=== PATIENT | female | born 1970 | race Caucasian/White ===

== ENCOUNTER → 2017-03-02 | Outpatient (CLI) | payer BC ==
[2017-03-02 18:10] LABS: Follicle Stimulating Hormone 3.8 mIU/mL; Prolactin 22.4 ng/mL (3.0-18.6)
== END ==
LOC: LABWHC1 16:57
PROVIDERS: ATTEND Family Medicine
DX: N64.3 Galactorrhea not associated with childbirth (principal)
CPT/HCPCS: 36415; 82533; 82670; 83001; 83002; 84146; 84439; 84443; 84481

== ENCOUNTER → 2017-03-11 | Outpatient (CLI) | payer BC ==
--- NOTE | 2017-03-23 11:43 | MM ---
Reason for exam: screening (asymptomatic). Last mammogram was performed 7 years and 1 month ago. History: Patient had first child at age 35. Family history of breast cancer in mother at age 68. Took hormonal contraceptives for 12 years beginning at age 16. Physical Findings: A clinical breast exam by your physician is recommended on an annual basis and results should be correlated with mammographic findings. MG 3D Screening Mammo W/Cad Bilateral CC and MLO view(s) were taken. Prior study comparison: January 18, 2014, mammogram, performed at [facility]. The breast tissue is heterogeneously dense. This may lower the sensitivity of mammography. There is no discrete abnormality. ASSESSMENT: Negative, BI-RAD 1 RECOMMENDATION: Routine screening mammogram of both breasts in 1 year. Manage patient on a clinical basis. Nipple discharge.
== END | disposition home or self-care (01) ==
LOC: RADMAMWWP 07:47
PROVIDERS: ATTEND Family Medicine
DX: Z12.31 Encounter for screening mammogram for malignant neoplasm of breast (principal); Z80.3 Family history of malignant neoplasm of breast
CPT/HCPCS: 77063; G0202

== ENCOUNTER → 2017-03-19 | Outpatient (CLI) | payer BC ==
[2017-03-19 12:04] LABS: Prolactin 24.5 ng/mL (3.0-18.6)
[2017-03-19 16:45] LABS: ACTH 10.9 pg/mL (0.00-45.99)
== END | disposition home or self-care (01) ==
LOC: LABWHC1 07:35
PROVIDERS: ATTEND Internal Medicine Endocrinology, Diabetes & Metabolism
DX: E22.1 Hyperprolactinemia (principal); E27.40 Unspecified adrenocortical insufficiency; R53.83 Other fatigue
CPT/HCPCS: 36415; 82024; 82533; 82607; 84146; 84439; 84443; 84480

== ENCOUNTER → 2017-04-04 | Outpatient (CLI) | payer BC ==
--- NOTE | 2017-04-04 11:10 | MR ---
Pituitary MRI HISTORY: Hyperprolactinemia Multiplanar multisequence and postcontrast images obtained through the sella turcica following 20 cc MultiHance IV Correlation to prior brain MRI 21 January 2014 The pituitary shows a stable appearance. No area of focal decreased enhancement to suggest pituitary adenoma, the pituitary shows stable size. Pituitary stalk is midline. Suprasellar cistern is unremark able. Optic chiasm is within normal limits. Cavernous sinuses show symmetric. Incidental note made of probable mucus retention cyst to the right of midline in the maxillary sinus. Corpus callosum is unremarkable. There are normal vascular flow voids. IMPRESSION: Pituitary adenoma is not evident.
== END | disposition home or self-care (01) ==
LOC: RADMRIMAIN 09:36
PROVIDERS: ATTEND Internal Medicine Endocrinology, Diabetes & Metabolism
DX: E22.1 Hyperprolactinemia (principal)
CPT/HCPCS: 70553; A9577

== ENCOUNTER → 2018-01-14 | Outpatient (CLI) | payer BC ==
[2018-01-14 08:09] LABS: Basophils % (A) 1 %; Eosinophils # (A) 0.2 k/uL (0-0.7); Eosinophils % (A) 3 %; HCT 41.9 % (34.0-46.0); Lymphocytes # (A) 1.7 k/uL (1.0-4.8); Lymphocytes % (A) 28 %; MCH 30.6 pg (25.0-35.0); MCHC 33.4 g/dL (31.0-37.0); MCV 91.5 fL (80.0-100.0); Mean Platelet Volume 7.2; Monocytes # (A) 0.3 k/uL (0-1.0); Monocytes % (A) 5 %; Neutrophils # (A) 3.9 k/uL (1.3-7.7); Neutrophils % (A) 62 %; Platelet Count 308 k/uL (150-450); RBC 4.58 m/uL (3.80-5.40); RDW 12.6 % (11.5-15.5); WBC 6.2 k/uL (3.8-10.6)
== END | disposition home or self-care (01) ==
LOC: LABPAT 07:40
PROVIDERS: ATTEND Obstetrics & Gynecology Obstetrics
DX: Z01.812 Encounter for preprocedural laboratory examination (principal); N92.1 Excessive and frequent menstruation with irregular cycle
CPT/HCPCS: 36415; 85025

== ENCOUNTER 2018-02-02 06:15 | Day surgery (SDC) | payer BC ==
[2018-01-29 12:06] VITALS: BMI 34.0
[~2018-02-02 06:15] MED LIST: DEXAMETHASONE SOD PHOSPHATE 10 MG/ML 1 ML VIAL IV ONE; LACTATED RINGERS 1,000 ML IV SCH; LIDOCAINE 1% 20 ML VIAL (10MG/ML) FOR IV START INTRADERMA PRN; MIDAZOLAM 2 MG/2 ML VIAL IV PRN; MORPHINE SULFATE 4 MG/ML SYRINGE IV PRN; ONDANSETRON 4 MG/2 ML VIAL IVP ONE; Pre Op ABX Message 1 EACH MISC MISCELLANE ONE; SCOPOLAMINE 1.5MG/72HR PATCH TRANSDERM ONE
[2018-02-02] MEDS ORDERED: LACTATED RINGERS 1,000 ML IV ONE ×3 (06:41→08:52)
[2018-02-02] MEDS ORDERED: fentaNYL (PF) 50 MCG/ML 2 ML AMP ONE (07:37)
[2018-02-02] MEDS ORDERED: PROPOFOL 10 MG/ML 20 ML VIAL IV ONE (07:37)
[2018-02-02] MEDS ORDERED: MIDAZOLAM 2 MG/2 ML VIAL ONE (07:37)
[2018-02-02] MEDS ORDERED: LIDOCAINE 1% INJ 10MG/ML (20 ML MDV) ONE (07:37)
[2018-02-02] MEDS ORDERED: KETOROLAC 30 MG/ML 1 ML VIAL ONE (07:37)
--- NOTE | 2018-02-02 08:10 | P.OP ---
Date of Procedure: 02/02/18 Preoperative Diagnosis: Menorrhagia Postoperative Diagnosis: Same Procedure(s) Performed: Hysteroscopy, dilation and curettage, endometrial ablation with NovaSure Anesthesia: MAC Surgeon: Lotus Vasques Estimated Blood Loss (ml): 5 IV fluids (ml): 500 Urine output (ml): 100 Pathology: other (Endometrial curettings) Condition: stable Disposition: PACU Indications for Procedure: Menorrhagia Operative Findings: Normal endometrial cavity with proliferative endometrium Description of Procedure: Patient was seen in the preoperative area and informed consent was obtained. Patient denied questions and was taken back to the operating room once in the operating suite and general anesthesia was obtained by the anesthesia Department without difficulty. She was then prepped and draped in the normal sterile fashion in the dorsal lithotomy position. Lateral catheter was then used to drain the bladder of clear yellow urine. A weighted speculum was placed in the posterior vaginal vault the anterior lip of the cervix was visualized and grasped with a single-tooth tenaculum the endocervical canal was then dilated to 18-[place]. Hysteroscope was placed through the cervix and toward endometrial cavity the above-noted findings were visualized. At this point a sharp curettage was then performed until a gritty texture was noted in all 4 quadrants of the uterine cavity. At this time the NovaSure device was opened and set to the uterine measurements a length of 4 with of 3.9, power 86 for a total cycle time of 79. Of note it did pass the cavity assessment prior to enabling the device. After the cycle was complete the NovaSure was removed without difficulty. The single-tooth tenaculum was taken off of the anterior lip of the cervix hemostasis was appreciated. Correct 2 patient tolerated procedure well and was taken to the recovery room awake and in stable condition
[2018-02-02 08:24] VITALS: RESP 16; TEMP 97.8
[2018-02-02 09:46] VITALS: BP 106/59; PULSE 65
== END 2018-02-02 09:55 | disposition home or self-care (01) ==
LOC: OR 06:15
PROVIDERS: ATTEND Obstetrics & Gynecology Obstetrics
DX: N92.0 Excessive and frequent menstruation with regular cycle (principal); J45.909 Unspecified asthma, uncomplicated; E07.9 Disorder of thyroid, unspecified; F39 Unspecified mood [affective] disorder; Z79.899 Other long term (current) drug therapy
CPT/HCPCS: 81025; 88305; 58563; J2250; J1100; J2405; J2001; J3010; J1885; J2704

== ENCOUNTER → 2018-06-18 | Outpatient (CLI) | payer BC ==
--- NOTE | 2018-06-22 14:11 | MM ---
Reason for exam: screening (asymptomatic). Last mammogram was performed 1 year and 3 months ago. History: Patient had first child at age 35. Family history of breast cancer in paternal aunt and breast cancer in mother at age 68. Took hormonal contraceptives for 12 years beginning at age 16. MG 3D Screening Mammo W/Cad Bilateral CC and MLO view(s) were taken. XCCL view(s) were taken of the right breast. Prior study comparison: March 11, 2017, bilateral MG 3d screening mammo w/cad. January 18, 2014, mammogram, performed at [facility]. The breast tissue is heterogeneously dense. This may lower the sensitivity of mammography. No suspicious left breast abnormality. New focal asymmetry in the right lower inner quadrant at anterior-middle depth. ASSESSMENT: Incomplete: need additional imaging evaluation, BI-RAD 0 RECOMMENDATION: Special view mammogram of the right breast.
== END | disposition home or self-care (01) ==
LOC: RADMAMWWP 07:44
PROVIDERS: ATTEND Family Medicine
DX: Z12.31 Encounter for screening mammogram for malignant neoplasm of breast (principal)
CPT/HCPCS: 77063; 77067

== ENCOUNTER → 2018-06-23 | Outpatient (CLI) | payer BC ==
--- NOTE | 2018-06-24 10:03 | MM ---
Reason for exam: additional evaluation requested from abnormal screening. Last mammogram was performed less than 1 month ago. History: Patient is postmenopausal and had first child at age 35. Family history of breast cancer in paternal aunt and breast cancer in mother at age 68. Took hormonal contraceptives for 12 years beginning at age 16. Physical Findings: Nurse did not find any significant physical abnormalities on exam. MG 3D Work Up W/Cad RT CC and MLO view(s) were taken of the right breast. Prior study comparison: June 18, 2018, bilateral MG 3d screening mammo w/cad. March 11, 2017, bilateral MG 3d screening mammo w/cad. January 18, 2014, mammogram, performed at [facility]. No distinct lesion persists on additional views. These results were verbally communicated with the patient and result sheet given to the patient on 06/23/18. ASSESSMENT: Negative, BI-RAD 1 RECOMMENDATION: Return to routine screening mammogram schedule for both breasts.
== END ==
LOC: RADMAMWWP 07:35
PROVIDERS: ATTEND Family Medicine
DX: R92.8 Other abnormal and inconclusive findings on diagnostic imaging of breast (principal)
CPT/HCPCS: 77061; 77065

== ENCOUNTER → 2019-07-21 | Outpatient (CLI) | payer BC ==
[2019-07-21 09:16] LABS: HCT 43.7 % (34.0-46.0); HGB 14.9 gm/dL (11.4-16.0); MCH 31.8 pg (25.0-35.0); MCV 93.5 fL (80.0-100.0); Platelet Count 257 k/uL (150-450); RBC 4.67 m/uL (3.80-5.40); RDW 12.6 % (11.5-15.5); WBC 5.6 k/uL (3.8-10.6)
[2019-07-21 09:18] LABS: Appearance,Urine Clear (Clear); Bilirubin,Urine Negative (Negative); Blood,Urine Negative (Negative); Color,Urine Yellow; Glucose,Urine (UA) Negative (Negative); Ketones,Urine Negative (Negative); Leukocyte Esterase,Urine Negative (Negative); Nitrite,Urine Negative (Negative); PH, Urine 5.5 (5.0-8.0); Protein,Urine Negative (Negative); Specific Gravity,Urine 1.023 (1.001-1.035); Urobilinogen,Urine <2.0 mg/dL (<2.0)
[2019-07-21 16:40] LABS: African American GFR (CKD) 102.5 (60.0-200.0); Albumin 4.6 g/dL (3.80-4.90); Albumin/Globulin Ratio 2.42 (1.60-3.17); Anion Gap 7.8 mmol/L (4.00-12.00); BUN/Creat Ratio 27.5 Ratio (12.00-20.00); Calcium 9.6 mg/dL (8.7-10.3); Carbon Dioxide 27.2 mmol/L (21.6-31.8); Chol/HDL Ratio 2.86; Globulin 1.9 g/dL (1.6-3.3); LDL Cholesterol,Calculated 132.8 mg/dL (0.0-131.0); Potassium 4.6 mmol/L (3.5-5.5); Total Bilirubin 0.2 mg/dL (0.2-1.2); Total Protein 6.5 g/dL (6.2-8.2); VLDL Calculation 12.2 mg/dL (5.00-40.00)
== END | disposition home or self-care (01) ==
LOC: LABWHC1 08:28
PROVIDERS: ATTEND Family Medicine
DX: Z00.00 Encounter for general adult medical examination without abnormal findings (principal)
CPT/HCPCS: 36415; 80053; 80061; 81003; 85027

== ENCOUNTER 2019-12-05 16:52 | Emergency (ER) | payer BC ==
[2019-12-05 17:17] VITALS: PULSE 88; RESP 16; TEMP 98.3
[2019-12-05] MEDS ORDERED: DICYCLOMINE 10 MG/ML 2 ML AMP IM STA (17:48)
[2019-12-05] MEDS ORDERED: ONDANSETRON 4 MG/2 ML VIAL IVP STA (17:48)
[2019-12-05] MEDS ORDERED: PANTOPRAZOLE 40 MG/10 ML VIAL IVP STA (17:48)
[2019-12-05] MEDS ORDERED: KETOROLAC 30 MG/ML 1 ML VIAL IVP STA (17:48)
[2019-12-05] MEDS ORDERED: SODIUM CHLORIDE 0.9% 1,000 ML IV STA (17:48)
--- NOTE | 2019-12-05 17:54 | ED ---
Abdominal Pain HPI - General Source: patient Mode of arrival: ambulatory Limitations: no limitations <Salvador Vazquez - Last Filed: 12/05/19 20:37> <Delia Farah - Last Filed: 12/09/19 14:58> - General Chief Complaint: Abdominal Pain Stated Complaint: rt sided abd pain Time Seen by Provider: 12/05/19 17:33 - History of Present Illness Initial Comments: Patient is a 49-year-old female presents emergency Department with a chief complaint of abdominal pain. Patient states she has developed right lower quadrant abdominal pain over the last 3 weeks that has been gradually increasing severity. The pain is radiating to her right groin region and proximal anterior aspect of the right upper thigh. Patient reports taking ibuprofen that has been the only alleviating factor. Patient reports the pain is sharp and constant in nature. Patient reports the pain is not related to by mouth intake. Patient states over the last few days she is also developed nausea but no vomiting or diarrhea. Patient also reports decreased appetite. She does night sweats over the last few days but denies any fevers or chills. She denies increased urgency or frequency or dysuria. Patient denies any obstructive urinary symptoms. Denies hematuria, hematochezia or melena. Denies history of kidney stones. Denies any back pain chest pain or shortness of breath. Patient denies any extraneous physical activity prior to or since the symptoms began. (Salvador Vazquez) - Related Data Home Medications Medication Instructions Recorded Confirmed Citalopram Hydrobromide [CeleXA] 40 mg PO HS 01/29/18 02/02/18 Testosterone & Estrogen 1 dose SQ DIRECTED PRN 01/29/18 02/02/18 Thyroid,Pork [Honing Machine Operator Tool Thyroid 120] 30 mg PO DAILY 01/29/18 01/29/18 Vitamin A/D/K 1 dose PO DAILY 01/29/18 02/02/18 Allergies Allergy/AdvReac Type Severity Reaction Status Date / Time No Known Allergies Allergy Verified 01/29/18 11:50 Review of Systems ROS Other: All systems not noted in ROS Statement are negative. <Salvador Vazquez - Last Filed: 12/05/19 20:37> ROS Other: All systems not noted in ROS Statement are negative. <Delia Farah - Last Filed: 12/09/19 14:58> ROS Statement: Those systems with pertinent positive or pertinent negative responses have been documented in the HPI. Past Medical History Past Medical History: No Reported History History of Any Multi-Drug Resistant Organisms: None Reported Additional Past Surgical History / Comment(s): lap surgery. Past Psychological History: No Psychological Hx Reported Smoking Status: Current every day smoker Past Alcohol Use History: None Reported Past Drug Use History: None Reported <Salvador Vazquez - Last Filed: 12/05/19 20:37> General Exam Limitations: no limitations General appearance: alert, in no apparent distress Head exam: Present: atraumatic, normocephalic, normal inspection Eye exam: Present: normal appearance, PERRL, EOMI Pupils: Present: normal accommodation ENT exam: Present: normal exam, normal oropharynx, mucous membranes moist Neck exam: Present: normal inspection, full ROM Respiratory exam: Present: normal lung sounds bilaterally. Absent: wheezes Cardiovascular Exam: Present: regular rate, normal rhythm, normal heart sounds GI/Abdominal exam: Present: soft, tenderness (Right lower quadrant abdominal pain. McBurney point tenderness. Negative Rovsing, obturator or Psoas sign.). Absent: distended, guarding, rebound, rigid, mass, hernia Extremities exam: Present: normal inspection, full ROM, normal capillary refill, other (+2 ulnar radial pulses bilaterally.). Absent: calf tenderness (Negative Homans bilaterally.) Back exam: Present: normal inspection, full ROM. Absent: CVA tenderness (R), CVA tenderness (L) Neurological exam: Present: alert, oriented X3 Psychiatric exam: Present: normal affect, normal mood Skin exam: Present: warm, dry, intact, normal color <Salvador Vazquez - Last Filed: 12/05/19 20:37> Course Vital Signs 12/05/19 17:13 Temperature 98.3 F Pulse Rate 88 Respiratory 16 Rate Medical Decision Making - Lab Data Result diagrams: 12/05/19 18:10 12/05/19 18:10 <Salvador Vazquez - Last Filed: 12/05/19 20:37> - Lab Data Result diagrams: 12/05/19 18:10 12/05/19 18:10 <Delia Farah - Last Filed: 12/09/19 14:58> - Medical Decision Making Patient is a 49-year-old female presenting to the emergency department with a chief complaint of abdominal pain. On exam patient does have right lower quadrant abdominal pain with positive McBurney point tenderness but no other signs. No lymph nodes, inguinal or hernia were appreciated. Patient does have decreased appetite and nausea over the last few days along with increase of pain severity. Patient was also complaining of exacerbation of the pain as they were driving to the ED while she was going over bumps in the car. CBC and CMP are unremarkable. UA did show trace amount of ketones but otherwise unremarkable. CT abdomen and pelvis shows no acute underlying pathologies. The suspect the patient has muscular strain of the abdominal muscles and groin as well. Patient was given IV fluids, Zofran and Toradol. Reevaluation patient reports her sy mptoms have completely resolved. Patient advised to alternate between Tylenol and Motrin for pain control. She was advised to perform exercises to stretch her core abdominal muscles. She was advised to follow-up with primary care. She was also given Zofran in case of nausea. Strict return parameters were thoroughly discussed. Patient was understanding and agreeable. Case discussed with physician. (Salvador Vazquez) I was available for consultation in the emergency department. The history and physical exam were done by the midlevel provider. I was consulted for this patients care. I reviewed the case with the midlevel provider and based on their presentation of the patient, I agree with the assessment, medical decision making and plan of care as documented. Chart was dictated using [employer] dictation software. Attempts were made to correct any dictation errors however some typographical errors may persist. (Delia Farah) - Lab Data Lab Results 12/05/19 12/05/19 12/05/19 Range/Units 18:10 18:10 18:10 WBC 9.3 (3.8-10.6) k/uL RBC 4.74 (3.80-5.40) m/uL Hgb 14.3 (11.4-16.0) gm/dL Hct 44.1 (34.0-46.0) % MCV 93.1 (80.0-100.0) fL MCH 30.2 (25.0-35.0) pg MCHC 32.4 (31.0-37.0) g/dL RDW 12.3 (11.5-15.5) % Plt Count 308 (150-450) k/uL Neutrophils % 73 % Lymphocytes % 19 % Monocytes % 4 % Eosinophils % 2 % Basophils % 1 % Neutrophils # 6.8 (1.3-7.7) k/uL Lymphocytes # 1.8 (1.0-4.8) k/uL Monocytes # 0.3 (0-1.0) k/uL Eosinophils # 0.2 (0-0.7) k/uL Basophils # 0.1 (0-0.2) k/uL Sodium 138 (137-145) mmol/L Potassium 4.4 (3.5-5.1) mmol/L Chloride 106 (98-107) mmol/L Carbon Dioxide 25 (22-30) mmol/L Anion Gap 7 mmol/L BUN 11 (7-17) mg/dL Creatinine 0.60 (0.52-1.04) mg/dL Est GFR (CKD-EPI)AfAm >90 (>60 ml/min/1.73 sqM) Est GFR (CKD-EPI)NonAf >90 (>60 ml/min/1.73 sqM) Glucose 86 (74-99) mg/dL Calcium 9.2 (8.4-10.2) mg/dL Total Bilirubin 0.5 (0.2-1.3) mg/dL AST 32 (14-36) U/L ALT 28 (4-34) U/L Alkaline Phosphatase 88 (38-126) U/L Total Protein 7.6 (6.3-8.2) g/dL Albumin 4.5 (3.5-5.0) g/dL Amylase 57 (30-110) U/L Lipase 102 (23-300) U/L Urine Color Yellow Urine Appearance Cloudy H (Clear) Urine pH 5.5 (5.0-8.0) Ur Specific [place] 1.015 (1.001-1.035) Urine Protein Negative (Negative) Urine Glucose (UA) Negative (Negative) Urine Ketones Trace H (Negative) Urine Blood Negative (Negative) Urine Nitrite Negative (Negative) Urine Bilirubin Negative (Negative) Urine Urobilinogen <2.0 (<2.0) mg/dL Ur Leukocyte Esterase Trace H (Negative) Urine RBC 1 (0-5) /hpf Urine WBC 3 (0-5) /hpf Ur Squamous Epith Cells 5 H (0-4) /hpf Disposition Is patient prescribed a controlled substance at d/c from ED?: No Time of Disposition: 20:01 <Salvador Vazquez - Last Filed: 12/05/19 20:37> <Delia Farah - Last Filed: 12/09/19 14:58> Clinical Impression: Strain of abdominal muscle, Strain of right inguinal muscle Disposition: HOME SELF-CARE Condition: Stable Instructions (If sedation given, give patient instructions): Core Strengthening Exercises (ED) Additional Instructions: Please follow up with primary care. Alternate between Tylenol and Motrin for pain control. Return to emergency department if symptoms worsen. Referrals: Khadar Cantu MD [Primary Care Provider] - 1-2 days
[2019-12-05 18:33] LABS: Basophils # (A) 0.1 k/uL (0-0.2); Basophils % (A) 1 %; Eosinophils # (A) 0.2 k/uL (0-0.7); Eosinophils % (A) 2 %; HCT 44.1 % (34.0-46.0); HGB 14.3 gm/dL (11.4-16.0); Lymphocytes # (A) 1.8 k/uL (1.0-4.8); Lymphocytes % (A) 19 %; MCH 30.2 pg (25.0-35.0); MCHC 32.4 g/dL (31.0-37.0); MCV 93.1 fL (80.0-100.0); Monocytes # (A) 0.3 k/uL (0-1.0); Monocytes % (A) 4 %; Neutrophils # (A) 6.8 k/uL (1.3-7.7); Neutrophils % (A) 73 %; Platelet Count 308 k/uL (150-450); RBC 4.74 m/uL (3.80-5.40); RDW 12.3 % (11.5-15.5); WBC 9.3 k/uL (3.8-10.6)
[2019-12-05 18:40] LABS: Appearance,Urine Cloudy (Clear); Bilirubin,Urine Negative (Negative); Blood,Urine Negative (Negative); Color,Urine Yellow; Glucose,Urine (UA) Negative (Negative); Ketones,Urine Trace (Negative); Leukocyte Esterase,Urine Trace (Negative); Nitrite,Urine Negative (Negative); PH, Urine 5.5 (5.0-8.0); Protein,Urine Negative (Negative); RBC,Urine 1 /hpf (0-5); Specific Gravity,Urine 1.015 (1.001-1.035); Squamous Epithelial Cell,Urine 5 /hpf (0-4); Urobilinogen,Urine <2.0 mg/dL (<2.0); WBC,Urine 3 /hpf (0-5)
[2019-12-05 18:46] LABS: ALT 28 U/L (4-34); AST 32 U/L (14-36); African American GFR (CKD) >90 (>60 ml/min/1.73 sqM); Albumin 4.5 g/dL (3.5-5.0); Alkaline Phosphatase 88 U/L (38-126); Amylase 57 U/L (30-110); Anion Gap 7 mmol/L; Blood Urea Nitrogen 11 mg/dL (7-17); Calcium 9.2 mg/dL (8.4-10.2); Carbon Dioxide 25 mmol/L (22-30); Chloride 106 mmol/L (98-107); Glucose 86 mg/dL (74-99); Non-African American GFR(CKD) >90 (>60 ml/min/1.73 sqM); Potassium 4.4 mmol/L (3.5-5.1); Sodium 138 mmol/L (137-145); Total Bilirubin 0.5 mg/dL (0.2-1.3); Total Protein 7.6 g/dL (6.3-8.2)
--- NOTE | 2019-12-05 19:32 | CT ---
EXAMINATION TYPE: CT abdomen pelvis w con DATE OF EXAM: 12/05/2019 COMPARISON: None HISTORY: RLQ pain x2 weeks CT DLP: 1376.4 mGycm Automated exposure control for dose reduction was used. TECHNIQUE: Helical acquisition of images from the lung bases through the pelvis have been completed. CONTRAST: Performed without Oral Contrast and with IV Contrast, patient injected with 100 mL of Isovue 370. FINDINGS: LUNG BASES: No significant abnormality is appreciated. AORTA: No significant abnormality is appreciated. LIVER/GB: Liver is slightly heterogenous, low in density consistent with hepatic steatosis, some foca l sparing present along the dome. Gallbladder is unremarkable.. PANCREAS: No significant abnormality is seen. SPLEEN: No significant abnormality is seen. ADRENALS: No significant abnormality is seen. KIDNEYS: No significant abnormality is seen. REPRODUCTIVE ORGANS: 5 coronary uterus is suspected, there are fallopian tubal obstructive devices palomo spected bilaterally. BOWEL: No significant abnormality is seen. No evident appendicitis. FREE AIR: No Free Air visible. ASCITES: None visible. PELVIC ADENOPATHY: None visualized. RETROPERITONEAL ADENOPATHY: No Retroperitoneal Adenopathy visible. URINARY BLADDER: No significant abnormality is seen. OSSEOUS STRUCTURES: No significant abnormality is seen. IMPRESSION: NO ABNORMALITY EVIDENT TO ACCOUNT FOR PATIENT'S SYMPTOMS
== END 2019-12-05 21:00 | disposition home or self-care (01) ==
LOC: EC 16:52
DX: S39.011A Strain of muscle, fascia and tendon of abdomen, initial encounter (principal); R11.0 Nausea; R61 Generalized hyperhidrosis; F17.200 Nicotine dependence, unspecified, uncomplicated; Z98.890 Other specified postprocedural states; X50.9XXA Other and unspecified overexertion or strenuous movements or postures, initial encounter
CPT/HCPCS: 36415; 80053; 82150; 83690; 85025; 81001; 74177; 99284; 96372; 96374; 96375 ×2; 96361; J0500; J2405; J1885; C9113; Q9967

== ENCOUNTER → 2019-12-21 | Outpatient (CLI) | payer BC ==
[2019-12-21 15:31] VITALS: BP 121/83; PULSE 90; TEMP 98.5; BMI 36.6
--- NOTE | 2019-12-21 16:15 | P.HPBAR ---
Bariatric H&P - History & Physicial H&P Date: 12/21/19 History & Physicial: Visit/CC: bariatric consultation Patient initial contact: Initial weight: 93.213 kg Initial weight in pounds: 205.50 Height: 5 ft 2.75 in Initial BMI: 36.6 Last weight: Current weight: 93.213 kg Current weight in pounds: 205.50 Current BMI: 36.6 [place] body weight (based on NIH guidelines): 51.596 kg Excess body weight loss: 0.0% The patient is a 49 year-old F who presents for Bariatric Assessment. HPI: She has gained weight in the last 3 years. She has tried Weight watchers and medications. Her motherside of her family has severe obesity. She has family history of breast cancer. She reports generalized fatigue. She is looking into the gastrectomy. She was placed on thyroid medications. She reports left knee arthritis and ACL repair. 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 She has severe limitation from her knee. She has a Master's degree. She is looking into the sleeve gastrectomy procedures. She has severe reflux disease. No reports of easy bruising. No DVTs in herself. Her mother had DVT. She has chronic diarrhea. No Crohn's or ulcerative colitis in the family. No stomach or esophageal cancer in the family. No lupus or MS in the family. She has occassional food get stuck in the throat. 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 She has bilateral arthritis of the hips right greater left. Left knee arthritis present. She has ankle arthritis. She has been started on Venlafaxine for 3 months. She has been on anti-depressants for at least [address] SCAN: Reveiwed for right lower quadrant pain PLAN: 1. MBSC 2. Sleep apnea Past Medical History Past Medical History: No Reported History, GERD/Reflux Additional Past Medical History / Comment(s): pt to undergo sleep consultation for suspected sleep apnea History of Any Multi-Drug Resistant Organisms: None Reported Past Surgical History: Uterine Ablation Additional Past Surgical History / Comment(s): leap surgery, uterine ablation Past Anesthesia/Blood Transfusion Reactions: No Reported Reaction Additional Past Anesthesia/Blood Transfusion Reaction / Comm: No blood transfusion to date Past Psychological History: Anxiety, Depression Additional Psychological History / Comment(s): Takes Effexor 150mg daily Smoking Status: Current every day smoker Past Alcohol Use History: None Reported Past Drug Use History: None Reported Surgical - Exam Vital Signs Temp Pulse BP 98.5 F 90 121/83 12/21/19 15:22 12/21/19 15:22 12/21/19 15:22 Bariatric Checklist Checklist: Plan: Checklist: EGD: 1. Hiatal hernia: 2. H. Pylori: HgbA1c: Vitamin D: Smoking: Current every day smoker Primary care physician referral: alo martin Psychiatry clearance: Cardiology clearance: Sleep study: Diet journal: VTE risk score: VTE risk level: Rehab needs at discharge:
== END | disposition home or self-care (01) ==
LOC: BARWHC3 14:48
PROVIDERS: ATTEND Surgery Plastic and Reconstructive Surgery
DX: R63.5 Abnormal weight gain (principal); R53.83 Other fatigue; Z98.890 Other specified postprocedural states; G47.33 Obstructive sleep apnea (adult) (pediatric); K52.9 Noninfective gastroenteritis and colitis, unspecified; M19.079 Primary osteoarthritis, unspecified ankle and foot; M16.0 Bilateral primary osteoarthritis of hip; K21.9 Gastro-esophageal reflux disease without esophagitis; F17.200 Nicotine dependence, unspecified, uncomplicated; Z83.2 Family history of diseases of the blood and blood-forming organs and certain disorders involving the immune mechanism; Z80.3 Family history of malignant neoplasm of breast; Z83.49 Family history of other endocrine, nutritional and metabolic diseases; Z79.899 Other long term (current) drug therapy
CPT/HCPCS: 99211

== ENCOUNTER → 2019-12-26 | Outpatient (CLI) | payer BC ==
[2019-12-26 08:16] LABS: HCT 41.9 % (34.0-46.0); HGB 13.7 gm/dL (11.4-16.0); MCH 30.3 pg (25.0-35.0); MCHC 32.7 g/dL (31.0-37.0); MCV 92.6 fL (80.0-100.0); Mean Platelet Volume 7.1; Platelet Count 305 k/uL (150-450); RBC 4.53 m/uL (3.80-5.40); RDW 12.3 % (11.5-15.5); WBC 6.6 k/uL (3.8-10.6)
[2019-12-26 08:18] LABS: INR 0.9 (<1.2); Partial Thromboplastin Time 23.3 sec (22.0-30.0); Prothrombin Time 9.6 sec (9.0-12.0)
[2019-12-26 11:50] LABS: % Iron Saturation 34.38 (12.00-45.00); African American GFR (CKD) 119.6 (60.0-200.0); Albumin 4.2 g/dL (3.80-4.90); Albumin/Globulin Ratio 2.21 (1.60-3.17); Anion Gap 2.7 mmol/L (4.00-12.00); BUN/Creat Ratio 22.86 Ratio (12.00-20.00); Calcium 8.8 mg/dL (8.7-10.3); Carbon Dioxide 28.3 mmol/L (21.6-31.8); Chol/HDL Ratio 3.75; Globulin 1.9 g/dL (1.6-3.3); LDL Cholesterol,Calculated 143.4 mg/dL (0.0-131.0); Magnesium 1.9 mg/dL (1.5-2.4); Non-African American GFR(CKD) 103.2 (60.0-200.0); Phosphorus 3.5 mg/dL (2.4-5.1); Potassium 4.6 mmol/L (3.5-5.5); Total Bilirubin 0.2 mg/dL (0.3-1.2); Total Protein 6.1 g/dL (6.2-8.2); VLDL Calculation 24.6 mg/dL (5.00-40.00)
[2019-12-26 12:00] LABS: Ferritin 35.7 ng/mL (10.0-291.0)
[2019-12-26 12:04] LABS: Folate, Serum 10.2 ng/mL
[2019-12-26 12:25] LABS: Hemoglobin A1C 6.2 % (4.0-6.0)
[2019-12-27 12:44] LABS: Zinc, Serum 78 ug/dL (60-130)
[2019-12-29 08:19] LABS: Vit B1(Thiamine) 56 ug/L (38-122)
== END | disposition home or self-care (01) ==
LOC: LABWHC1 07:37
PROVIDERS: ATTEND Surgery Plastic and Reconstructive Surgery
DX: E21.1 Secondary hyperparathyroidism, not elsewhere classified (principal); D50.9 Iron deficiency anemia, unspecified; K90.9 Intestinal malabsorption, unspecified; E55.9 Vitamin D deficiency, unspecified; K74.1 Hepatic sclerosis; N19 Unspecified kidney failure; K50.90 Crohn's disease, unspecified, without complications
CPT/HCPCS: 36415; 80053; 80061; 82306; 82525; 82607; 82728; 82746; 83036; 83540; 83550; 83735; 83970; 84100; 84134; 84255; 84425; 84443; 84590; 84630; 85027; 85610; 85730

== ENCOUNTER 2020-01-23 11:36 | Day surgery (SDC) | payer BC ==
[2020-01-18 13:20] VITALS: BMI 38.7
[~2020-01-23 11:36] MED LIST changes: -DEXAMETHASONE SOD PHOSPHATE 10 MG/ML 1 ML VIAL IV ONE; +LIDOCAINE 1% (10MG/ML) FOR IV START INTRADERMA PRN; -LIDOCAINE 1% 20 ML VIAL (10MG/ML) FOR IV START INTRADERMA PRN; -MIDAZOLAM 2 MG/2 ML VIAL IV PRN; -MORPHINE SULFATE 4 MG/ML SYRINGE IV PRN; -ONDANSETRON 4 MG/2 ML VIAL IVP ONE; -Pre Op ABX Message 1 EACH MISC MISCELLANE ONE; -SCOPOLAMINE 1.5MG/72HR PATCH TRANSDERM ONE
[2020-01-23 12:14] VITALS: RESP 16; TEMP 97.9
[2020-01-23] MEDS ORDERED: LIDOCAINE 1% INJ 10MG/ML (20 ML MDV) ONE (14:05)
[2020-01-23] MEDS ORDERED: PROPOFOL 10 MG/ML 20 ML VIAL IV ONE (14:05)
--- NOTE | 2020-01-23 14:26 | P.GSHP ---
History of Present Illness H&P Date: 01/23/20 CHIEF COMPLAINT: GERD HISTORY OF PRESENT ILLNESS: The patient is a 49-year-old female who presents reports gastroesophageal reflux disease. Upper endoscopy was offered for further evaluation and management. PAST MEDICAL HISTORY: Please see list. PAST SURGICAL HISTORY: Please see list. MEDICATIONS: Please see list. ALLERGIES: Please see list. SOCIAL HISTORY: No illicit drug use FAMILY HISTORY: No reports of Crohn disease or ulcerative colitis. REVIEW OF ORGAN SYSTEMS: CONSTITUTIONAL: No reports of fevers or chills. GI: Denies any blood in stools or constipation. PHYSICAL EXAM: VITAL SIGNS: Stable GENERAL: Well-developed and pleasant in no acute distress. HEENT: No scleral icterus. Extraocular movements grossly intact. Moist buccal mucosa. NECK: Supple without lymphadenopathy. CHEST: Unlabored respirations. Equal bilateral excursions. CARDIOVASCULAR: Regular rate and rhythm. Distal 2+ pulses. ABDOMEN: Soft, nondistended. MUSCULOSKELETAL: No clubbing, cyanosis, or edema. ASSESSMENT: 1. Gastroesophageal reflux disease PLAN: 1. Recommend proceeding with an upper endoscopy Past Medical History Past Medical History: GERD/Reflux, Osteoarthritis (OA) Additional Past Medical History / Comment(s): ESSURE BIRTHCONTROL, ARTHRITIS SPINE, HX OF SVT & IRREGULAR HEART BEAT IN THE PAST., CONSTIPATION/DIARRHEA. , TESTING PLANNED FOR SLEEP APNEA. History of Any Multi-Drug Resistant Organisms: None Reported Past Surgical History: Orthopedic Surgery, Uterine Ablation Additional Past Surgical History / Comment(s): leep surgery, uterine ablation (2018). , left ACL surgery Past Anesthesia/Blood Transfusion Reactions: No Reported Reaction, Family History of Problems w/ Anesthesia Additional Past Anesthesia/Blood Transfusion Reaction / Comment(s): patient mother has difficulty waking up, small airway. Past Psychological History: Anxiety, Depression Additional Psychological History / Comment(s): . Smoking Status: Current every day smoker Past Alcohol Use History: Occasional Additional Past Alcohol Use History / Comment(s): TRYING TO QUIT, SMOKES 1/2 PPD (DOWN FROM 1 1/2 PPD). HAS BEEN SMOKING ON AND OFF FOR 12 YEARS. Past Drug Use History: None Reported - Past Family History Mother Family Medical History: Cancer Additional Family Medical History / Comment(s): BREAST CANCER Medications and Allergies Home Medications Medication Instructions Recorded Confirmed Type Venlafaxine HCl [Effexor XR] 150 mg PO HS 12/21/19 01/18/20 History Cholecalciferol [Vitamin D3 (25 10,000 units PO DAILY 01/02/20 01/18/20 History Mcg = 1000 Iu)] Acetaminophen/Diphenhydramine 0.5 tab PO HS PRN 01/18/20 01/18/20 History [Tylenol PM 500-25mg] Calcium Citrate 1,200 mg PO DAILY 01/18/20 01/18/20 History Allergies Allergy/AdvReac Type Severity Reaction Status Date / Time No Known Allergies Allergy Verified 01/23/20 12:00
--- NOTE | 2020-01-23 14:29 | P.PCN ---
Date of Procedure: 01/23/20 Description of Procedure: PREOPERATIVE DIAGNOSIS: Gastroesophageal reflux disease. Morbid obesity. POSTOPERATIVE DIAGNOSIS: Morbid obesity. Gastritis. Gastroesophageal reflux disease. OPERATION: Esophagogastroduodenoscopy with biopsies along antrum. SURGEON: Flora Ardon MD ANESTHESIA: MAC. INDICATIONS: The patient is a 49-year-old female who presents with a history of reflux disease. Benefits and risks of the procedure were described. Informed consent was obtained. DESCRIPTION: The patient was brought into the endoscopy suite and laid in the left lateral decubitus position. An Olympus gastroscope was passed along the posterior oropharynx down to the distal esophagus where the squamocolumnar junction was encountered at 37 cm from the incisors. The stomach was entered and no bile reflux was found. Additional findings are listed below. Biopsies with cold forceps were obtained of the antrum. The first through third portion of the duodenum was examined and unremarkable. Retroflexion of the scope confirmed Hill grade 2 lower esophageal valve. The squamocolumnar junction demonstrated minimal LA grade A erosive esophagitis. The stomach was desufflated. The patient tolerated the procedure well. FINDINGS: Squamocolumnar junction 37 cm from the incisors. Diaphragmatic hiatus at 37 cm. Hill grade 2 lower esophageal valve. LA grade A erosive esophagitis. No active duodenitis. Chronic gastritis RECOMMENDATIONS: Upper endoscopy as needed. Plan - Discharge Summary New Discharge Prescriptions: Continue Venlafaxine HCl [Effexor XR] 150 mg PO HS Cholecalciferol [Vitamin D3 (25 Mcg = 1000 Iu)] 10,000 units PO DAILY Calcium Citrate 1,200 mg PO DAILY Acetaminophen/Diphenhydramine [Tylenol PM 500-25mg] 0.5 tab PO HS PRN PRN Reason: Pain Discharge Medication List Venlafaxine HCl [Effexor XR] 150 mg PO HS 12/21/19 [History] Cholecalciferol [Vitamin D3 (25 Mcg = 1000 Iu)] 10,000 units PO DAILY 01/02/20 [History] Acetaminophen/Diphenhydramine [Tylenol PM 500-25mg] 0.5 tab PO HS PRN 01/18/20 [History] Calcium Citrate 1,200 mg PO DAILY 01/18/20 [History] Follow up Appointment(s)/Referral(s): Flora Ardon MD [STAFF PHYSICIAN] - 02/15/20 Patient Instructions/Handouts: Gastroesophageal Reflux Disease (DC) Discharge Disposition: HOME SELF-CARE
[2020-01-23 14:53] VITALS: BP 125/82; PULSE 75
== END 2020-01-23 15:25 | disposition home or self-care (01) ==
LOC: ORWHC2ENDO 11:36
PROVIDERS: ATTEND Surgery Plastic and Reconstructive Surgery
DX: K21.0 Gastro-esophageal reflux disease with esophagitis (principal); K29.50 Unspecified chronic gastritis without bleeding; M19.90 Unspecified osteoarthritis, unspecified site; Z98.890 Other specified postprocedural states; F41.9 Anxiety disorder, unspecified; F32.9 Major depressive disorder, single episode, unspecified; F17.210 Nicotine dependence, cigarettes, uncomplicated; Z80.3 Family history of malignant neoplasm of breast; E66.01 Morbid (severe) obesity due to excess calories; Z68.38 Body mass index [BMI] 38.0-38.9, adult; Z79.3 Long term (current) use of hormonal contraceptives; Z79.899 Other long term (current) drug therapy
CPT/HCPCS: 81025; 88305; 43239; J2001; J2704

== ENCOUNTER → 2020-02-15 | Outpatient (CLI) | payer BC ==
[2020-02-15 13:25] VITALS: BP 121/84; PULSE 107; RESP 16; TEMP 98.2; BMI 38.5
--- NOTE | 2020-02-15 14:14 | P.PN ---
Subjective Progress Note Date: 02/15/20 DATE OF SERVICE: 02/15/2020 CHIEF COMPLAINT: Morbid obesity HISTORY OF PRESENT ILLNESS: Emi Freitas is a 49-year-old female who comes in with lifelong morbid obesity. She reports reflux disease including osteoarthritis of the hips, knees, and lower back. She is currently pending sleep study, but on hold due to COVID-19 pandemic. She is looking into the gastric bypass. She has completed an upper endoscopy and is pending evaluation by her receiving operator for history of supraventricular tachycardia. At height of 5 feet 2.75 inches, her ideal body weight is 135 pounds. She comes in 216 pounds from 205 pounds, 2 months ago. She has gained 10 pounds in 2 months. Her body mass index is 36.7 up to 38.6. She is 81 pounds overweight. PAST MEDICAL HISTORY: 1. Morbid obesity due to excess calories 2. Body mass index of 36.7, initial 3. Depressive disorder 4. Gastroesophageal reflux disease 5. Osteoarthritis of the hips. 6. Osteoarthritis of the knees. 7. Osteoarthritis of the lower back. PAST SURGICAL HISTORY: 1. Diagnostic laparoscopy 2. Upper endoscopy HOME MEDICATIONS: Home Medications Medication Instructions Recorded Confirmed Venlafaxine HCl [Effexor XR] 150 mg PO HS 12/21/19 01/18/20 Cholecalciferol [Vitamin D3 (25 10,000 units PO DAILY 01/02/20 01/18/20 Mcg = 1000 Iu)] Acetaminophen/Diphenhydramine 0.5 tab PO HS PRN 01/18/20 01/18/20 [Tylenol PM 500-25mg] Calcium Citrate 1,200 mg PO DAILY 01/18/20 01/18/20 ALLERGIES: Allergies Allergy/AdvReac Type Severity Reaction Status Date / Time No Known Allergies Allergy Verified 01/23/20 12:00 SOCIAL HISTORY: Past tobacco use. She has a Master's degree. FAMILY HISTORY: No family history of ulcerative colitis disease or Crohn's disease. Family history of morbid obesity. No lupus in the family. No reports of stomach or esophageal cancer. She has family history of breast cancer. Her mother had DVT. No lupus or multiple sclerosis in the family. REVIEW OF ORGAN SYSTEMS: CONSTITUTIONAL: At height of 5 feet 2.75 inches, her ideal body weight is 135 pounds. She comes in 205 pounds. Her body mass index is 36.7. She is 70 pounds overweight. HEENT: Denies any active troubles with vision or hearing. She has occasional food getting stuck in the throat. ENDOCRINE: No diabetes. No hypothyroidism. CARDIOVASCULAR: Past reports of palpitations or heart attacks or chest pain. RESPIRATORY: Has daytime somnolence. Has asthma. GASTROINTESTINAL: Denies any bright red blood per rectum. She has chronic diarrhea. No constipation. MUSCULOSKELETAL: She has lower back pain with arthritis with DJD. She has bilateral arthritis of the hips right greater left. Left knee arthritis is present. She has ankle arthritis. NEURO: No headaches. No seizure disorders. PSYCH: Has depression. No suicidal ideation. RHEUMATOLOGIC: No lupus. No rheumatoid arthritis. HEMATOLOGIC: No personal history of DVTs. She has reports of easy bruising. SKIN: No rash. No skin cancer. PHYSICAL EXAM: VITAL SIGNS: Height 5 foot 2.75 inches, weight 216 pounds. BMI 38.6 Vital Signs Temp 98.2 F 02/15/20 13:22 Pulse 107 H 02/15/20 13:22 Resp 16 02/15/20 13:22 BP 121/84 02/15/20 13:22 Pulse Ox Intake & Output 02/15/20 02/15/20 02/16/20 06:59 18:59 06:59 Weight 97.976 kg GENERAL: Well-developed in no acute distress. HEENT: No scleral icterus. Extraocular movements grossly intact. Hears conversational speech. No nasal drainage. NECK: Supple without lymphadenopathy. CHEST: Nonlabored respirations with equal bilateral excursions. CARDIOVASCULAR: Distal 2+ pulses. Tachycardic ABDOMEN: Obese, soft, nontender, nondistended. MUSCULOSKELETAL: No clubbing, cyanosis. NEURO: No focal or lateralizing signs. Cranial nerves 2 through 12 grossly within normal limits. PSYCH: Appropriate affect. Alert and oriented to person, place and time. SKIN: Good skin turgor. Well perfused. EGD REPORTS: FINDINGS: Squamocolumnar junction 37 cm from the incisors. Diaphragmatic hiatus at 37 cm. Hill grade 2 lower esophageal valve. LA grade A erosive esophagitis. No active duodenitis. Chronic gastritis Final Pathologic Diagnosis GASTRIC ANTRUM, BIOPSY: Chronic gastritis. Helicobacter organisms are not identified on routine H+E stained sections. LABS: Hgb A1c 6.2, Vitamin D is low, PTH is elevated ASSESSMENT: 1. Morbid obesity due to excess calories 2. Body mass index of 36.7, initial 3. Depressive disorder 4. Gastroesophageal reflux disease 5. Osteoarthritis of the hips. 6. Osteoarthritis of the knees. 7. Osteoarthritis of the lower back. 8. Dysphagia 9. Supraventricular tachycardia 10. Diabetes type 2, well controlled, new diagnosis 11. Secondary hyperparathyroidism 12. Vitamin D deficiency PLAN: 1. Recommend cardiac risk assessment for stress test for her tachycardia. 2. Start Vitamin D 5000 units daily. 3. She has new diagnosis of diabetes type 2 with Hgb A1c 6.2. She will benefit for gastrectomy procedures to avert worsening diabetes and its complications. 4. Continue medical supervised weight loss. 5. [facility] calculator also reviewed for risks and benefits between sleeve and gastric bypass. At this time she is looking into the gastric bypass. 6. Will need EKG Objective - Vital Signs Vital signs: Vital Signs Temp 98.2 F 02/15/20 13:22 Pulse 107 H 02/15/20 13:22 Resp 16 02/15/20 13:22 BP 121/84 02/15/20 13:22 Pulse Ox Intake & Output 02/14/20 02/15/20 02/15/20 18:59 06:59 18:59 Weight 97.976 kg
== END | disposition home or self-care (01) ==
LOC: BARWHC3 12:55
PROVIDERS: ATTEND Surgery Plastic and Reconstructive Surgery
DX: E66.01 Morbid (severe) obesity due to excess calories (principal); F32.9 Major depressive disorder, single episode, unspecified; K21.9 Gastro-esophageal reflux disease without esophagitis; M16.0 Bilateral primary osteoarthritis of hip; M17.0 Bilateral primary osteoarthritis of knee; I47.1 Supraventricular tachycardia; E11.9 Type 2 diabetes mellitus without complications; E21.1 Secondary hyperparathyroidism, not elsewhere classified; E55.9 Vitamin D deficiency, unspecified; Z68.36 Body mass index [BMI] 36.0-36.9, adult; Z83.49 Family history of other endocrine, nutritional and metabolic diseases; Z87.891 Personal history of nicotine dependence; Z98.890 Other specified postprocedural states; Z79.899 Other long term (current) drug therapy
CPT/HCPCS: 99211

== ENCOUNTER → 2020-04-09 | Outpatient (CLI) | payer BC ==
[2020-04-09 13:36] VITALS: BMI 38.9
== END | disposition home or self-care (01) ==
LOC: BARWHC3 08:48
PROVIDERS: ATTEND Surgery Plastic and Reconstructive Surgery
DX: E66.01 Morbid (severe) obesity due to excess calories (principal); Z68.38 Body mass index [BMI] 38.0-38.9, adult
CPT/HCPCS: 97804

== ENCOUNTER → 2020-04-18 | Outpatient (CLI) | payer BC ==
--- NOTE | 2020-04-18 14:12 | P.PN ---
Subjective Progress Note Date: 04/18/20 DATE OF SERVICE: 04/18/2020 CHIEF COMPLAINT: Morbid obesity HISTORY OF PRESENT ILLNESS: Emi Freitas is a 49-year-old female who comes in with lifelong morbid obesity. She reports reflux disease including osteoarthritis of the hips, knees, and lower back. She had completed cardiac workup for history of supraventricular tachycardia. Separately, she is looking into the gastric bypass. No reports of current abdominal pain. No reports of chronic diarrhea. At height of 5 feet 2.75 inches, her ideal body weight is 135 pounds. She comes in 216 pounds unchanged from 2 months ago. Her body mass index is 38.6. She is 81 pounds overweight. PAST MEDICAL HISTORY: 1. Morbid obesity due to excess calories 2. Body mass index of 36.7, initial 3. Depressive disorder 4. Gastroesophageal reflux disease 5. Osteoarthritis of the hips. 6. Osteoarthritis of the knees. 7. Osteoarthritis of the lower back. PAST SURGICAL HISTORY: 1. Diagnostic laparoscopy 2. Upper endoscopy HOME MEDICATIONS: Home Medications Medication Instructions Recorded Confirmed Venlafaxine HCl [Effexor XR] 150 mg PO HS 12/21/19 01/18/20 Cholecalciferol [Vitamin D3 (25 10,000 units PO DAILY 01/02/20 01/18/20 Mcg = 1000 Iu)] Acetaminophen/Diphenhydramine 0.5 tab PO HS PRN 01/18/20 01/18/20 [Tylenol PM 500-25mg] Calcium Citrate 1,200 mg PO DAILY 01/18/20 01/18/20 ALLERGIES: Allergies Allergy/AdvReac Type Severity Reaction Status Date / Time No Known Allergies Allergy Verified 01/23/20 12:00 SOCIAL HISTORY: Past tobacco use. She has a Master's degree. FAMILY HISTORY: No family history of ulcerative colitis disease or Crohn's disease. Family history of morbid obesity. No lupus in the family. No reports of stomach or esophageal cancer. She has family history of breast cancer. Her mother had DVT. No lupus or multiple sclerosis in the family. REVIEW OF ORGAN SYSTEMS: CONSTITUTIONAL: At height of 5 feet 2.75 inches, her ideal body weight is 135 pounds. Highest 216 pounds, BMI 38.6. She is 81 pounds overweight. HEENT: Denies any active troubles with vision or hearing. She has occasional food getting stuck in the throat. ENDOCRINE: No diabetes. No hypothyroidism. CARDIOVASCULAR: Past reports of palpitations or heart attacks or chest pain. Cardiac workup performed. RESPIRATORY: Has daytime somnolence. Has asthma. GASTROINTESTINAL: Denies any bright red blood per rectum. She has chronic diarrhea. No constipation. MUSCULOSKELETAL: She has lower back pain with arthritis with DJD. She has bilateral arthritis of the hips right greater left. Left knee arthritis is present. She has ankle arthritis. NEURO: No headaches. No seizure disorders. PSYCH: Has depression. No suicidal ideation. RHEUMATOLOGIC: No lupus. No rheumatoid arthritis. HEMATOLOGIC: No personal history of DVTs. She has reports of easy bruising. SKIN: No rash. No skin cancer. PHYSICAL EXAM: VITAL SIGNS: Height 5 foot 2.75 inches, weight 216 pounds. BMI 38.6 GENERAL: Well-developed in no acute distress. HEENT: No scleral icterus. Extraocular movements grossly intact. Hears conversational speech. No nasal drainage. NECK: Supple without lymphadenopathy. CHEST: Nonlabored respirations with equal bilateral excursions. CARDIOVASCULAR: Distal 2+ pulses. Tachycardic ABDOMEN: Obese, soft, nontender, nondistended. MUSCULOSKELETAL: No clubbing, cyanosis. NEURO: No focal or lateralizing signs. Cranial nerves 2 through 12 grossly within normal limits. PSYCH: Appropriate affect. Alert and oriented to person, place and time. SKIN: Good skin turgor. Well perfused. ASSESSMENT: 1. Morbid obesity due to excess calories 2. Body mass index of 38.6 3. Depressive disorder 4. Gastroesophageal reflux disease 5. Osteoarthritis of the hips. 6. Osteoarthritis of the knees. 7. Osteoarthritis of the lower back. 8. Dysphagia 9. Supraventricular tachycardia 10. Diabetes type 2, well controlled, new diagnosis 11. Secondary hyperparathyroidism 12. Vitamin D deficiency PLAN: 1. Bariatric options between a sleeve, band and a Reanna-en-Y gastric bypass were reviewed in detail. The patient elected for a gastric bypass. Additionally, for findings of adhesions, contraindication to gastric bypass were described. Robotic assisted approach described. 2. The [place] [facility] Data was also reviewed with benefits and risks as described. 3. An 8 page second-generation bariatric consent form was reviewed in detail including potential of bleeding, infection, leaks, adequate weight loss, nutritional deficiencies which the patient demonstrated understanding of the risks. 4. A 2 week high-protein low caloric 800 kcal diet described to address hepa tomegaly. 5. Preoperative labs including complete metabolic panel and CBC with type and screen recommended. 6. DVT prophylaxis per [place] [facility]. 7. Antibiotic prophylaxis. 8. Inpatient hospitalization anticipated for more than 2 nights. 9. All questions and concerns were addressed with the patient. 10. She is elevated risk for perioperateive complications due to persistent supraventricular tachycardia Objective - Labs CBC & Chem 7: 04/18/20 14:29 04/18/20 14:29
[2020-04-18 14:25] VITALS: BP 122/86; PULSE 82; RESP 16; TEMP 98.7; BMI 38.5
[2020-04-18 15:04] LABS: Basophils # (A) 0.1 k/uL (0-0.2); Basophils % (A) 1 %; Eosinophils # (A) 0.2 k/uL (0-0.7); Eosinophils % (A) 2 %; HCT 44.9 % (34.0-46.0); HGB 14.8 gm/dL (11.4-16.0); Lymphocytes # (A) 2.2 k/uL (1.0-4.8); Lymphocytes % (A) 28 %; MCH 30.7 pg (25.0-35.0); MCHC 32.9 g/dL (31.0-37.0); MCV 93.2 fL (80.0-100.0); Mean Platelet Volume 6.9; Monocytes # (A) 0.4 k/uL (0-1.0); Monocytes % (A) 5 %; Neutrophils # (A) 4.9 k/uL (1.3-7.7); Neutrophils % (A) 62 %; Platelet Count 320 k/uL (150-450); RBC 4.82 m/uL (3.80-5.40); RDW 12.4 % (11.5-15.5); WBC 7.9 k/uL (3.8-10.6)
[2020-04-19 04:40] LABS: African American GFR (CKD) 101.8 (60.0-200.0); Albumin 4.6 g/dL (3.80-4.90); Anion Gap 11.8 mmol/L (4.00-12.00); BUN/Creat Ratio 17.5 Ratio (12.00-20.00); Calcium 9.8 mg/dL (8.7-10.3); Carbon Dioxide 24.2 mmol/L (21.6-31.8); Globulin 2.3 g/dL (1.6-3.3); Non-African American GFR(CKD) 87.8 (60.0-200.0); Potassium 4.3 mmol/L (3.5-5.5); Total Bilirubin 0.3 mg/dL (0.3-1.2); Total Protein 6.9 g/dL (6.2-8.2)
== END | disposition home or self-care (01) ==
LOC: BARWHC3 13:30
PROVIDERS: ATTEND Surgery Plastic and Reconstructive Surgery
DX: E66.01 Morbid (severe) obesity due to excess calories (principal); Z68.38 Body mass index [BMI] 38.0-38.9, adult; F32.9 Major depressive disorder, single episode, unspecified; K21.9 Gastro-esophageal reflux disease without esophagitis; M16.10 Unilateral primary osteoarthritis, unspecified hip; M17.10 Unilateral primary osteoarthritis, unspecified knee; M47.816 Spondylosis without myelopathy or radiculopathy, lumbar region; R13.10 Dysphagia, unspecified; I47.1 Supraventricular tachycardia; E11.9 Type 2 diabetes mellitus without complications; N25.81 Secondary hyperparathyroidism of renal origin; E55.9 Vitamin D deficiency, unspecified; Z87.891 Personal history of nicotine dependence; Z79.899 Other long term (current) drug therapy; Z01.818 Encounter for other preprocedural examination
CPT/HCPCS: 36415; 80053; 85025; 99211

== ENCOUNTER 2020-04-30 07:38 | Inpatient (IN) | payer BC ==
--- NOTE | 2020-04-30 06:20 | P.GSHP ---
History of Present Illness H&P Date: 04/30/20 CHIEF COMPLAINT: Morbid obesity HISTORY OF PRESENT ILLNESS: Emi Freitas is a 49-year-old female who comes in with lifelong morbid obesity. She reports reflux disease including osteoarthritis of the hips, knees, and lower back. She is looking into the gastric bypass. At height of 5 feet 2 inches, her ideal body weight is 135 pounds. She comes in 216 pounds. She has gained 10 pounds in 2 months. Her body mass index is 36.7 up to 39.5 She is 81 pounds overweight. PAST MEDICAL HISTORY: 1. Morbid obesity due to excess calories 2. Body mass index of 36.7, initial 3. Depressive disorder 4. Gastroesophageal reflux disease 5. Osteoarthritis of the hips. 6. Osteoarthritis of the knees. 7. Osteoarthritis of the lower back. PAST SURGICAL HISTORY: 1. Diagnostic laparoscopy 2. Upper endoscopy HOME MEDICATIONS: Home Medications Medication Instructions Recorded Confirmed Venlafaxine HCl [Effexor XR] 150 mg PO HS 12/21/19 01/18/20 Cholecalciferol [Vitamin D3 (25 10,000 units PO DAILY 01/02/20 01/18/20 Mcg = 1000 Iu)] Acetaminophen/Diphenhydramine 0.5 tab PO HS PRN 01/18/20 01/18/20 [Tylenol PM 500-25mg] Calcium Citrate 1,200 mg PO DAILY 01/18/20 01/18/20 ALLERGIES: Allergies Allergy/AdvReac Type Severity Reaction Status Date / Time No Known Allergies Allergy Verified 01/23/20 12:00 SOCIAL HISTORY: Past tobacco use. She has a Master's degree. FAMILY HISTORY: No family history of ulcerative colitis disease or Crohn's disease. Family history of morbid obesity. No lupus in the family. No reports of stomach or esophageal cancer. She has family history of breast cancer. Her mother had DVT. No lupus or multiple sclerosis in the family. REVIEW OF ORGAN SYSTEMS: CONSTITUTIONAL: At height of 5 feet 2.75 inches, her ideal body weight is 135 pounds. Highest 216 pounds. HEENT: Denies any active troubles with vision or hearing. She has occasional food getting stuck in the throat. ENDOCRINE: No diabetes. No hypothyroidism. CARDIOVASCULAR: Past reports of palpitations or heart attacks or chest pain. RESPIRATORY: Has daytime somnolence. Has asthma. GASTROINTESTINAL: Denies any bright red blood per rectum. She has chronic diarrhea. No constipation. MUSCULOSKELETAL: She has lower back pain with arthritis with DJD. She has bilateral arthritis of the hips right greater left. Left knee arthritis is present. She has ankle arthritis. NEURO: No headaches. No seizure disorders. PSYCH: Has depression. No suicidal ideation. RHEUMATOLOGIC: No lupus. No rheumatoid arthritis. HEMATOLOGIC: No personal history of DVTs. She has reports of easy bruising. SKIN: No rash. No skin cancer. PHYSICAL EXAM: VITAL SIGNS: Height 5 foot 2 inches, weight 216 pounds. BMI 39.5 GENERAL: Well-developed in no acute distress. HEENT: No scleral icterus. Extraocular movements grossly intact. Hears conversational speech. No nasal drainage. NECK: Supple without lymphadenopathy. CHEST: Nonlabored respirations with equal bilateral excursions. CARDIOVASCULAR: Distal 2+ pulses. ABDOMEN: Obese, soft, nontender, nondistended. MUSCULOSKELETAL: No clubbing, cyanosis. NEURO: No focal or lateralizing signs. Cranial nerves 2 through 12 grossly within normal limits. PSYCH: Appropriate affect. Alert and oriented to person, place and time. SKIN: Good skin turgor. Well perfused. EGD REPORTS: FINDINGS: Squamocolumnar junction 37 cm from the incisors. Diaphragmatic hiatus at 37 cm. Hill grade 2 lower esophageal valve. LA grade A erosive esophagitis. No active duodenitis. Chronic gastritis Final Pathologic Diagnosis GASTRIC ANTRUM, BIOPSY: Chronic gastritis. Helicobacter organisms are not identified on routine H+E stained sections. LABS: Hgb A1c 6.2, Vitamin D is low, PTH is elevated ASSESSMENT: 1. Morbid obesity due to excess calories 2. Body mass index of 39.5 3. Depressive disorder 4. Gastroesophageal reflux disease 5. Osteoarthritis of the hips. 6. Osteoarthritis of the knees. 7. Osteoarthritis of the lower back. 8. Dysphagia 9. Supraventricular tachycardia 10. Diabetes type 2, well controlled, new diagnosis 11. Secondary hyperparathyroidism 12. Vitamin D deficiency PLAN: 1. Bariatric options between a sleeve, band and a Reanna-en-Y gastric bypass were reviewed in detail. The patient elected for a gastric bypass. Robotic assisted approach described. 2. The [place] [facility] Data was also reviewed with benefits and risks as described. 3. An 8 page second-generation bariatric consent form was reviewed in detail including potential of bleeding, infection, leaks, adequate weight loss, nutritional deficiencies which the patient demonstrated understanding of the risks. 4. A 2 week high-protein low caloric 800 kcal diet described to address hepatomegaly. 5. Preoperative labs including complete metabolic panel and CBC with type and screen recommended. 6. DVT prophylaxis per [place] [facility]. 7. Antibiotic prophylaxis. 8. Inpatient hospitalization anticipated for more than 2 nights. 9. All questions and concerns were addressed with the patient. Past Medical History Past Medical History: Asthma, GERD/Reflux, Osteoarthritis (OA) Additional Past Medical History / Comment(s): HX SVT , EXERCISE INDUCED ASTHMA, CONSTIPATION / DIARRHEA, ARTHRITIS IN BACK & KNEES., BORDERLINE DIABETES, STATES CALCIUM CITRATE TAKEN FOR HER THYROID. History of Any Multi-Drug Resistant Organisms: None Reported Past Surgical History: Orthopedic Surgery, Uterine Ablation Additional Past Surgical History / Comment(s): leep surgery, acl repair. Past Anesthesia/Blood Transfusion Reactions: No Reported Reaction, Family History of Problems w/ Anesthesia Additional Past Anesthesia/Blood Transfusion Reaction / Comment(s): mom has difficulty waking up Past Psychological History: Anxiety, Depression Additional Psychological History / Comment(s): . Smoking Status: Former smoker Past Alcohol Use History: None Reported Additional Past Alcohol Use History / Comment(s): QUIT SMOKING March., SMOKED 1 TO [facility] ,. SMOKED ON AND OFF FOR 12 YEARS. Past Drug Use History: None Reported - Past Family History Mother Family Medical History: Cancer Additional Family Medical History / Comment(s): BREAST CANCER Medications and Allergies Home Medications Medication Instructions Recorded Confirmed Type Venlafaxine HCl [Effexor XR] 150 mg PO HS 12/21/19 04/25/20 History Cholecalciferol [Vitamin D3 (25 10,000 units PO DAILY 01/02/20 04/25/20 History Mcg = 1000 Iu)] Acetaminophen/Diphenhydramine 0.5 tab PO HS PRN 01/18/20 04/25/20 History [Tylenol PM 500-25mg] Calcium Citrate 1,200 mg PO DAILY 01/18/20 04/25/20 History Womens Vitamin Patch 1 dose TOPICAL DIRECTED 04/25/20 History Allergies Allergy/AdvReac Type Severity Reaction Status Date / Time No Known Allergies Allergy Verified 04/25/20 14:21
[~2020-04-30 07:38] MED LIST changes: +ACETAMINOPHEN IV (For NPO) 1,000 MG in EMPTY BAG 1 BAG IVPB ONE; +CHLORHEXIDINE GLUCONATE 15 ML CUP MUCOUS MEM ONE; +DEXAMETHASONE SOD PHOSPHATE 10 MG/ML 1 ML VIAL IV ONE; +ENOXAPARIN 40 MG/0.4 ML SYRINGE SQ STA; +GLYCOPYRROLATE 0.2 MG/ML 2 ML VIAL ONE; +HYDROmorphone (PF) 1 MG/ML ONE; -LACTATED RINGERS 1,000 ML IV SCH; -LIDOCAINE 1% (10MG/ML) FOR IV START INTRADERMA PRN; +LIDOCAINE 1% INJ 10MG/ML (20 ML MDV) ONE; +MIDAZOLAM 2 MG/2 ML VIAL IV PRN; +MIDAZOLAM 2 MG/2 ML VIAL ONE; +NEOSTIGMINE 1 MG/ML 10 ML VIAL ONE; +ONDANSETRON 4 MG/2 ML VIAL IVP ONE; +PANTOPRAZOLE 40 MG/10 ML VIAL IV STA; +PHENYLEPHRINE-0.9% NACL SYG 1 MG/10 ML SYRINGE ONE; +PROPOFOL 10 MG/ML 20 ML VIAL IV ONE; +ROCURONIUM BROMIDE 10 MG/ML 5 ML VIAL IV ONE; +SUCCINYLCHOLINE CHLORIDE 100 MG/5 ML SYR IV ONE; +fentaNYL (PF) 50 MCG/ML 2 ML AMP ONE
[2020-04-30] MEDS ORDERED: LIDOCAINE 1% (10MG/ML) FOR IV START INTRADERMA ONE (09:00)
[2020-04-30] MEDS: LACTATED RINGERS 1,000 ML IV SCH (09:00)
[2020-04-30] MEDS ORDERED: SCOPOLAMINE 1.5MG/72HR PATCH TRANSDERM ONE (09:06)
[2020-04-30 09:17] LABS: Glucose,Whole Blood 100 mg/dL (75-99)
[2020-04-30] MEDS ORDERED: MIDAZOLAM 2 MG/2 ML VIAL IVP ONE (10:09)
[2020-04-30] MEDS ORDERED: BUPIVACAIN-EPI 0.25%-1:200,000 30 ML VIAL SQ ONE (12:07)
[2020-04-30] MEDS ORDERED: LACTATED RINGERS 1,000 ML IV ONE ×3 (12:21→15:53)
[2020-04-30] MEDS ORDERED: NALOXONE 0.4 MG/ML 1 ML VIAL IV PRN (15:13)
[2020-04-30] MEDS ORDERED: diphenhydrAMINE 50 MG/ML 1 ML VIAL IVP PRN (15:13)
--- NOTE | 2020-04-30 15:28 | P.OP ---
Date of Procedure: 04/30/20 Description of Procedure: SURGEON: MATEUS VITAL MD PREOPERATIVE DIAGNOSES: 1. Morbid obesity due to excess calories 2. Body mass index of 39.5 3. Depressive disorder 4. Gastroesophageal reflux disease 5. Osteoarthritis of the hips. 6. Osteoarthritis of the knees. 7. Osteoarthritis of the lower back. 8. Dysphagia 9. Supraventricular tachycardia 10. Diabetes type 2, well controlled, new diagnosis 11. Secondary hyperparathyroidism 12. Vitamin D deficiency POSTOPERATIVE DIAGNOSES: 1. Morbid obesity due to excess calories 2. Body mass index of 39.5 3. Depressive disorder 4. Gastroesophageal reflux disease 5. Osteoarthritis of the hips. 6. Osteoarthritis of the knees. 7. Osteoarthritis of the lower back. 8. Dysphagia 9. Supraventricular tachycardia 10. Diabetes type 2, well controlled, new diagnosis 11. Secondary hyperparathyroidism 12. Vitamin D deficiency OPERATION: 1. Robotic assisted da Shirlene Xi laparoscopic Reanna-en-Y gastric bypass, 100 cm antecolic antegastric Reanna limb, with 25 mm EEA. 2. Intraoperative esophagogastrojejunoscopy. ANESTHESIA: GETA and local ESTIMATED BLOOD LOSS: 30 mL SPECIMENS REMOVED: None. COMPLICATIONS: NONE. INDICATIONS: Emi Freitas is a 49-year-old female who comes in with lifelong morbid obesity. She reports reflux disease including osteoarthritis of the hips, knees, and lower back. She also developed diabetes type 2 [id number]. She is looking into the gastric bypass. At height of 5 feet 2 inches, her ideal body weight is 135 pounds. She comes in 216 pounds. Her body mass index is 39.5 She is 81 pounds overweight. A second-generation bariatric consent form was described in detail including the possibility of protein malnutrition, leaks, gastrojejunal stricture, venous thrombosis, need for further surgery for which she demonstrated understanding. Benefits and risks of the procedure were described at length. Informed consent was obtained. DESCRIPTION: The patient was brought into the operating room theater. She was placed supine. She had received Lovenox subcutaneously for DVT prophylaxis. Additionally she Peridex oral solution as an oral decontaminant was placed per anesthesia. After general induction, the abdomen was prepped and draped in standard sterile fashion. Ioban draping was placed along the abdomen. Moses catheter was placed A robotic da Shirlene Xi system was prepped and primed. Incisions were proposed at 15 cm from the xiphoid. Proposed port sites were mar ked with indelible marker along the anterior axillary line bilaterally, mid clavicular line bilaterally with each port marked 10 cm from each other. The robotic stapler port was marked for the right midclavicular line including along the left midclavicular line. A 5 mm 0 degrees laparoscopic trocar entry was performed along the left upper quadrant. The abdomen was insufflated to 15 mmHg pressure, which she tolerated well. Diagnostic laparoscopy demonstrated no injury to bowel, viscera, or mesentery. The liver was unremarkable with sharp edges consistent with her 2 week diet. No hiatus hernia was identified. The abdominal cavity was rather small increasing complexity of the case as her xiphoid to umbilicus was 15 cm in length. An 8 mm camera port was placed left lateral to the umbilicus at the epigastrium, 15 cm distal to the xiphoid. Next, 12-mm robot stapler port was placed along the right mid abdomen. An 12 mm port was exchanged along the left upper quadrant. An 8 mm port was placed on the left lateral abdominal wall under direct visualization Please note that the ports were placed 18 to 20 cm away from the target anatomy of the stomach. Care was taken to check that each robotic arm was safely away from collision with the bed or the patient. At the epigastrium, a medium sized Elias liver retractor was placed under direct visualization with the Iron Cut Off Machine Operator placed under the right shoulder of the patient. The patient was repositioned in reverse Trendelenburg position at 21-degrees after lowering the bed. The robot was docked over the patient. Using grasper for arm 3, a grasper for arm 1, including vessel sealer for arm 4, the robotic system was docked and primed as described. Additional instruments instruments were interchanged by the surgery assistant hook cautery, needle stage driver, and stapler. I had sat at the console. Next, the transverse mesocolon was very redundant reaching into the pelvis and reflected into the upper abdomen preparing for the jejunojejunostomy portion of the case. The ligament of Treitz was identified and measured 60 cm antegrade and marked using 3-0 Silk. The jejunum was divided at the 60 cm point using 60-mm white loads above the suture measurement. The biliopancreatic limb was held in place. The Reanna limb was measured 100 cm in an antegrade fashion to avoid tension along the proposed gastrojejunal anastomosis. At 100 cm along the anti-mesenteric border of the Reanna limb, a jejunojejunostomy was proposed whereby enterotomies were created along the biliopancreatic limb including the Reanna limb using a Bovie cautery. A stay suture of 3-0 Slik was placed to align and create the anastomosis. The enterotomies along the anti-mesenteric borders were created followed by unidirectional fire from the patient's right side using 60 mm blue loads [employer] robotic stapler. The jejunojejunostomy was found to be hemostatic. The enterotomy was closed after horizontal mattress stitch of 3-0 silk used to elevate the enterotomy followed by closure with the robotic stapler blue load. The jejunal limb was temporarily tacked along the left upper quadrant. Attention was now brought to the creation of the gastrojejunostomy. Along the lesser curvature of the stomach between the second and third gastric vessel, dissection was made along the retrogastric space to allow first firing of the robotic staple. Green loads of 60 mm staplers were used to divide the stomach to create the gastric pouch. The patient was then prepared for placement of a Orvil. The patient was Mallampati 2. A 25-mm Orvil was selected for placement by the nurse rivet sorter. The Orvil tubing was placed anterior to the staple line of the gastric pouch and brought out through the left inferior lateral port. I re-scrubbed into the case. The robotic arms were temporarily undocked. The Orvil was then carefully and successfully navigated with the help of the nurse rivet sorter into the gastric pouch. The sutures were identified and divided. The tubing was from the 25 mm anvil. As the Orvil had been placed, the blind jejunal limb was brought proximally into the upper abdomen. No torsion was found upon the Reanna limb. No tension was identified as the limb was brought along the upper abdomen. The blind jejunal limb was previously opened using hook cautery. The 25-mm EEA stapler was brought through the left anterior lateral port site from the left side. The EEA stapler was brought through the open jejunal limb and its needle was deployed at the antimesenteric border where the anvil were mated for kailyn roximately 1 minute upon firing. The stapler was removed after irrigating the shaft of the instrument with warm normal saline. Donuts were found to be thick, intact and on both sides. The da Shirlene Xi robot arms were then re-docked. I sat at the console. The open jejunal limb defect was closed using 60 mm blue loads after releasing any tension from the blind jejunal limb. Care was taken to avoid any long blind limb to avoid candycane syndrome. Reinforcement sutures were placed along the gastrojejunal anastomosis and placed along the 12:00, 9:00 and 3 o'clock position using 3-0 Vicryl. The Johnson and jejunojejunostomy mesenteric defects were closed using 2-0 V LOC. I then went to the head of the bed to perform the esophagogastrojejunoscopy and a leak test. An Olympus gastroscope was passed along the posterior oropharynx which was unremarkable for any injury to the vocal cords. The scope was passed down to the proximal portion of the pouch, whereby no active bleeding was encountered. Excellent visualization of the gastrojejunostomy anastomosis, including the Reanna limb was encountered with endoscopic image obtained. The anastomosis was found to be patent. The gastrointestinal tract was desufflated. No evidence of intraoperative leak was encountered as the gastric pouch and anastomosis were submerged under normal saline solution. The robot was then undocked. I then went back to the bedside of the patient, whereby with coordinated effort of the surgery assistant, irrigation was aspirated from the upper abdominal cavity. Tisseel was placed circumferentially over the anastomosis of the gastrojejunostomy. The fascial defect of the EEA stapler was closed using Clemente Valverde and 0 Vicryl. All instruments and pneumoperitoneum were evacuated from the abdominal cavity. The port correlating with the EEA stapler device was cleansed with normal saline solution and hydrogen peroxide. The rest of incisions were reapproximated using 4-0 Monocryl in an interrupted subcuticular fashion. Local anesthetic was infiltrated along the skin for postop analgesia. Liquid glue was applied to the skin. OptiFoam dressing was placed along the EEA stapler site. At the end of the procedure, needle, sponge and instrument count had been verified correct by the certified surgical tech/first assistant. The patient had tolerated the procedure well and was extubated and taken to the postanesthesia unit in stable condition. Intraoperative findings were described to the patient's family who were very pleased with the level of care. Operative Findings: 1. Biliopancreatic limb 60 cm 2. Bypass performed using 100 cm reanna limb secondary to avoid increased tension at 150 cm. 3. Degroot defect and jejunojejunostomy defects closed using 2-0 V LOC 4. Leak test negative with gastrojejunal anastomosis patent and hemostatic. 5. Reinforcement sutures were placed along the gastrojejunal anastomosis at 9:00,12:00 and 3:00 6. [place] liver edge consistent with two-week protein diet 7. Thoracic length 15 cm 8. Console time 108 minutes
[2020-04-30] MEDS ORDERED: ONDANSETRON 4 MG/2 ML VIAL IVP ONE (15:47)
[2020-04-30] MEDS: HYDROmorphone 0.5 MG/0.5 ML SYRINGE IVP PRN ×2 (15:50→16:15)
[2020-04-30] MEDS ORDERED: KETOROLAC 30 MG/ML 1 ML VIAL IVP ONE (15:59)
--- NOTE | 2020-04-30 17:33 | P.PN ---
Progress Note - Text Progress Note Date: 04/30/20 Patient doing extremely well following surgery. She denies any dyspnea. She feels well. Pain is controlled. Likely discharge home tomorrow with follow-up in the bariatric center in 2 to 3 days.
[2020-04-30] MEDS: 0.9% NACL WITH KCL 20 MEQ/L 1,000 ML IV SCH (18:26)
[2020-04-30] MEDS: SIMETHICONE 40 MG/0.6 ML DROPS 2,000 MG/30 ML BOTTLE PO SCH ×2 (18:26→23:27)
[2020-04-30] MEDS: ONDANSETRON 4 MG/2 ML VIAL IVP SCH ×2 (18:26→23:27)
[2020-04-30] MEDS: HYOSCYAMINE ORAL DROPS 1.875 MG/15 ML BOTTLE PO SCH ×2 (18:27→23:27)
[2020-04-30] MEDS: ALBUTEROL NEBULIZED 2.5 MG/3 ML INHALATION SCH ×2 (19:50)
[2020-04-30] MEDS: HYDROmorphone 1 MG/ML 1 ML SYRINGE IVP PRN (20:17)
[2020-04-30] MEDS: DEXAMETHASONE SOD PHOSPHATE 4 MG/ML 1 ML VIAL IV SCH (23:27)
[2020-05-01] MEDS: 0.9% NACL WITH KCL 20 MEQ/L 1,000 ML IV SCH ×3 (01:29→07:43)
[2020-05-01] MEDS: LACTATED RINGERS 1,000 ML IV SCH (05:07)
[2020-05-01] MEDS: DEXAMETHASONE SOD PHOSPHATE 4 MG/ML 1 ML VIAL IV SCH ×2 (05:18→12:39)
[2020-05-01] MEDS: HYOSCYAMINE ORAL DROPS 1.875 MG/15 ML BOTTLE PO SCH ×2 (05:19→12:38)
[2020-05-01] MEDS: ONDANSETRON 4 MG/2 ML VIAL IVP SCH ×2 (05:19→12:39)
[2020-05-01] MEDS: SIMETHICONE 40 MG/0.6 ML DROPS 2,000 MG/30 ML BOTTLE PO SCH ×2 (05:19→12:38)
[2020-05-01] MEDS: HYDROmorphone 1 MG/ML 1 ML SYRINGE IVP PRN (06:08)
[2020-05-01 07:58] VITALS: BP 104/68; RESP 18; TEMP 98.4
[2020-05-01 08:19] LABS: Basophils % (A) 0 %; Eosinophils # (A) 0.1 k/uL (0-0.7); Eosinophils % (A) 1 %; HCT 36.5 % (34.0-46.0); HGB 12.1 gm/dL (11.4-16.0); Lymphocytes # (A) 0.6 k/uL (1.0-4.8); Lymphocytes % (A) 4 %; MCH 30.8 pg (25.0-35.0); MCV 93.4 fL (80.0-100.0); Mean Platelet Volume 7.4; Monocytes # (A) 0.3 k/uL (0-1.0); Monocytes % (A) 2 %; Neutrophils # (A) 11.9 k/uL (1.3-7.7); Neutrophils % (A) 92 %; Platelet Count 237 k/uL (150-450); RBC 3.91 m/uL (3.80-5.40); RDW 12.8 % (11.5-15.5); WBC 12.9 k/uL (3.8-10.6)
[2020-05-01] MEDS: ALBUTEROL NEBULIZED 2.5 MG/3 ML INHALATION SCH ×3 (08:38→15:56)
[2020-05-01 08:43] VITALS: PULSE 80
[2020-05-01 08:52] LABS: African American GFR (CKD) >90 (>60 ml/min/1.73 sqM); Anion Gap 7 mmol/L; Blood Urea Nitrogen 9 mg/dL (7-17); Calcium 8.1 mg/dL (8.4-10.2); Carbon Dioxide 23 mmol/L (22-30); Chloride 108 mmol/L (98-107); Magnesium 1.8 mg/dL (1.6-2.3); Non-African American GFR(CKD) >90 (>60 ml/min/1.73 sqM); Potassium 4.6 mmol/L (3.5-5.1); Sodium 138 mmol/L (137-145)
[2020-05-01] MEDS ORDERED: ENOXAPARIN 40 MG/0.4 ML SYRINGE SQ SCH (09:00)
[2020-05-01] MEDS: PANTOPRAZOLE 40 MG/10 ML VIAL IV SCH (09:05)
[2020-05-01] MEDS ORDERED: ACETAMINOPHEN ORAL SUSP 160 MG/5 ML CUP PO PRN (10:46)
--- NOTE | 2020-05-01 10:46 | P.DS ---
Providers Date of admission: 04/30/20 07:38 Expected date of discharge: 05/01/20 Attending physician: Flora Ardon Primary care physician: [facility] Course: 49-year-old female who underwent robotic-assisted laparoscopic Reanna-en-Y gastric bypass with Dr. Ardon on 04/30/2020. Patient is doing well postoperatively without any immediate complications. She is tolerating liquid diet without nausea or vomiting. Pain is controlled on oral medications. Vital signs are stable. She is stable for discharge home today. Please see EMR for further hospital course details. Discharge Diagnosis 1. Morbid obesity due to excess calories 2. Body mass index of 39.5 3. Depressive disorder 4. Gastroesophageal reflux disease 5. Osteoarthritis of the hips. 6. Osteoarthritis of the knees. 7. Osteoarthritis of the lower back. 8. Dysphagia 9. Supraventricular tachycardia 10. Diabetes type 2, well controlled, new diagnosis 11. Secondary hyperparathyroidism 12. Vitamin D deficiency Nurse practitioner note has been reviewed by physician. Signing provider agrees with the documented findings, assessment, and plan of care. Plan - Discharge Summary Discharge Rx Participant: Yes New Discharge Prescriptions: New Acetaminophen Oral Susp [Tylenol] 650 mg PO Q4H PRN #500 ml PRN Reason: Pain Bisacodyl [Dulcolax] 5 mg PO DAILY PRN #10 tablet. PRN Reason: Constipation Simethicone 40 mg/0.6 ml Drops [Mylicon Drops] 40 mg PO PCHS PRN #30 ml PRN Reason: Gas Omeprazole [PriLOSEC] 40 mg PO DAILY #30 capsule. Ondansetron Odt [Zofran Odt] 4 mg PO Q8HR PRN #9 tab PRN Reason: Nausea Continue Venlafaxine HCl [Effexor XR] 150 mg PO HS Discontinued Cholecalciferol [Vitamin D3 (25 Mcg = 1000 Iu)] 10,000 units PO DAILY Calcium Citrate 1,200 mg PO DAILY Acetaminophen/Diphenhydramine [Tylenol PM 500-25mg] 0.5 tab PO HS PRN PRN Reason: Pain Womens Vitamin Patch 1 dose TOPICAL DIRECTED Discharge Medication List Venlafaxine HCl [Effexor XR] 150 mg PO HS 12/21/19 [History] Acetaminophen Oral Susp [Tylenol] 650 mg PO Q4H PRN #500 ml 05/01/20 [Rx] Bisacodyl [Dulcolax] 5 mg PO DAILY PRN #10 tablet. 05/01/20 [Rx] Omeprazole [PriLOSEC] 40 mg PO DAILY #30 capsule. 05/01/20 [Rx] Ondansetron Odt [Zofran Odt] 4 mg PO Q8HR PRN #9 tab 05/01/20 [Rx] Simethicone 40 mg/0.6 ml Drops [Mylicon Drops] 40 mg PO PCHS PRN #30 ml 05/01/20 [Rx] [place] [facility]s[place] 1:00 pm Activity/Diet/Wound Care/Special Instructions: Tylenol as needed for pain No lifting over 4 pounds You may shower. No soaking or tub baths Very light activity until you are reevaluated at your follow up appointment with your surgeon Continue clear liquid diet per bariatric schedule No straws or carbonated beverages Crush or open all medications greater than the size of a tic-tac
[2020-05-01] MEDS ORDERED: Phosphorus Replacement Protoco 1 EACH MISC MISCELLANE PRN (10:47)
[2020-05-01 11:27] VITALS: BMI 38.7
[2020-05-01] MEDS: SODIUM PHOSPHATE 10 MMOL in SODIUM CHLORIDE 0.9% 250 ML IVPB SCH ×2 (12:38→14:16)
[2020-05-02] MEDS ORDERED: BISACODYL 5 MG TABLET.DR PO PRN (08:00)
== END 2020-05-01 16:37 | disposition home or self-care (01) | DRG 621 ==
LOC: 2ORMAIN 07:38 → 4SSUR 14:43
PROVIDERS: ADMIT Surgery Plastic and Reconstructive Surgery; ATTEND Surgery Plastic and Reconstructive Surgery
PROC: 8E0W4CZ Robotic Assisted Procedure of Trunk Region, Percutaneous Endoscopic Approach (ICD-10-PCS; 2020-04-30)
PROC: 0DJ08ZZ Inspection of Upper Intestinal Tract, Via Natural or Artificial Opening Endoscopic (ICD-10-PCS; 2020-04-30)
PROC: 0D164ZA Bypass Stomach to Jejunum, Percutaneous Endoscopic Approach (ICD-10-PCS; principal; 2020-04-30 10:15)
DX: E66.01 Morbid (severe) obesity due to excess calories (principal); E21.1 Secondary hyperparathyroidism, not elsewhere classified; Z68.39 Body mass index [BMI] 39.0-39.9, adult; E11.9 Type 2 diabetes mellitus without complications; K21.9 Gastro-esophageal reflux disease without esophagitis; F32.9 Major depressive disorder, single episode, unspecified; M15.9 Polyosteoarthritis, unspecified; R13.10 Dysphagia, unspecified; J45.909 Unspecified asthma, uncomplicated; K29.50 Unspecified chronic gastritis without bleeding; F41.9 Anxiety disorder, unspecified; K59.00 Constipation, unspecified; E55.9 Vitamin D deficiency, unspecified; Z79.899 Other long term (current) drug therapy; Z80.3 Family history of malignant neoplasm of breast; Z86.79 Personal history of other diseases of the circulatory system; Z98.890 Other specified postprocedural states; Z87.891 Personal history of nicotine dependence
CPT/HCPCS: 80051; 81025; 82310; 82565; 83735; 84100; 84520; 85025; 86850; 86900; 86901; 94640; 94760; 94762

== ENCOUNTER → 2020-05-03 | Outpatient (CLI) | payer BC ==
[2020-05-03 13:52] VITALS: BP 135/86; PULSE 84; RESP 16; TEMP 98.4
[2020-05-03 14:01] VITALS: BMI 39.3
--- NOTE | 2020-05-03 15:50 | P.PN ---
Subjective Progress Note Date: 05/03/20 Nurse visit only Objective - Vital Signs Vital signs: Vital Signs Temp 98.4 F 05/03/20 13:34 Pulse 84 05/03/20 13:34 Resp 16 05/03/20 13:34 BP 135/86 05/03/20 13:34 Pulse Ox Intake & Output 05/02/20 05/03/20 05/03/20 18:59 06:59 18:59 Weight 97.522 kg
== END | disposition home or self-care (01) ==
LOC: BARWHC3 12:56
PROVIDERS: ATTEND Surgery Plastic and Reconstructive Surgery
DX: E66.01 Morbid (severe) obesity due to excess calories (principal)
CPT/HCPCS: 97803; 99211

== ENCOUNTER → 2020-05-31 | Outpatient (CLI) | payer BC ==
[2020-05-31 09:32] LABS: HCT 43.3 % (34.0-46.0); HGB 14.1 gm/dL (11.4-16.0); MCH 30.1 pg (25.0-35.0); MCHC 32.5 g/dL (31.0-37.0); MCV 92.5 fL (80.0-100.0); Mean Platelet Volume 8.1; Platelet Count 199 k/uL (150-450); RBC 4.68 m/uL (3.80-5.40); WBC 4.9 k/uL (3.8-10.6)
[2020-05-31 17:13] LABS: % Iron Saturation 20.86 (12.00-45.00); African American GFR (CKD) 119.6 (60.0-200.0); Albumin 4.4 g/dL (3.80-4.90); Anion Gap 12.1 mmol/L (4.00-12.00); Calcium 9.8 mg/dL (8.7-10.3); Carbon Dioxide 25.9 mmol/L (21.6-31.8); Chol/HDL Ratio 3.69; Globulin 2.2 g/dL (1.6-3.3); LDL Cholesterol,Calculated 91.2 mg/dL (0.0-131.0); Magnesium 1.8 mg/dL (1.5-2.4); Non-African American GFR(CKD) 103.2 (60.0-200.0); Phosphorus 3.8 mg/dL (2.4-5.1); Potassium 3.9 mmol/L (3.5-5.5); Total Bilirubin 0.5 mg/dL (0.3-1.2); Total Protein 6.6 g/dL (6.2-8.2); VLDL Calculation 13.8 mg/dL (5.00-40.00)
[2020-05-31 17:31] LABS: Folate, Serum 16.2 ng/mL
[2020-05-31 23:43] LABS: INR 1.08 (0.90-1.11); Partial Thromboplastin Time 29.6 sec (24.7-29.9); Prothrombin Time 11.5 sec (9.9-11.9)
[2020-06-01 13:55] LABS: Zinc, Serum 88 ug/dL (60-130)
[2020-06-01 15:26] LABS: Vit B1(Thiamine) 49 ug/L (38-122)
[2020-06-03 04:12] LABS: Selenium 92 mcg/L (63-160)
[2020-06-04 06:29] LABS: Vitamin A 36 ug/dL (38-106)
== END | disposition home or self-care (01) ==
LOC: LABWHC1 08:21
PROVIDERS: ATTEND Surgery Plastic and Reconstructive Surgery
DX: E21.1 Secondary hyperparathyroidism, not elsewhere classified (principal); E89.1 Postprocedural hypoinsulinemia; D50.9 Iron deficiency anemia, unspecified; K90.9 Intestinal malabsorption, unspecified; E55.9 Vitamin D deficiency, unspecified; K74.1 Hepatic sclerosis; N19 Unspecified kidney failure; K50.90 Crohn's disease, unspecified, without complications; E66.01 Morbid (severe) obesity due to excess calories
CPT/HCPCS: 36415; 80053; 80061; 82306; 82525; 82607; 82728; 82746; 83036; 83540; 83550; 83735; 83970; 84100; 84134; 84255; 84425; 84443; 84590; 84630; 85027; 85610; 85730

== ENCOUNTER → 2020-10-17 | Outpatient (CLI) | payer BC ==
[2020-10-17 13:30] VITALS: BP 114/78; PULSE 60; RESP 18; TEMP 98.2; BMI 26.9
--- NOTE | 2020-10-17 14:10 | P.PN ---
Subjective Progress Note Date: 10/17/20 DATE OF SERVICE: 10/17/2020 CHIEF COMPLAINT: Status post gastric bypass HISTORY OF PRESENT ILLNESS: Emi Freitas is a 49-year-old female who is status post gastric bypass, 04/30/20. She is 6 months out. She comes in with more weight loss. She exercises 5x/week to 6x/week. She denies moderate back pain. She is back to work. She meets with a personal financial advisor. She gets her protein and water as prescribed. She struggles with textured foods like beef that comes back up. She reports nausea with certain types of foods. She has horrible constipation with iron. She also reports trouble with her skin of the pannus. At height of 5 feet 2.75 inches, her ideal body weight is 135 pounds. Highest weight 216 pounds, BMI 38.6. She comes in 151 pounds from 175 pounds, 3 months. She has lost 24 pounds in 3 months. Her body mass index is improved from 38.6 to 27.0. She has lost 65 pounds lifetime. Her lifetime percent excess weight loss is 81 %. She is 16 pounds overweight. PAST MEDICAL HISTORY: 1. Morbid obesity due to excess calories 2. Body mass index of 36.7, initial 3. Depressive disorder 4. Gastroesophageal reflux disease 5. Osteoarthritis of the hips. 6. Osteoarthritis of the knees. 7. Osteoarthritis of the lower back. PAST SURGICAL HISTORY: 1. Diagnostic laparoscopy 2. Upper endoscopy 3. Status post gastric bypass HOME MEDICATIONS: Home Medications Medication Instructions Recorded Confirmed Venlafaxine HCl [Effexor XR] 150 mg PO HS 12/21/19 01/18/20 Cholecalciferol [Vitamin D3 (25 10,000 units PO DAILY 01/02/20 01/18/20 Mcg = 1000 Iu)] Acetaminophen/Diphenhydramine 0.5 tab PO HS PRN 01/18/20 01/18/20 [Tylenol PM 500-25mg] Calcium Citrate 1,200 mg PO DAILY 01/18/20 01/18/20 ALLERGIES: Allergies Allergy/AdvReac Type Severity Reaction Status Date / Time No Known Allergies Allergy Verified 01/23/20 12:00 SOCIAL HISTORY: Past tobacco use. She has a Master's degree. FAMILY HISTORY: No family history of ulcerative colitis disease or Crohn's disease. Family history of morbid obesity. No lupus in the family. No reports of stomach or esophageal cancer. She has family history of breast cancer. Her mother had DVT. No lupus or multiple sclerosis in the family. REVIEW OF ORGAN SYSTEMS: CONSTITUTIONAL: At height of 5 feet 2.75 inches, her ideal body weight is 135 pounds. Highest 216 pounds, BMI 38.6 HEENT: Denies any active troubles with vision or hearing. She has occasional food getting stuck in the throat. ENDOCRINE: No diabetes. No hypothyroidism. CARDIOVASCULAR: Past reports of palpitations or heart attacks or chest pain. RESPIRATORY: Has daytime somnolence. Has asthma. GASTROINTESTINAL: Denies any bright red blood per rectum. She has chronic diarrhea. No constipation. MUSCULOSKELETAL: She has lower back pain with arthritis with DJD. She has bilateral arthritis of the hips right greater left. Left knee arthritis is present. She has ankle arthritis. NEURO: No headaches. No seizure disorders. PSYCH: Has depression. No suicidal ideation. RHEUMATOLOGIC: No lupus. No rheumatoid arthritis. HEMATOLOGIC: No personal history of DVTs. She has reports of easy bruising. SKIN: No rash. No skin cancer. PHYSICAL EXAM: VITAL SIGNS: Height 5 foot 2.75 inches, weight 151 pounds. BMI 27.0 Vital Signs Temp 98.2 F 10/17/20 13:20 Pulse 60 10/17/20 13:20 Resp 18 10/17/20 13:20 BP 114/78 10/17/20 13:20 Pulse Ox GENERAL: Well-developed in no acute distress. HEENT: No scleral icterus. Extraocular movements grossly intact. Hears conversational speech. No nasal drainage. NECK: Supple without lymphadenopathy. CHEST: Nonlabored respirations with equal bilateral excursions. CARDIOVASCULAR: Distal 2+ pulses. ABDOMEN: Soft, non-tender. Mild panniculitis wth pannus of 2 pounds. MUSCULOSKELETAL: No clubbing, cyanosis. NEURO: No focal or lateralizing signs. Cranial nerves 2 through 12 grossly within normal limits. PSYCH: Appropriate affect. Alert and oriented to person, place and time. SKIN: Good skin turgor. Well perfused. ASSESSMENT: 1. Morbid obesity due to excess calories 2. Body mass index of 38.6 to 27.0 3. Depressive disorder 4. Gastroesophageal reflux disease 5. Osteoarthritis of the hips. 6. Osteoarthritis of the knees. 7. Osteoarthritis of the lower back. 8. Dysphagia 9. Supraventricular tachycardia 10. Diabetes type 2, well controlled, new diagnosis 11. Secondary hyperparathyroidism 12. Vitamin D deficiency 13. Status post gastric bypass 14. Panniculitis. 15. Dysphagia to solid and textured foods PLAN: 1. She needs adjustment of her iron sources such as bariatric advantage 2. For her pannus, recommend local treatment. Recommend evaluation in 6 months. 3. Recommend bariatric labs 4. Recommend upper endoscopy with dilation for dysphagia 5. For constipation, recommend lactulose and milk of magnesia. Objective - Vital Signs Vital signs: Vital Signs Temp 98.2 F 10/17/20 13:20 Pulse 60 10/17/20 13:20 Resp 18 10/17/20 13:20 BP 114/78 10/17/20 13:20 Pulse Ox Intake & Output 10/16/20 10/17/20 10/17/20 18:59 06:59 18:59 Weight 68.492 kg - Labs CBC & Chem 7: 10/17/20 14:35 10/17/20 14:35
[2020-10-17 16:17] LABS: HCT 39.9 % (34.0-46.0); HGB 13.3 gm/dL (11.4-16.0); MCH 30.5 pg (25.0-35.0); MCHC 33.4 g/dL (31.0-37.0); MCV 91.3 fL (80.0-100.0); Mean Platelet Volume 8.3; Platelet Count 247 k/uL (150-450); RBC 4.37 m/uL (3.80-5.40)
[2020-10-18 01:00] LABS: INR 1.1 (0.90-1.11); Partial Thromboplastin Time 30.6 sec (23.5-31.0); Prothrombin Time 11.8 sec (9.9-11.9)
[2020-10-18 03:18] LABS: Hemoglobin A1C 5.7 % (4.0-6.0)
[2020-10-18 04:28] LABS: % Iron Saturation 19.16 (12.00-45.00); African American GFR (CKD) 119.6 (60.0-200.0); Albumin 4.6 g/dL (3.80-4.90); Albumin/Globulin Ratio 2.19 (1.60-3.17); Anion Gap 11.8 mmol/L (4.00-12.00); BUN/Creat Ratio 25.71 Ratio (12.00-20.00); Calcium 10.2 mg/dL (8.7-10.3); Carbon Dioxide 25.2 mmol/L (21.6-31.8); Chol/HDL Ratio 3.12; Globulin 2.1 g/dL (1.6-3.3); LDL Cholesterol,Calculated 85.2 mg/dL (0.0-131.0); Non-African American GFR(CKD) 103.2 (60.0-200.0); Phosphorus 4.3 mg/dL (2.4-5.1); Potassium 3.7 mmol/L (3.5-5.5); Total Bilirubin 0.3 mg/dL (0.3-1.2); Total Protein 6.7 g/dL (6.2-8.2); VLDL Calculation 20.8 mg/dL (5.00-40.00)
[2020-10-18 04:38] LABS: Ferritin 94.3 ng/mL (10.0-291.0)
[2020-10-18 04:44] LABS: Folate, Serum 14.2 ng/mL
[2020-10-18 12:44] LABS: Zinc, Serum 79 ug/dL (60-130)
[2020-10-19 07:14] LABS: Vitamin A 28 ug/dL (38-106)
[2020-10-19 07:20] LABS: Vit B1(Thiamine) 89 ug/L (38-122)
[2020-10-21 02:37] LABS: Selenium 160 mcg/L (63-160)
== END | disposition home or self-care (01) ==
LOC: BARWHC3 12:49
PROVIDERS: ATTEND Surgery Plastic and Reconstructive Surgery
DX: E66.01 Morbid (severe) obesity due to excess calories (principal); F32.9 Major depressive disorder, single episode, unspecified; K21.9 Gastro-esophageal reflux disease without esophagitis; M17.0 Bilateral primary osteoarthritis of knee; M16.0 Bilateral primary osteoarthritis of hip; M47.9 Spondylosis, unspecified; R13.10 Dysphagia, unspecified; I47.1 Supraventricular tachycardia; E11.9 Type 2 diabetes mellitus without complications; N25.81 Secondary hyperparathyroidism of renal origin; E55.9 Vitamin D deficiency, unspecified; M79.3 Panniculitis, unspecified; Z68.27 Body mass index [BMI] 27.0-27.9, adult; Z98.84 Bariatric surgery status; D50.8 Other iron deficiency anemias; E44.0 Moderate protein-calorie malnutrition; K74.1 Hepatic sclerosis; N19 Unspecified kidney failure; K50.90 Crohn's disease, unspecified, without complications
CPT/HCPCS: 80053; 80061; 82306; 82525; 82607; 82728; 82746; 83036; 83540; 83550; 83735; 83970; 84100; 84134; 84255; 84425; 84443; 84590; 84630; 85027; 85610; 85730; 97803; 99211

== ENCOUNTER 2020-10-31 09:45 | Day surgery (SDC) | payer BC ==
[2020-10-26 15:59] VITALS: BMI 26.5
[~2020-10-31 09:45] MED LIST changes: -ACETAMINOPHEN IV (For NPO) 1,000 MG in EMPTY BAG 1 BAG IVPB ONE; -CHLORHEXIDINE GLUCONATE 15 ML CUP MUCOUS MEM ONE; -DEXAMETHASONE SOD PHOSPHATE 10 MG/ML 1 ML VIAL IV ONE; -ENOXAPARIN 40 MG/0.4 ML SYRINGE SQ STA; -GLYCOPYRROLATE 0.2 MG/ML 2 ML VIAL ONE; -HYDROmorphone (PF) 1 MG/ML ONE; +LACTATED RINGERS 1,000 ML IV SCH; +LIDOCAINE 1% (10MG/ML) FOR IV START INTRADERMA PRN; -LIDOCAINE 1% INJ 10MG/ML (20 ML MDV) ONE; -MIDAZOLAM 2 MG/2 ML VIAL IV PRN; -MIDAZOLAM 2 MG/2 ML VIAL ONE; -NEOSTIGMINE 1 MG/ML 10 ML VIAL ONE; -ONDANSETRON 4 MG/2 ML VIAL IVP ONE; -PANTOPRAZOLE 40 MG/10 ML VIAL IV STA; -PHENYLEPHRINE-0.9% NACL SYG 1 MG/10 ML SYRINGE ONE; -PROPOFOL 10 MG/ML 20 ML VIAL IV ONE; -ROCURONIUM BROMIDE 10 MG/ML 5 ML VIAL IV ONE; -SUCCINYLCHOLINE CHLORIDE 100 MG/5 ML SYR IV ONE; -fentaNYL (PF) 50 MCG/ML 2 ML AMP ONE
--- NOTE | 2020-10-31 09:50 | P.GSHP ---
History of Present Illness H&P Date: 10/31/20 CHIEF COMPLAINT: GERD HISTORY OF PRESENT ILLNESS: The patient is a 50-year-old female who presents reports gastroesophageal reflux disease. Upper endoscopy was offered for further evaluation and management. PAST MEDICAL HISTORY: Please see list. PAST SURGICAL HISTORY: Please see list. MEDICATIONS: Please see list. ALLERGIES: Please see list. SOCIAL HISTORY: No illicit drug use FAMILY HISTORY: No reports of Crohn disease or ulcerative colitis. REVIEW OF ORGAN SYSTEMS: CONSTITUTIONAL: No reports of fevers or chills. GI: Denies any blood in stools or constipation. PHYSICAL EXAM: VITAL SIGNS: Stable GENERAL: Well-developed and pleasant in no acute distress. HEENT: No scleral icterus. Extraocular movements grossly intact. Moist buccal mucosa. NECK: Supple without lymphadenopathy. CHEST: Unlabored respirations. Equal bilateral excursions. CARDIOVASCULAR: Regular rate and rhythm. Distal 2+ pulses. ABDOMEN: Soft, nondistended. MUSCULOSKELETAL: No clubbing, cyanosis, or edema. ASSESSMENT: 1. Gastroesophageal reflux disease PLAN: 1. Recommend proceeding with an upper endoscopy Past Medical History Past Medical History: Asthma, Diabetes Mellitus, GERD/Reflux, Osteoarthritis (OA) Additional Past Medical History / Comment(s): HX SVT, EXERCISE INDUCED ASTHMA, CONSTIPATION, ARTHRITIS IN BACK & KNEES, HX BORDERLINE DIABETES, A1C normal now. Acid reflux resolved. History of Any Multi-Drug Resistant Organisms: None Reported Past Surgical History: Bariatric Surgery, Orthopedic Surgery, Uterine Ablation Additional Past Surgical History / Comment(s): Leep surgery, ACL repair, Sleeve. Past Anesthesia/Blood Transfusion Reactions: Family History of Problems w/ Anesthesia, Motion Sickness Additional Past Anesthesia/Blood Transfusion Reaction / Comment(s): Mom has difficulty waking up. Past Psychological History: Anxiety, Depression Smoking Status: Never smoker Past Alcohol Use History: None Reported Additional Past Alcohol Use History / Comment(s): QUIT SMOKING MARCH 19, 2020, SMOKED 1 TO [facility] ,. SMOKED ON AND OFF FOR 12 YEARS. Past Drug Use History: None Reported - Past Family History Mother Family Medical History: Cancer Additional Family Medical History / Comment(s): BREAST CANCER, noncancerous brain tumors. Medications and Allergies Home Medications Medication Instructions Recorded Confirmed Type Calcium Carbonate [Calcium] 500 mg PO BID 07/25/20 10/26/20 History Cholecalciferol [Vitamin D3 (25 10,000 unit PO DAILY 07/25/20 10/26/20 History Mcg = 1000 Iu)] Multivitamin [Multivitamins Adult 1 each PO BID 07/25/20 10/26/20 History Gummies] Vilazodone HCl [Viibryd] 20 mg PO DAILY 10/17/20 10/26/20 History Lactulose [Cephulac] 30 gm PO BID PRN 10/26/20 10/26/20 History Magnesium Hydroxide [Milk of 2,400 mg PO DAILY PRN 10/26/20 10/26/20 History Magnesia] Nystatin 100,000 Unit/gm Powd 1 applic TOPICAL BID PRN 10/26/20 10/26/20 History [Mycostatin Powder] Allergies Allergy/AdvReac Type Severity Reaction Status Date / Time No Known Allergies Allergy Verified 10/26/20 15:44
[2020-10-31 10:28] VITALS: TEMP 97.1
[2020-10-31] MEDS ORDERED: PROPOFOL 10 MG/ML 20 ML VIAL IV ONE (11:05)
[2020-10-31] MEDS ORDERED: LIDOCAINE 1% INJ 10MG/ML (20 ML MDV) ONE (11:05)
[2020-10-31 11:26] VITALS: RESP 16
--- NOTE | 2020-10-31 11:28 | P.PCN ---
Date of Procedure: 10/31/20 Description of Procedure: PREOPERATIVE DIAGNOSES: 1. Epigastric abdominal pain. 2. Nausea and vomiting. POSTOPERATIVE DIAGNOSES: 1. Epigastric abdominal pain. 2. Nausea and vomiting. 3. Acute gastrojejunal ulcer with obstruction PROCEDURE PERFORMED: Esophagogastrojejunoscopy. SURGEON: Flora Ardon MD ANESTHESIA: MAC. INDICATIONS: The patient is a 50-year-old female with intermittent nausea and vomiting and epigastric abdominal pain. With hir history of Reanna-en-Y gastric bypass, upper endoscopy was offered for further evaluation and management. DESCRIPTION: Patient was brought to the endoscopy suite and laid in the left lateral decubitus position. After adequate IV sedation, a bite block was placed. An Olympus gastroscope was passed along the posterior oropharynx down to the distal esophagus where the squamocolumnar junction was found at approximately 38 cm from the incisors. The anastomosis was found at 43 cm, consistent with approximately 5 cm gastric pouch. The scope was advanced 60 cm from the incisors. No evidence of foreign body was found. Active gastrojejunal ulcerations with inflammation along the anastomosis and stricture of 15 mm. Dilation was deferred due to acute ulceration and high risk of perforation and bleeding. The GI tract was desufflated. The patient tolerated the procedure well. FINDINGS: 1. Acute gastrojejunal ulceration with bleeding with mild obstruction 2. No foreign body found along the anastomosis. PLAN: 1. Start omeprazole 40 mg daily including Carafate twice daily at least 4 weeks 2. Repeat upper endoscopy with balloon dilation after treatment Plan - Discharge Summary Discharge Rx Participant: No New Discharge Prescriptions: New Sucralfate [Carafate] 1 gm PO BID #60 tablet Omeprazole [PriLOSEC] 40 mg PO DAILY #90 cap Continue Cholecalciferol [Vitamin D3 (25 Mcg = 1000 Iu)] 10,000 unit PO DAILY Multivitamin [Multivitamins Adult Gummies] 1 each PO BID Calcium Carbonate [Calcium] 500 mg PO BID Nystatin 100,000 Unit/gm Powd [Mycostatin Powder] 1 applic TOPICAL BID PRN PRN Reason: Skin Irritation Lactulose [Cephulac] 30 gm PO BID PRN PRN Reason: Constipation FLUoxetine HCL [PROzac] 20 mg PO DAILY Discharge Medication List Calcium Carbonate [Calcium] 500 mg PO BID 07/25/20 [History] Cholecalciferol [Vitamin D3 (25 Mcg = 1000 Iu)] 10,000 unit PO DAILY 07/25/20 [History] Multivitamin [Multivitamins Adult Gummies] 1 each PO BID 07/25/20 [History] Lactulose [Cephulac] 30 gm PO BID PRN 10/26/20 [History] Nystatin 100,000 Unit/gm Powd [Mycostatin Powder] 1 applic TOPICAL BID PRN 10/26/20 [History] FLUoxetine HCL [PROzac] 20 mg PO DAILY 10/31/20 [History] Omeprazole [PriLOSEC] 40 mg PO DAILY #90 cap 10/31/20 [Rx] Sucralfate [Carafate] 1 gm PO BID #60 tablet 10/31/20 [Rx] Follow up [facility]ment(s[facility] [place] [facility] - [facility]20 Patient Instructions/Handouts: Peptic Ulcer (DC), Gastritis (DC), Diet for Stomach Ulcers and Gastritis (ED) Activity/Diet/Wound Care/Special Instructions: Please start taking new prescriptions for at least 4 weeks through Dec 01 Discharge Disposition: HOME SELF-CARE
[2020-10-31 11:43] VITALS: BP 105/71; PULSE 63
== END 2020-10-31 12:04 | disposition home or self-care (01) ==
LOC: ORWHC2ENDO 09:45
PROVIDERS: ATTEND Surgery Plastic and Reconstructive Surgery
DX: K28.0 Acute gastrojejunal ulcer with hemorrhage (principal); K91.89 Other postprocedural complications and disorders of digestive system; K31.89 Other diseases of stomach and duodenum; F32.9 Major depressive disorder, single episode, unspecified; K21.9 Gastro-esophageal reflux disease without esophagitis; J45.990 Exercise induced bronchospasm; E11.9 Type 2 diabetes mellitus without complications; M19.90 Unspecified osteoarthritis, unspecified site; F41.9 Anxiety disorder, unspecified; Z79.899 Other long term (current) drug therapy; Z98.84 Bariatric surgery status; Z98.890 Other specified postprocedural states; Z87.891 Personal history of nicotine dependence; Z80.3 Family history of malignant neoplasm of breast
CPT/HCPCS: 81025; 43235; J2001; J2704

== ENCOUNTER → 2020-11-28 | Outpatient (CLI) | payer BC ==
[2020-11-28 14:58] VITALS: BP 104/70; PULSE 69; RESP 18; TEMP 98.3; BMI 25.2
--- NOTE | 2020-11-28 15:12 | P.PN ---
Subjective Progress Note Date: 11/28/20 DATE OF SERVICE: 11/28/2020 CHIEF COMPLAINT: Status post gastric bypass HISTORY OF PRESENT ILLNESS: Emi Freitas is a 49-year-old female who is status post gastric bypass, 04/30/20. She is over 6 months out. She continues to lose weight. She has an ulcer. She had roast beef and had dysphagia with it. She is exercising. She is happy with her weight loss. At height of 5 feet 2.75 inches, her ideal body weight is 135 pounds. Highest weight 216 pounds, BMI 38.6. She comes in 175 pounds from 199 pounds in 2 months. She has lost 24 pounds in 2 months. Her body mass index is improved from 38.6 to 31.2. She has lost 41 pounds lifetime. Her lifetime percent excess weight loss is 51 %. She is 40 pounds overweight. PHYSICAL EXAM: VITAL SIGNS: Height 5 foot 2.75 inches, weight 141 pounds. BMI 25.2 Vital Signs Temp 98.3 F 11/28/20 14:52 Pulse 69 11/28/20 14:52 Resp 18 11/28/20 14:52 BP 104/70 11/28/20 14:52 Pulse Ox GENERAL: Well-developed in no acute distress. HEENT: No scleral icterus. Extraocular movements grossly intact. Hears conversational speech. No nasal drainage. NECK: Supple without lymphadenopathy. CHEST: Nonlabored respirations with equal bilateral excursions. CARDIOVASCULAR: Distal 2+ pulses. ABDOMEN: Soft, non-tender. MUSCULOSKELETAL: No clubbing, cyanosis. NEURO: No focal or lateralizing signs. Cranial nerves 2 through 12 grossly within normal limits. PSYCH: Appropriate affect. Alert and oriented to person, place and time. SKIN: Good skin turgor. Well perfused. EGD FINDINGS: 1. Acute gastrojejunal ulceration with bleeding with mild obstruction 2. No foreign body found along the anastomosis. LABS: Reviewed. Pre-albumin is low. Vitamin A is low. ASSESSMENT: 1. Morbid obesity due to excess calories 2. Body mass index of 38.6 to 25.2 3. Depressive disorder 4. Gastroesophageal reflux disease 5. Osteoarthritis of the hips. 6. Osteoarthritis of the knees. 7. Osteoarthritis of the lower back. 8. Dysphagia 9. Supraventricular tachycardia 10. Diabetes type 2, well controlled, new diagnosis 11. Secondary hyperparathyroidism 12. Vitamin D deficiency 13. Status post gastric bypass 14. Gastrojejunal ulcer 15. Vitamin A deficiency PLAN: 1. Recommend repeat upper endoscopy for dysphagia. Objective - Vital Signs Vital signs: Vital Signs Temp 98.3 F 11/28/20 14:52 Pulse 69 11/28/20 14:52 Resp 18 11/28/20 14:52 BP 104/70 11/28/20 14:52 Pulse Ox Intake & Output 11/27/20 11/28/20 11/28/20 18:59 06:59 18:59 Weight 63.957 kg
== END | disposition home or self-care (01) ==
LOC: BARWHC3 13:45
PROVIDERS: ATTEND Surgery Plastic and Reconstructive Surgery
DX: E66.01 Morbid (severe) obesity due to excess calories (principal); K21.9 Gastro-esophageal reflux disease without esophagitis; M16.0 Bilateral primary osteoarthritis of hip; M17.0 Bilateral primary osteoarthritis of knee; F32.9 Major depressive disorder, single episode, unspecified; M47.9 Spondylosis, unspecified; R13.10 Dysphagia, unspecified; I47.1 Supraventricular tachycardia; E11.9 Type 2 diabetes mellitus without complications; N25.81 Secondary hyperparathyroidism of renal origin; E55.9 Vitamin D deficiency, unspecified; K28.9 Gastrojejunal ulcer, unspecified as acute or chronic, without hemorrhage or perforation; E50.9 Vitamin A deficiency, unspecified; Z98.84 Bariatric surgery status; Z68.25 Body mass index [BMI] 25.0-25.9, adult
CPT/HCPCS: 99211

== ENCOUNTER → 2020-12-13 | Outpatient (CLI) | payer BC ==
--- NOTE | 2020-12-14 13:58 | MM ---
Reason for exam: screening (asymptomatic). Last mammogram was performed 2 years and 6 months ago. History: Patient is postmenopausal and had first child at age 35. Family history of breast cancer in paternal aunt and breast cancer in mother at age 68. Took hormonal contraceptives for 12 years beginning at age 16. Physical Findings: A clinical breast exam by your physician is recommended on an annual basis and results should be correlated with mammographic findings. MG 3D Screening Mammo W/Cad Bilateral CC and MLO view(s) were taken. Prior study comparison: June 23, 2018, right breast MG 3d work up w/cad RT. June 18, 2018, bilateral MG 3d screening mammo w/cad. The breast tissue is heterogeneously dense. This may lower the sensitivity of mammography. There is no discrete abnormality. No significant changes when compared with prior studies. ASSESSMENT: Negative, BI-RAD 1 RECOMMENDATION: Routine screening mammogram of both breasts in 1 year.
== END | disposition home or self-care (01) ==
LOC: RADMAMWWP 15:54
PROVIDERS: ATTEND Obstetrics & Gynecology Obstetrics
DX: Z12.31 Encounter for screening mammogram for malignant neoplasm of breast (principal); Z80.3 Family history of malignant neoplasm of breast
CPT/HCPCS: 77063; 77067

== ENCOUNTER 2021-01-02 09:33 | Day surgery (SDC) | payer BC ==
[2020-12-27 15:01] VITALS: BMI 24.1
--- NOTE | 2021-01-02 08:47 | P.GSHP ---
History of Present Illness H&P Date: 01/02/21 CHIEF COMPLAINT: GERD HISTORY OF PRESENT ILLNESS: The patient is a 50-year-old female who presents reports gastroesophageal reflux disease. Upper endoscopy was offered for further evaluation and management. PAST MEDICAL HISTORY: Please see list. PAST SURGICAL HISTORY: Please see list. MEDICATIONS: Please see list. ALLERGIES: Please see list. SOCIAL HISTORY: No illicit drug use FAMILY HISTORY: No reports of Crohn disease or ulcerative colitis. REVIEW OF ORGAN SYSTEMS: CONSTITUTIONAL: No reports of fevers or chills. GI: Denies any blood in stools or constipation. PHYSICAL EXAM: VITAL SIGNS: Stable GENERAL: Well-developed and pleasant in no acute distress. HEENT: No scleral icterus. Extraocular movements grossly intact. Moist buccal mucosa. NECK: Supple without lymphadenopathy. CHEST: Unlabored respirations. Equal bilateral excursions. CARDIOVASCULAR: Regular rate and rhythm. Distal 2+ pulses. ABDOMEN: Soft, nondistended. MUSCULOSKELETAL: No clubbing, cyanosis, or edema. ASSESSMENT: 1. Gastroesophageal reflux disease PLAN: 1. Recommend proceeding with an upper endoscopy Past Medical History Past Medical History: Asthma, Diabetes Mellitus, GERD/Reflux, Osteoarthritis (OA) Additional Past Medical History / Comment(s): HX SVT, EXERCISE INDUCED ASTHMA, CONSTIPATION, ARTHRITIS IN BACK & KNEES, HX BORDERLINE DIABETES, A1C normal now. Acid reflux resolved. History of Any Multi-Drug Resistant Organisms: None Reported Past Surgical History: Bariatric Surgery, Orthopedic Surgery, Uterine Ablation Additional Past Surgical History / Comment(s): Leep surgery, ACL repair, Sleeve, EGD. Past Anesthesia/Blood Transfusion Reactions: Family History of Problems w/ Anesthesia, Motion Sickness Additional Past Anesthesia/Blood Transfusion Reaction / Comment(s): Mom has difficulty waking up. Past Psychological History: Anxiety, Depression Smoking Status: Never smoker Past Alcohol Use History: None Reported Additional Past Alcohol Use History / Comment(s): QUIT SMOKING MARCH 19, 2020, SMOKED 1 TO [facility], SMOKED ON AND OFF FOR 12 YEARS. Past Drug Use History: None Reported - Past Family History Mother Family Medical History: Cancer Additional Family Medical History / Comment(s): BREAST CANCER, noncancerous brain tumors. Medications and Allergies Home Medications Medication Instructions Recorded Confirmed Type Calcium Carbonate [Calcium] 500 mg PO BID 07/25/20 12/27/20 History Cholecalciferol [Vitamin D3 (25 10,000 unit PO DAILY 07/25/20 12/27/20 History Mcg = 1000 Iu)] Multivitamin [Multivitamins Adult 1 each PO BID 07/25/20 12/27/20 History Gummies] Lactulose [Cephulac] 30 gm PO BID PRN 10/26/20 12/27/20 History Nystatin 100,000 Unit/gm Powd 1 applic TOPICAL BID PRN 10/26/20 12/27/20 History [Mycostatin Powder] FLUoxetine HCL [PROzac] 20 mg PO DAILY 10/31/20 12/27/20 History Omeprazole [PriLOSEC] 40 mg PO DAILY #90 cap 10/31/20 12/27/20 Rx Sucralfate [Carafate] 1 gm PO BID #60 tablet 10/31/20 12/27/20 Rx Vitamin A (Unknown Dose) 1 tab PO DAILY 12/27/20 History Allergies Allergy/AdvReac Type Severity Reaction Status Date / Time No Known Allergies Allergy Verified 12/27/20 14:53
[2021-01-02 10:17] VITALS: RESP 16; TEMP 97.5
[2021-01-02] MEDS ORDERED: PROPOFOL 10 MG/ML 20 ML VIAL IV ONE (10:42)
[2021-01-02 11:26] VITALS: PULSE 60
[2021-01-02 11:45] VITALS: BP 97/57
--- NOTE | 2021-01-02 11:55 | P.PCN ---
Date of Procedure: 01/02/21 Description of Procedure: PREOPERATIVE DIAGNOSIS: Dysphagia. Gastroesophageal reflux disease History of gastrojejunal ulcer POSTOPERATIVE DIAGNOSIS: Dysphagia. Gastroesophageal reflux disease Gastrojejunal stricture without chronic ulcer without perforation OPERATION: Esophagogastrojejunoscopy with balloon dilatation from 10 to 18 mm. SURGEON: Flora Ardon MD ANESTHESIA: MAC. INDICATIONS: The patient is a 50-year-old female who presents with a history of gastrojejunal ulcer including gastroesophageal reflux disease and dysphagia. Benefits and risks of the procedure were described. Informed consent was obtained. DESCRIPTION: The patient was brought into the endoscopy suite and laid in the left lateral decubitus position. After a timeout was confirmed, the procedure was initiated. An Olympus gastroscope was passed along the posterior oropharynx down to the distal esophagus where the squamocolumnar junction was unremarkable. The gastric pouch was entered. A gastrojejunal stricture of 10 mm was found as the adult gastroscope was 9.5 mm in size. A GTX Messaging balloon dilator was placed through the scope. Final insufflation up to 18 mm was performed with a total of 2 minutes. The scope was advanced up to 60 cm from the incisors into the Reanna limb. The mucosa of the gastrojejunal anastomosis was intact. Resolved chronic gastrojejunal marginal ulcer was encountered. No full-thickness injury was encountered. The GI tract was desufflated. The patient tolerated the p rocedure well. FINDINGS: Squamocolumnar junction unremarkable at 37 cm. Stricture of approximately 10 mm encountered. Resolved chronic gastrojejunal ulceration encountered. Successful balloon dilatation to 18 mm. Gastric pouch 5 cm. RECOMMENDATIONS: Upper endoscopy as needed Plan - Discharge Summary Discharge Rx Participant: No New Discharge Prescriptions: Continue Cholecalciferol [Vitamin D3 (25 Mcg = 1000 Iu)] 10,000 unit PO DAILY Multivitamin [Multivitamins Adult Gummies] 1 each PO BID Calcium Carbonate [Calcium] 500 mg PO BID Nystatin 100,000 Unit/gm Powd [Mycostatin Powder] 1 applic TOPICAL BID PRN PRN Reason: Skin Irritation Lactulose [Cephulac] 30 gm PO BID PRN PRN Reason: Constipation FLUoxetine HCL [PROzac] 20 mg PO DAILY Sucralfate [Carafate] 1 gm PO BID #60 tablet Omeprazole [PriLOSEC] 40 mg PO DAILY #90 cap Vitamin A (Unknown Dose) 1 tab PO DAILY Discharge Medication List Calcium Carbonate [Calcium] 500 mg PO BID 07/25/20 [History] Cholecalciferol [Vitamin D3 (25 Mcg = 1000 Iu)] 10,000 unit PO DAILY 07/25/20 [History] Multivitamin [Multivitamins Adult Gummies] 1 each PO BID 07/25/20 [History] Lactulose [Cephulac] 30 gm PO BID PRN 10/26/20 [History] Nystatin 100,000 Unit/gm Powd [Mycostatin Powder] 1 applic TOPICAL BID PRN 10/26/20 [History] FLUoxetine HCL [PROzac] 20 mg PO DAILY 10/31/20 [History] Omeprazole [PriLOSEC] 40 mg PO DAILY #90 cap 10/31/20 [Rx] Sucralfate [Carafate] 1 gm PO BID #60 tablet 10/31/20 [Rx] Vitamin A (Unknown Dose) 1 tab PO DAILY 12/27/20 [History] Follow up Appointment(s)/Ref[facility] [place] [facility] - [facility]21 Patient Instructions/Handouts: Esophageal Dilation (DC) Activity/Diet/Wound Care/Special Instructions: Liquid diet today. Texture diet tomorrow. Discharge Disposition: HOME SELF-CARE
== END 2021-01-02 12:09 | disposition home or self-care (01) ==
LOC: ORWHC2ENDO 09:33
PROVIDERS: ATTEND Surgery Plastic and Reconstructive Surgery
DX: K95.89 Other complications of other bariatric procedure (principal); K56.699 Other intestinal obstruction unspecified as to partial versus complete obstruction; K21.9 Gastro-esophageal reflux disease without esophagitis; J45.909 Unspecified asthma, uncomplicated; E11.9 Type 2 diabetes mellitus without complications; M19.90 Unspecified osteoarthritis, unspecified site; M17.0 Bilateral primary osteoarthritis of knee; M47.899 Other spondylosis, site unspecified; F41.9 Anxiety disorder, unspecified; F32.9 Major depressive disorder, single episode, unspecified; K08.89 Other specified disorders of teeth and supporting structures; I47.1 Supraventricular tachycardia; I73.9 Peripheral vascular disease, unspecified; Z87.11 Personal history of peptic ulcer disease; Z87.19 Personal history of other diseases of the digestive system; Z86.39 Personal history of other endocrine, nutritional and metabolic disease; Z98.890 Other specified postprocedural states; Z87.898 Personal history of other specified conditions; Z87.891 Personal history of nicotine dependence; Z79.899 Other long term (current) drug therapy; Z84.89 Family history of other specified conditions; Z80.3 Family history of malignant neoplasm of breast; Z82.0 Family history of epilepsy and other diseases of the nervous system
CPT/HCPCS: 43245; 43249; 81025

== ENCOUNTER → 2021-01-23 | Outpatient (CLI) | payer BC ==
[2021-01-23 14:10] VITALS: BP 126/73; PULSE 67; RESP 16; TEMP 98; BMI 23.2
--- NOTE | 2021-01-23 14:52 | P.PN ---
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 Her heartburn has improved. No further dysphagia. She works out everyday out of 7 days. She is due for labs. Labs Vitamin A reviewed. Recommend vitamin. Caution of artificial beverage and color red for heartburn. Gallbladder problems described. Objective - Vital Signs Vital signs: Vital Signs Temp 98 F 01/23/21 14:08 Pulse 67 01/23/21 14:08 Resp 16 01/23/21 14:08 BP 126/73 01/23/21 14:08 Pulse Ox Intake & Output 01/22/21 01/23/21 01/23/21 18:59 06:59 18:59 Weight 58.967 kg
== END ==
LOC: BARWHC3 12:53
PROVIDERS: ATTEND Surgery Plastic and Reconstructive Surgery
DX: E66.01 Morbid (severe) obesity due to excess calories (principal); J45.909 Unspecified asthma, uncomplicated; E11.9 Type 2 diabetes mellitus without complications; K21.9 Gastro-esophageal reflux disease without esophagitis; F41.9 Anxiety disorder, unspecified; F32.9 Major depressive disorder, single episode, unspecified; Z68.23 Body mass index [BMI] 23.0-23.9, adult; Z79.899 Other long term (current) drug therapy; Z87.891 Personal history of nicotine dependence
CPT/HCPCS: 97803; 99211

== ENCOUNTER → 2021-01-25 | Outpatient (CLI) | payer BC ==
[2021-01-25 15:30] LABS: Partial Thromboplastin Time 23.7 sec (22.0-30.0)
[2021-01-25 19:26] LABS: HCT 39.6 % (37.2-46.3); HGB 12.7 g/dL (12.0-15.0); MCH 30.6 pg (27.0-32.0); MCHC 32.1 g/dL (32.0-37.0); MCV 95.4 fL (80.0-97.0); Mean Platelet Volume 10.6 fL (9.5-12.2); Platelet Count 275 X 10*3/uL (140-440); RBC 4.15 X 10*6/uL (4.10-5.20); RDW 12.7 % (11.5-14.5); WBC 7.82 X 10*3/uL (4.50-10.00)
[2021-01-25 21:05] LABS: % Iron Saturation 27.42 (12.00-45.00); African American GFR (CKD) 118.7 (60.0-200.0); Albumin 4.5 g/dL (3.80-4.90); Albumin/Globulin Ratio 2.14 (1.60-3.17); Anion Gap 7.5 mmol/L (4.00-12.00); BUN/Creat Ratio 37.14 Ratio (12.00-20.00); Calcium 9.8 mg/dL (8.7-10.3); Carbon Dioxide 27.5 mmol/L (21.6-31.8); Chol/HDL Ratio 3.38; Globulin 2.1 g/dL (1.6-3.3); LDL Cholesterol,Calculated 113.6 mg/dL (0.0-131.0); Magnesium 2.1 mg/dL (1.5-2.4); Non-African American GFR(CKD) 102.5 (60.0-200.0); Phosphorus 4.7 mg/dL (2.4-5.1); Potassium 4.2 mmol/L (3.5-5.5); Total Bilirubin 0.3 mg/dL (0.3-1.2); Total Protein 6.6 g/dL (6.2-8.2); VLDL Calculation 17.4 mg/dL (5.00-40.00)
[2021-01-25 21:24] LABS: Ferritin 123.1 ng/mL (10.0-291.0)
[2021-01-25 22:20] LABS: Hemoglobin A1C 5.3 % (4.0-6.0)
[2021-01-25 22:35] LABS: Folate, Serum 11.1 ng/mL
[2021-01-28 13:55] LABS: Zinc, Serum 64 ug/dL (60-130)
[2021-01-28 18:09] LABS: Selenium 155 mcg/L (63-160)
[2021-01-29 06:57] LABS: Vitamin A 34 ug/dL (38-106)
[2021-01-29 12:15] LABS: Vit B1(Thiamine) 78 ug/L (38-122)
== END | disposition home or self-care (01) ==
LOC: LABWHC1 13:13
PROVIDERS: ATTEND Surgery Plastic and Reconstructive Surgery
DX: D50.8 Other iron deficiency anemias (principal); E66.01 Morbid (severe) obesity due to excess calories; E89.1 Postprocedural hypoinsulinemia; E55.9 Vitamin D deficiency, unspecified; K90.89 Other intestinal malabsorption; K74.1 Hepatic sclerosis
CPT/HCPCS: 36415; 80053; 80061; 82306; 82525; 82607; 82728; 82746; 83036; 83540; 83550; 83735; 83970; 84100; 84134; 84255; 84425; 84443; 84590; 84630; 85027; 85610; 85730

== ENCOUNTER → 2021-02-14 | Outpatient (CLI) | payer BC ==
--- NOTE | 2021-02-14 08:17 | US ---
EXAMINATION TYPE: US gallbladder DATE OF EXAM: 02/14/2021 COMPARISON: CT CLINICAL HISTORY: R10.11 RUQ pain;R94.5 Abnormal liver function test. Abn LFT's, pt states acid reflu x EXAM MEASUREMENTS: Liver Length: 14.4 cm Gallbladder Wall: 0.1 cm CBD: 0.6 cm Right Kidney: 10.7 x 4.5 x 3.6 cm Pancreas: wnl Liver: wnl Gallbladder: wnl Evidence for sonographic Johns's sign: No CBD: wnl Right Kidney: wnl No abnormality visualized at this time IMPRESSION: No distinct abnormality seen.
== END | disposition home or self-care (01) ==
LOC: RADUSWWP 07:45
PROVIDERS: ATTEND Surgery Plastic and Reconstructive Surgery
DX: R10.11 Right upper quadrant pain (principal); R94.5 Abnormal results of liver function studies
CPT/HCPCS: 76705

== ENCOUNTER → 2021-05-08 | Outpatient (CLI) | payer BC ==
[2021-05-08 15:05] VITALS: BP 97/66; PULSE 62; RESP 18; TEMP 98.2; BMI 21.4
--- NOTE | 2021-05-08 15:26 | P.PN ---
Subjective Progress Note Date: 05/08/21 She is 120 pounds. She has lost all of her weight. Her BMI is 21.0. She works out 30 minutes. 1 year out. She created new healthy habits for weight loss. On a weekly basis. Health, house, home and made it. She reports hemorrhoids. She is looking into colonoscopy. Objective - Vital Signs Vital signs: Vital Signs Temp 98.2 F 05/08/21 14:58 Pulse 62 05/08/21 14:58 Resp 18 05/08/21 14:58 BP 97/66 05/08/21 14:58 Pulse Ox Intake & Output 05/07/21 05/08/21 05/08/21 18:59 06:59 18:59 Weight 54.431 kg
[2021-05-08 15:38] LABS: HCT 39.6 % (34.0-46.0); HGB 12.8 gm/dL (11.4-16.0); MCH 30.3 pg (25.0-35.0); MCHC 32.4 g/dL (31.0-37.0); MCV 93.5 fL (80.0-100.0); Mean Platelet Volume 7.6; Platelet Count 246 k/uL (150-450); RBC 4.24 m/uL (3.80-5.40); RDW 12.9 % (11.5-15.5); WBC 6.2 k/uL (3.8-10.6)
[2021-05-09 00:14] LABS: Hemoglobin A1C 5.6 % (4.0-6.0)
[2021-05-09 01:19] LABS: % Iron Saturation 23.36 (12.00-45.00); ALT 69 U/L (8-44); AST 46 U/L (13-35); African American GFR (CKD) 124.9 (60.0-200.0); Alkaline Phosphatase 107 U/L (41-126); BUN/Creat Ratio 43.33 Ratio (12.00-20.00); Calcium 9.3 mg/dL (8.7-10.3); Carbon Dioxide 28.3 mmol/L (21.6-31.8); Chloride 105 mmol/L (96-109); Chol/HDL Ratio 2.83; Cholesterol 170 mg/dL (0-200); Glucose 104 mg/dL (70-110); Iron 75 ug/dL (50-170); LDL Cholesterol,Calculated 93.6 mg/dL (0.0-131.0); Non-African American GFR(CKD) 107.8 (60.0-200.0); Phosphorus 4.3 mg/dL (2.4-5.1); Sodium 142 mmol/L (135-145); Total Bilirubin 0.3 mg/dL (0.3-1.2); Total Iron Binding Capacity 321 ug/dL (228-460); Total Protein 6.4 g/dL (6.2-8.2)
[2021-05-09 01:27] LABS: Ferritin 88.8 ng/mL (10.0-291.0)
[2021-05-09 04:29] LABS: Folate, Serum >24.0 ng/mL
[2021-05-09 13:32] LABS: Zinc, Serum 55 ug/dL (60-130)
[2021-05-10 09:01] LABS: Vitamin A 39 ug/dL (38-106)
[2021-05-10 09:09] LABS: Vit B1(Thiamine) 79 ug/L (38-122)
[2021-05-15 17:09] LABS: Selenium 169 mcg/L (63-160)
== END | disposition home or self-care (01) ==
LOC: BARWHC3 14:34
PROVIDERS: ATTEND Surgery Plastic and Reconstructive Surgery
DX: E66.01 Morbid (severe) obesity due to excess calories (principal); Z68.21 Body mass index [BMI] 21.0-21.9, adult
CPT/HCPCS: 80053; 80061; 82306; 82525; 82607; 82728; 82746; 83036; 83540; 83550; 83735; 83970; 84100; 84255; 84425; 84443; 84590; 84630; 85027; 85610; 85730; 99211

== ENCOUNTER 2021-06-06 19:10 | Emergency (ER) | payer BC ==
[2021-06-06 19:44] VITALS: RESP 18
[2021-06-06] MEDS ORDERED: SODIUM CHLORIDE 0.9% 500 ML 500 ML IV STA (19:50)
[2021-06-06] MEDS ORDERED: ONDANSETRON 4 MG/2 ML VIAL IVP STA (19:50)
[2021-06-06] MEDS ORDERED: MORPHINE SULFATE 2 MG/ML SYRINGE IVP STA (19:50)
--- NOTE | 2021-06-06 20:10 | ED ---
Abdominal Pain HPI - General Chief Complaint: Abdominal Pain Stated Complaint: Rib pain/ chest pain Time Seen by Provider: 06/06/21 19:22 Source: patient Mode of arrival: ambulatory Limitations: no limitations - History of Present Illness Initial Comments: 50-year-old female patient presents to the emergency department today for evaluation of midepigastric, left upper quadrant abdominal pain. Patient states the pain started yesterday has been persistent. States nothing makes the pain worse over the pain does resolve spontaneously at times. States she is able to eat and drink without difficulty. Does feel some nausea. States there was an occasional radiated to her back but not frequently. Patient did have gastric bypass surgery about a year ago with Dr. Ardon. Denies any other abdominal surgeries. Denies any dark or tarry stools. Denies constipation or diarrhea. Patient denies any recent rash, cough, shortness of breath, chest pain, numbness, tingling, dizziness, weakness, hematuria, dysuria, urinary urgency, urinary frequency, headache, visual changes, or any other complaints. - Related Data Home Medications Medication Instructions Recorded Confirmed Calcium Carbonate [Calcium] 600 mg PO DIRECTED 07/25/20 06/06/21 Multivitamin [Multivitamins Adult 1 tab PO DIRECTED 07/25/20 06/06/21 Gummies] FLUoxetine HCL [PROzac] 20 mg PO HS 10/31/20 06/06/21 Biotin 5 mg PO DIRECTED 06/05/21 06/06/21 Cholecalciferol [Vitamin D3 (25 250 mcg PO DIRECTED 06/06/21 06/06/21 Mcg = 1000 Iu)] Linaclotide [Linzess] 290 mcg PO DAILY PRN 06/06/21 06/06/21 Vitamin A [Vitamin A (8,000 Units 2,400 mcg PO DIRECTED 06/06/21 06/06/21 = 2,400 MCG)] Allergies Allergy/AdvReac Type Severity Reaction Status Date / Time No Known Allergies Allergy Verified 06/06/21 21:35 Review of Systems ROS Statement: Those systems with pertinent positive or pertinent negative responses have been documented in the HPI. ROS Other: All systems not noted in ROS Statement are negative. Past Medical History Past Medical History: Asthma, Diabetes Mellitus, GERD/Reflux, Osteoarthritis (OA) Additional Past Medical History / Comment(s): HX SVT, EXERCISE INDUCED ASTHMA, CONSTIPATION, ARTHRITIS IN BACK & KNEES, HX BORDERLINE DIABETES, A1C normal now. Acid reflux resolved. pt has essure device for contraception History of Any Multi-Drug Resistant Organisms: None Reported Past Surgical History: Bariatric Surgery, Orthopedic Surgery, Uterine Ablation Additional Past Surgical History / Comment(s): Leep surgery, ACL repair, Sleeve. Past Anesthesia/Blood Transfusion Reactions: Family History of Problems w/ Anesthesia, Motion Sickness Additional Past Anesthesia/Blood Transfusion Reaction / Comment(s): Mom has difficulty waking up. Past Psychological History: Anxiety, Depression Smoking Status: Former smoker Past Alcohol Use History: None Reported Past Drug Use History: None Reported - Past Family History Mother Family Medical History: Cancer Additional Family Medical History / Comment(s): BREAST CANCER, noncancerous brain tumors. General Exam Limitations: no limitations General appearance: alert, in no apparent distress, other (This is a well- developed, well-nourished, nontoxic-appearing adult female patient in no acute distress. Vital signs upon presentation temperature 98.1F, pulse 59, respirations 17, blood pressure 119/78, pulse ox 100% on room air.) Respiratory exam: Present: normal lung sounds bilaterally. Absent: respiratory distress, wheezes, rales, rhonchi, stridor Cardiovascular Exam: Present: normal rhythm, bradycardia, normal heart sounds. Absent: systolic murmur, diastolic murmur, rubs, gallop, clicks GI/Abdominal exam: Present: soft, tenderness (Midepigastric, left upper quadrant), normal bowel sounds. Absent: distended, guarding, rebound, rigid Neurological exam: Present: alert, oriented X3, CN II-XII intact Psychiatric exam: Present: normal affect, normal mood Skin exam: Present: warm, dry, intact, normal color. Absent: rash Course Vital Signs 06/06/21 06/06/21 06/06/21 19:13 19:40 20:39 Temperature 98.1 F Pulse Rate 59 L 55 L 55 L Respiratory 17 18 18 Rate Blood Pressure 119/78 128/78 114/70 O2 Sat by Pulse 100 99 99 Oximetry 06/06/21 06/06/21 21:42 22:33 Temperature 97.8 F Pulse Rate 59 L 60 Respiratory 18 18 Rate Blood Pressure 107/68 100/85 O2 Sat by Pulse 99 98 Oximetry Medical Decision Making - Medical Decision Making 50-year-old female patient presented to the emergency department today for evaluation of left upper quadrant abdominal pain for the last couple of days. Reported associated nausea no vomiting. No shortness of breath or chest pain. Physical examination did reveal epigastric and left upper quadrant abdominal tenderness. Labs reviewed and did reveal mildly elevated liver function tests. LFTs were normal in April sided perform ultrasound of the right upper quadrant which was negative for any acute abnormalities. I did discuss findings and results with the patient reaches have a history of ulcer so she will be discharged with instructions to restart her Pepcid and Carafate. She is also instructed to call her general surgeon to discuss possible upper GI endoscopy. She does have colonoscopy coming up on Thursday. Return parameters were discussed in detail. She verbalized understanding and agrees this plan. Case discussed with my attending Dr. Paul. - Lab Data Result diagrams: 06/06/21 20:00 06/06/21 20:00 Lab Results 06/06/21 06/06/21 06/06/21 Range/Units 20:00 20:00 20:00 WBC 6.1 (3.8-10.6) k/uL RBC 4.06 (3.80-5.40) m/uL Hgb 13.1 (11.4-16.0) gm/dL Hct 38.3 (34.0-46.0) % MCV 94.3 (80.0-100.0) fL MCH 32.1 (25.0-35.0) pg MCHC 34.1 (31.0-37.0) g/dL RDW 13.1 (11.5-15.5) % Plt Count 243 (150-450) k/uL MPV 7.5 Neutrophils % 43 % Lymphocytes % 47 % Monocytes % 4 % Eosinophils % 2 % Basophils % 1 % Neutrophils # 2.7 (1.3-7.7) k/uL Lymphocytes # 2.9 (1.0-4.8) k/uL Monocytes # 0.3 (0-1.0) k/uL Eosinophils # 0.1 (0-0.7) k/uL Basophils # 0.1 (0-0.2) k/uL Sodium 136 L (137-145) mmol/L Potassium 4.5 (3.5-5.1) mmol/L Chloride 101 (98-107) mmol/L Carbon Dioxide 27 (22-30) mmol/L Anion Gap 8 mmol/L BUN 23 H (7-17) mg/dL Creatinine 0.58 (0.52-1.04) mg/dL Est GFR (CKD-EPI)AfAm >90 (>60 ml/min/1.73 sqM) Est GFR (CKD-EPI)NonAf >90 (>60 ml/min/1.73 sqM) Glucose 87 (74-99) mg/dL Plasma Lactic Acid Dionte (0.7-2.0) mmol/L Calcium 9.5 (8.4-10.2) mg/dL Total Bilirubin 0.3 (0.2-1.3) mg/dL AST 86 H (14-36) U/L ALT 130 H (4-34) U/L Alkaline Phosphatase 91 (38-126) U/L Troponin I (0.000-0.034) ng/mL Total Protein 6.4 (6.3-8.2) g/dL Albumin 4.1 (3.5-5.0) g/dL Lipase 158 (23-300) U/L Urine Color Light Yellow Urine Appearance Clear (Clear) Urine pH 5.5 (5.0-8.0) Ur Specific [place] 1.017 (1.001-1.035) Urine Protein Negative (Negative) Urine Glucose (UA) Negative (Negative) Urine Ketones Negative (Negative) Urine Blood Negative (Negative) Urine Nitrite Negative (Negative) Urine Bilirubin Negative (Negative) Urine Urobilinogen <2.0 (<2.0) mg/dL Ur Leukocyte Esterase Large H (Negative) Urine RBC 2 (0-5) /hpf Urine WBC 21 H (0-5) /hpf Ur Squamous Epith Cells 4 (0-4) /hpf Amorphous Sediment Rare H (None) /hpf Urine Bacteria Rare H (None) /hpf Urine HCG, Qual (Not Detectd) 06/06/21 06/06/21 06/06/21 Range/Units 20:00 20:00 20:00 WBC (3.8-10.6) k/uL RBC (3.80-5.40) m/uL Hgb (11.4-16.0) gm/dL Hct (34.0-46.0) % MCV (80.0-100.0) fL MCH (25.0-35.0) pg MCHC (31.0-37.0) g/dL RDW (11.5-15.5) % Plt Count (150-450) k/uL MPV Neutrophils % % Lymphocytes % % Monocytes % % Eosinophils % % Basophils % % Neutrophils # (1.3-7.7) k/uL Lymphocytes # (1.0-4.8) k/uL Monocytes # (0-1.0) k/uL Eosinophils # (0-0.7) k/uL Basophils # (0-0.2) k/uL Sodium (137-145) mmol/L Potassium (3.5-5.1) mmol/L Chloride (98-107) mmol/L Carbon Dioxide (22-30) mmol/L Anion Gap mmol/L BUN (7-17) mg/dL Creatinine (0.52-1.04) mg/dL Est GFR (CKD-EPI)AfAm (>60 ml/min/1.73 sqM) Est GFR (CKD-EPI)NonAf (>60 ml/min/1.73 sqM) Glucose (74-99) mg/dL Plasma Lactic Acid Dionte <0.5 L (0.7-2.0) mmol/L Calcium (8.4-10.2) mg/dL Total Bilirubin (0.2-1.3) mg/dL AST (14-36) U/L ALT (4-34) U/L Alkaline Phosphatase (38-126) U/L Troponin I <0.012 (0.000-0.034) ng/mL Total Protein (6.3-8.2) g/dL Albumin (3.5-5.0) g/dL Lipase (23-300) U/L Urine Color Urine Appearance (Clear) Urine pH (5.0-8.0) Ur Specific [place] (1.001-1.035) Urine Protein (Negative) Urine Glucose (UA) (Negative) Urine Ketones (Negative) Urine Blood (Negative) Urine Nitrite (Negative) Urine Bilirubin (Negative) Urine Urobilinogen (<2.0) mg/dL Ur Leukocyte Esterase (Negative) Urine RBC (0-5) /hpf Urine WBC (0-5) /hpf Ur Squamous Epith Cells (0-4) /hpf Amorphous Sediment (None) /hpf Urine Bacteria (None) /hpf Urine HCG, Qual Not Detected (Not Detectd) - EKG Data -: EKG Interpreted by Me EKG Comments: EKG obtained in 192 shows sinus bradycardia at a ventricular rate of 57, NV interval 142, QR pentecostalism 80, QT 456, QTc 443. No evidence of ST elevation or depression. - Radiology Data Radiology results: report reviewed, image reviewed Ultrasound of the right upper quadrant was obtained. Report reviewed in its entirety. Impression by Dr. Young shows no acute abnormality of the limited abdominal ultrasound. Disposition Clinical Impression: Abdominal pain Disposition: HOME SELF-CARE Condition: Good Instructions (If sedation given, give patient instructions): Abdominal Pain (E D) Additional Instructions: Start taking your home pepcid/carafate. Call Dr. Ardon for further instruction. Return to the emergency department for any new, worsening, or concerning symptoms. Is patient prescribed a controlled substance at d/c from ED?: No Referrals: Khadar Cantu MD [Primary Care Provider] - 1-2 days Time of Disposition: 21:59
[2021-06-06 20:12] LABS: Basophils # (A) 0.1 k/uL (0-0.2); Basophils % (A) 1 %; Eosinophils # (A) 0.1 k/uL (0-0.7); Eosinophils % (A) 2 %; HCT 38.3 % (34.0-46.0); HGB 13.1 gm/dL (11.4-16.0); Lymphocytes # (A) 2.9 k/uL (1.0-4.8); Lymphocytes % (A) 47 %; MCH 32.1 pg (25.0-35.0); MCHC 34.1 g/dL (31.0-37.0); MCV 94.3 fL (80.0-100.0); Mean Platelet Volume 7.5; Monocytes # (A) 0.3 k/uL (0-1.0); Monocytes % (A) 4 %; Neutrophils # (A) 2.7 k/uL (1.3-7.7); Neutrophils % (A) 43 %; Platelet Count 243 k/uL (150-450); RBC 4.06 m/uL (3.80-5.40); RDW 13.1 % (11.5-15.5); WBC 6.1 k/uL (3.8-10.6)
[2021-06-06 20:16] LABS: Amorphous Sediment,Urine Rare /hpf; Appearance,Urine Clear (Clear); Bacteria,Urine Rare /hpf; Bilirubin,Urine Negative (Negative); Blood,Urine Negative (Negative); Color,Urine Light Yellow; Glucose,Urine (UA) Negative (Negative); Ketones,Urine Negative (Negative); Leukocyte Esterase,Urine Large (Negative); Nitrite,Urine Negative (Negative); PH, Urine 5.5 (5.0-8.0); Protein,Urine Negative (Negative); RBC,Urine 2 /hpf (0-5); Specific Gravity,Urine 1.017 (1.001-1.035); Squamous Epithelial Cell,Urine 4 /hpf (0-4); Urobilinogen,Urine <2.0 mg/dL (<2.0); WBC,Urine 21 /hpf (0-5)
[2021-06-06 20:21] LABS: ALT 130 U/L (4-34); AST 86 U/L (14-36); African American GFR (CKD) >90 (>60 ml/min/1.73 sqM); Albumin 4.1 g/dL (3.5-5.0); Alkaline Phosphatase 91 U/L (38-126); Anion Gap 8 mmol/L; Blood Urea Nitrogen 23 mg/dL (7-17); Calcium 9.5 mg/dL (8.4-10.2); Carbon Dioxide 27 mmol/L (22-30); Chloride 101 mmol/L (98-107); Glucose 87 mg/dL (74-99); Lipase 158 U/L (23-300); Non-African American GFR(CKD) >90 (>60 ml/min/1.73 sqM); Potassium 4.5 mmol/L (3.5-5.1); Sodium 136 mmol/L (137-145); Total Bilirubin 0.3 mg/dL (0.2-1.3); Total Protein 6.4 g/dL (6.3-8.2)
--- NOTE | 2021-06-06 21:40 | US ---
EXAMINATION TYPE: US abdomen limited DATE OF EXAM: 06/06/2021 COMPARISON: 02/14/2021 CLINICAL HISTORY: Upper abd pain; elevated LFTs. Pain EXAM MEASUREMENTS: Liver Length: 16.6 cm Gallbladder Wall: 0.1 cm CBD: 0.5 cm Right Kidney: 10.1 x 5.1 x 3.9 cm Pancreas: wnl Liver: wnl Gallbladder: wnl Evidence for sonographic Johns's sign: neg CBD: wnl Right Kidney: No hydronephrosis or masses seen IMPRESSION: No acute abnormality of the limited abdominal ultrasound.
[2021-06-06 22:36] VITALS: BP 100/85; PULSE 60; TEMP 97.8
== END 2021-06-06 22:35 | disposition home or self-care (01) ==
LOC: EC 19:10
DX: R10.12 Left upper quadrant pain (principal); R07.81 Pleurodynia; R11.0 Nausea; R79.89 Other specified abnormal findings of blood chemistry; J45.990 Exercise induced bronchospasm; E11.9 Type 2 diabetes mellitus without complications; K21.9 Gastro-esophageal reflux disease without esophagitis; M19.90 Unspecified osteoarthritis, unspecified site; Z87.891 Personal history of nicotine dependence
CPT/HCPCS: 36415; 93005; 80053; 83605; 83690; 84484; 85025; 81001; 81025; 87086; 76705; 99284; 96374; 96375; 96361; J2405; J2270

== ENCOUNTER 2021-06-10 06:36 | Day surgery (SDC) | payer BC ==
[2021-06-05 10:55] VITALS: BMI 21.2
[~2021-06-10 06:36] MED LIST changes: -LIDOCAINE 1% (10MG/ML) FOR IV START INTRADERMA PRN
[2021-06-10 07:04] VITALS: RESP 16; TEMP 98.2
[2021-06-10] MEDS ORDERED: LIDOCAINE 1% (10MG/ML) FOR IV START INTRADERMA ONE (07:14)
--- NOTE | 2021-06-10 07:39 | P.GSHP ---
History of Present Illness H&P Date: 06/10/21 CHIEF COMPLAINT: GERD and colon screen HISTORY OF PRESENT ILLNESS: The patient is a 50-year-old female who presents with gastroesophageal reflux disease and need for colon screen. Upper and lower endoscopy were offered for further evaluation and management. PAST MEDICAL HISTORY: Please see list. PAST SURGICAL HISTORY: Please see list. MEDICATIONS: Please see list. ALLERGIES: Please see list. SOCIAL HISTORY: No illicit drug use FAMILY HISTORY: No reports of Crohn disease or ulcerative colitis. REVIEW OF ORGAN SYSTEMS: CONSTITUTIONAL: No reports of fevers or chills. GI: Denies any blood in stools or constipation. PHYSICAL EXAM: VITAL SIGNS: Stable GENERAL: Well-developed pleasant in no acute distress. HEENT: No scleral icterus. Extraocular movements grossly intact. Moist buccal mucosa. NECK: Supple without lymphadenopathy. CHEST: Unlabored respirations. Equal bilateral excursions. CARDIOVASCULAR: Regular rate and rhythm. Distal 2+ pulses. ABDOMEN: Soft, nondistended. MUSCULOSKELETAL: No clubbing, cyanosis, or edema. ASSESSMENT: 1. Gastroesophageal reflux disease 2. Colon screen. PLAN: 1. Recommend proceeding with an upper and lower endoscopy Past Medical History Past Medical History: Asthma, Diabetes Mellitus, GERD/Reflux, Osteoarthritis (OA) Additional Past Medical History / Comment(s): HX SVT, EXERCISE INDUCED ASTHMA, CONSTIPATION, ARTHRITIS IN BACK & KNEES, HX BORDERLINE DIABETES, A1C normal now. Acid reflux resolved. pt has essure device for contraception History of Any Multi-Drug Resistant Organisms: None Reported Past Surgical History: Bariatric Surgery, Orthopedic Surgery, Uterine Ablation Additional Past Surgical History / Comment(s): Leep surgery, ACL repair, Sleeve. Past Anesthesia/Blood Transfusion Reactions: Family History of Problems w/ Anesthesia, Motion Sickness Additional Past Anesthesia/Blood Transfusion Reaction / Comment(s): Mom has difficulty waking up. Past Psychological History: Anxiety, Depression Smoking Status: Former smoker Past Alcohol Use History: None Reported Past Drug Use History: None Reported - Past Family History Mother Family Medical History: Cancer Additional Family Medical History / Comment(s): BREAST CANCER, noncancerous brain tumors. Medications and Allergies Home Medications Medication Instructions Recorded Confirmed Type Calcium Carbonate [Calcium] 600 mg PO DIRECTED 07/25/20 06/06/21 History Multivitamin [Multivitamins Adult 1 tab PO DIRECTED 07/25/20 06/06/21 History Gummies] FLUoxetine HCL [PROzac] 20 mg PO HS 10/31/20 06/10/21 History Biotin 5 mg PO DIRECTED 06/05/21 06/06/21 History Cholecalciferol [Vitamin D3 (25 250 mcg PO DIRECTED 06/06/21 06/10/21 History Mcg = 1000 Iu)] Linaclotide [Linzess] 290 mcg PO DAILY PRN 06/06/21 06/10/21 History Vitamin A [Vitamin A (8,000 Units 2,400 mcg PO DIRECTED 06/06/21 06/10/21 History = 2,400 MCG)] Allergies Allergy/AdvReac Type Severity Reaction Status Date / Time No Known Allergies Allergy Verified 06/06/21 21:35 Surgical - Exam Vital Signs Temp Pulse Resp BP Pulse Ox 98.2 F 61 16 99/60 100 06/10/21 07:01 06/10/21 07:01 06/10/21 07:01 06/10/21 07:01 06/10/21 07:01
[2021-06-10] MEDS ORDERED: LIDOCAINE 1% INJ 10MG/ML (20 ML MDV) ONE (07:40)
[2021-06-10] MEDS ORDERED: PROPOFOL 10 MG/ML 20 ML VIAL IV ONE (07:40)
--- NOTE | 2021-06-10 07:58 | P.PCN ---
Date of Procedure: 06/10/21 Description of Procedure: PREOPERATIVE DIAGNOSIS: Dysphagia. Epigastric abdominal pain. POSTOPERATIVE DIAGNOSIS: Dysphagia. Epigastric abdominal pain. 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 SURGEON: Flora Ardon MD ANESTHESIA: MAC. INDICATIONS: The patient is a 50-year-old female who presents with a history of dysphagia and epigastric abdominal pain. Benefits and risks of the procedure were described. Informed consent was obtained. DESCRIPTION: The patient was brought into the endoscopy suite and laid in the left lateral decubitus position. After a timeout was confirmed, the procedure was initiated. An Olympus gastroscope was passed along the posterior oropharynx down to the distal esophagus where the squamocolumnar junction was unremarkable. The gastric pouch was entered. A gastrojejunal stricture of 8 mm was found as the adult gastroscope was 9.5 mm in size. A Giftah balloon dilator was placed through the scope. Final insufflation up to 15 mm was performed with a total of 2 minutes. The scope was advanced up to 60 cm from the incisors into the Reanna limb. The mucosa of the gastrojejunal anastomosis was intact. However chronic gastrojejunal marginal ulcer was encountered. No full-thickness injury was encountered. The GI tract was desufflated. The patient tolerated the procedure well. FINDINGS: Stricture of approximately 8 mm encountered. Chronic gastrojejunal ulceration encountered. Successful balloon dilatation to 15 mm. Gastric pouch 5 cm. RECOMMENDATIONS: 1. Start combined therapy of Carafate and omeprazole of at least 4 weeks. 2. Repeat upper endoscopy with balloon dilation in 4 weeks
[2021-06-10 08:24] VITALS: PULSE 55
[2021-06-10 08:38] VITALS: BP 95/63
--- NOTE | 2021-06-10 08:53 | P.PCN ---
Date of Procedure: 06/10/21 Description of Procedure: PREOPERATIVE DIAGNOSIS: Colonoscopy screening. POSTOPERATIVE DIAGNOSIS: Colonoscopy screening. Internal/external hemorrhoids grade 3 OPERATION: Colonoscopy to the ascending colon SURGEON: Flora Ardon MD. ANESTHESIA: MAC. INDICATIONS: The patient is a 50-year-old female who presents for colonoscopy screening. Benefits and risks were described and informed consent was obtained. DESCRIPTION OF PROCEDURE: The patient had undergone Sutab prep. The patient had been brought into the operating room and laid in the left lateral decubitus position. After adequate intravenous sedation, the rectum was examined with 2% lidocaine jelly. External hemorrhoids were encountered. The rectal tone was within normal limits. No lesions were palpated in the rectal vault. An Olympus colonoscope was advanced to the ascending colon. The prep was good. No scattered diverticulosis was encountered. No colonic polyps were found. Highly redundant sigmoid colon was found. No evidence of focal colitis was found. Retroflexion of the scope demonstrated grade 3 internal hemorrhoids without active bleeding or inflammation. The colon was desufflated. The patient had tolerated the procedure well. Withdrawal time was over 6 minutes. FINDINGS: Aronchick preparation quality scale 2 (1-5) Internal hemorrhoids, grade 3 External prolapsed hemorrhoids. No arteriovenous malformations. No adenomatous polyps. No focal colitis. RECOMMENDATIONS: Lower endoscopy in 5 years, 2025 May benefit from Cologaurd Plan - Discharge Summary Discharge Rx Participant: No New Discharge Prescriptions: New Omeprazole [PriLOSEC] 40 mg PO DAILY #90 cap Sucralfate [Carafate] 1 gm PO BID #30 tablet Continue Multivitamin [Multivitamins Adult Gummies] 1 tab PO DIRECTED Calcium Carbonate [Calcium] 600 mg PO DIRECTED FLUoxetine HCL [PROzac] 20 mg PO HS Vitamin A [Vitamin A (8,000 Units = 2,400 MCG)] 2,400 mcg PO DIRECTED Cholecalciferol [Vitamin D3 (25 Mcg = 1000 Iu)] 250 mcg PO DIRECTED Biotin 5 mg PO DIRECTED Linaclotide [Linzess] 290 mcg PO DAILY PRN PRN Reason: IBS Discharge Medication List Calcium Carbonate [Calcium] 600 mg PO DIRECTED 07/25/20 [History] Multivitamin [Multivitamins Adult Gummies] 1 tab PO DIRECTED 07/25/20 [History] FLUoxetine HCL [PROzac] 20 mg PO HS 10/31/20 [History] Biotin 5 mg PO DIRECTED 06/05/21 [History] Cholecalciferol [Vitamin D3 (25 Mcg = 1000 Iu)] 250 mcg PO DIRECTED 06/06/21 [History] Linaclotide [Linzess] 290 mcg PO DAILY PRN 06/06/21 [History] Vitamin A [Vitamin A (8,000 Units = 2,400 MCG)] 2,400 mcg PO DIRECTED 06/06/21 [History] Omeprazole [PriLOSEC] 40 mg PO DAILY #90 cap 06/10/21 [Rx] Sucralfate [Carafate] 1 gm PO BID #30 tablet 06/10/21 [Rx] [facility]Ref[place] [facility] [place] [place] - [facility]19[facility]21 Patient Instructions/Handouts: Esophageal Dilation (DC), Colonoscopy (DC), *Surgery [facility] - (Anesthesia) Endoscopy Discharge Instructions Activity/Diet/Wound Care/Special Instructions: Repeat upper endoscopy in 4 weeks. Repeat colonoscopy in 5 years, 2025 Discharge Disposition: HOME SELF-CARE
== END 2021-06-10 09:20 | disposition home or self-care (01) ==
LOC: ORWHC2ENDO 06:36
PROVIDERS: ATTEND Surgery Plastic and Reconstructive Surgery
DX: Z12.11 Encounter for screening for malignant neoplasm of colon (principal); R13.10 Dysphagia, unspecified; K64.8 Other hemorrhoids; K64.4 Residual hemorrhoidal skin tags; E11.9 Type 2 diabetes mellitus without complications; F32.9 Major depressive disorder, single episode, unspecified; F41.9 Anxiety disorder, unspecified; J45.990 Exercise induced bronchospasm; K58.9 Irritable bowel syndrome, unspecified; M19.90 Unspecified osteoarthritis, unspecified site; Z80.3 Family history of malignant neoplasm of breast; Z87.891 Personal history of nicotine dependence; K21.9 Gastro-esophageal reflux disease without esophagitis
CPT/HCPCS: 43245; 81025; J2001; J2704; C1726 ×2; G0121

== ENCOUNTER → 2022-01-25 | Outpatient (CLI) | payer BC ==
[2022-01-25 17:15] LABS: HCT 42.7 % (37.2-46.3); HGB 13.3 g/dL (12.0-15.0); MCH 29.9 pg (27.0-32.0); MCHC 31.1 g/dL (32.0-37.0); Mean Platelet Volume 10.5 fL (9.5-12.2); NRBC Per 100 WBC 0 /100 WBCS (0.0-0.0); Platelet Count 229 X 10*3/uL (140-440); RBC 4.45 X 10*6/uL (4.10-5.20); RDW 12.1 % (11.5-14.5); WBC 4.64 X 10*3/uL (4.50-10.00)
[2022-01-25 17:54] LABS: % Iron Saturation 32.28 (12.00-45.00); ALT 52 U/L (8-44); AST 36 U/L (13-35); African American GFR (CKD) 117.9 (60.0-200.0); Albumin 4.5 g/dL (3.8-4.9); Albumin/Globulin Ratio 2.05 (1.60-3.17); Alkaline Phosphatase 111 U/L (41-126); BUN/Creat Ratio 28.86 Ratio (12.00-20.00); Blood Urea Nitrogen 20.2 mg/dL (9.0-27.0); Calcium 9.8 mg/dL (8.7-10.3); Carbon Dioxide 27.6 mmol/L (20.0-27.5); Chloride 106 mmol/L (96-109); Chol/HDL Ratio 2.68 Ratio; Globulin 2.2 g/dL (1.6-3.3); Glucose 88 mg/dL (70-110); Iron 122 ug/dL (50-170); LDL Cholesterol,Calculated 117.9 mg/dL (0.0-131.0); Non-African American GFR(CKD) 101.7 (60.0-200.0); Potassium 4.6 mmol/L (3.5-5.5); Sodium 145 mmol/L (135-145); Total Iron Binding Capacity 378 ug/dL (228-460); Total Protein 6.7 g/dL (6.2-8.2); VLDL Calculation 13.66 mg/dL (5.00-40.00)
== END | disposition home or self-care (01) ==
LOC: LABWHC1 09:30
PROVIDERS: ATTEND Family Medicine
DX: Z00.00 Encounter for general adult medical examination without abnormal findings (principal); Z98.84 Bariatric surgery status
CPT/HCPCS: 36415; 80053; 80061; 82306; 82607; 82728; 83036; 83540; 83550; 83970; 85027

== ENCOUNTER → 2022-02-19 | Outpatient (CLI) | payer BC ==
[2022-02-19 17:03] VITALS: BP 104/66; PULSE 66; RESP 12; TEMP 98.3; BMI 23.5
--- NOTE | 2022-02-19 17:34 | P.BASOAP ---
Subjective Progress Note Date: 02/19/22 DATE OF SERVICE: 02/19/2022 CHIEF COMPLAINT: Status post gastric bypass HISTORY OF PRESENT ILLNESS: Emi Freitas is a 51-year-old female who is status post gastric bypass, 04/30/20. She is 2 years out. She looks great. She has reports burning of the esophagus including heartburn and occasional dysphagia to textured foods. At height of 5 feet 2.75 inches, her ideal body weight is 135 pounds. Highest weight 216 pounds, BMI 38.6. She comes in 128 pounds from 120 pounds, 10 months ago. She has gained 8 pounds in 10 months. Her body mass index is improved from 38.6 to 23.5. She has lost 88 pounds lifetime. Her lifetime percent excess weight loss is 108 %. PAST MEDICAL HISTORY: 1. Morbid obesity due to excess calories 2. Body mass index of 36.7, initial 3. Depressive disorder 4. Gastroesophageal reflux disease 5. Osteoarthritis of the hips. 6. Osteoarthritis of the knees. 7. Osteoarthritis of the lower back. PAST SURGICAL HISTORY: 1. Diagnostic laparoscopy 2. Upper endoscopy HOME MEDICATIONS: Home Medications Medication Instructions Recorded Confirmed Calcium Carbonate [Calcium] 600 mg PO DAILY 07/25/20 02/26/22 Multivitamin [Multivitamins Adult 1 tab PO DAILY 07/25/20 02/26/22 Gummies] Biotin 5 mg PO DAILY 06/05/21 02/26/22 Cholecalciferol [Vitamin D3 (25 250 mcg PO DAILY 06/06/21 02/26/22 Mcg = 1000 Iu)] Linaclotide [Linzess] 290 mcg PO DAILY PRN 06/06/21 02/26/22 Vitamin A [Vitamin A (8,000 Units 2,400 mcg PO DAILY 06/06/21 02/26/22 = 2,400 MCG)] Desvenlafaxine Succinate [Pristiq] 50 mg PO HS 01/30/22 02/26/22 Previous Rx's Medication Instructions Recorded Omeprazole [PriLOSEC] 40 mg PO BID #90 cap 02/03/22 Sucralfate [Carafate] 1 gm PO BID #120 tablet 02/19/22 ALLERGIES: Allergies Allergy/AdvReac Type Severity Reaction Status Date / Time No Known Allergies Allergy Verified 02/26/22 15:32 SOCIAL HISTORY: Past tobacco use. She has a Master's degree. FAMILY HISTORY: No family history of ulcerative colitis disease or Crohn's disease. Family history of morbid obesity. No lupus in the family. No reports of stomach or esophageal cancer. She has family history of breast cancer. Her mother had DVT. No lupus or multiple sclerosis in the family. REVIEW OF ORGAN SYSTEMS: CONSTITUTIONAL: At height of 5 feet 2.75 inches, her ideal body weight is 135 pounds. Highest 216 pounds. BMI 38.6. HEENT: Denies any active troubles with vision or hearing. ENDOCRINE: No diabetes. No hypothyroidism. CARDIOVASCULAR: Past reports of palpitations or heart attacks or chest pain. RESPIRATORY:Resolved daytime somnolence. Has asthma. GASTROINTESTINAL: Denies any bright red blood per rectum. No constipation. MUSCULOSKELETAL: Osteoarthritis has improved globally. NEURO: No headaches. No seizure disorders. PSYCH: Has depression. No suicidal ideation. RHEUMATOLOGIC: No lupus. No rheumatoid arthritis. HEMATOLOGIC: No personal history of DVTs. SKIN: No rash. No skin cancer. PHYSICAL EXAM: VITAL SIGNS: Height 5 foot 2.75 inches, weight 128 pounds. BMI 21.4 Vital Signs Temp 98.3 F 02/19/22 16:11 Pulse 66 02/19/22 16:11 Resp 12 02/19/22 16:11 BP 104/66 02/19/22 16:11 Pulse Ox GENERAL: Well-developed in no acute distress. HEENT: No scleral icterus. Extraocular movements grossly intact. Hears conversational speech. No nasal drainage. NECK: Supple without lymphadenopathy. CHEST: Nonlabored respirations with equal bilateral excursions. CARDIOVASCULAR: Distal 2+ pulses. ABDOMEN: Soft, non-tender. MUSCULOSKELETAL: No clubbing, cyanosis. NEURO: No focal or lateralizing signs. Cranial nerves 2 through 12 grossly within normal limits. PSYCH: Appropriate affect. Alert and oriented to person, place and time. SKIN: Good skin turgor. Well perfused. LABS: Reviewed. LFTs elevated. EGD FINDINGS: Squamocolumnar junction unremarkable at 38 cm. Stricture of approximately 7 mm encountered. Chronic gastrojejunal ulceration encountered. Balloon dilatation to 12 mm. Diaphragmatic hiatus at 42 cm. Gastric pouch 4 cm. ASSESSMENT: 1. Morbid obesity due to excess calories 2. Body mass index of 38.6 to 23.5 3. Depressive disorder 4. Gastroesophageal reflux disease 5. Osteoarthritis of the hips. 6. Osteoarthritis of the knees. 7. Osteoarthritis of the lower back. 8. Dysphagia 9. Supraventricular tachycardia 10. Diabetes type 2, well controlled, new diagnosis 11. Secondary hyperparathyroidism 12. Vitamin D deficiency 13. Status post gastric bypass 14. Gastrojejunal ulcer 15. Vitamin A deficiency 16. Elevated LFTs PLAN: 1. She has occassional burning of the esophagus. Recommend repeat upper endoscopy. 2. Prescription for carafate 3. LFTs elevated. May benefit from ultrasound of gallbladder. 4. She is elevated risk for perforation with upper endoscopy. Objective - Vital Signs Vital signs: Vital Signs Temp 98.3 F 02/19/22 16:11 Pulse 66 02/19/22 16:11 Resp 12 02/19/22 16:11 BP 104/66 02/19/22 16:11 Pulse Ox Intake & Output 02/18/22 02/19/22 02/19/22 18:59 06:59 18:59 Weight 58.332 kg Assessment/Plan Plan: Date: 02/19/22 Initial Weight: 93.213 kg Initial BMI: 37.5 Current Weight: 58.332 kg Current BMI: 23.5 Type of Surgery: Total Volume in Band: Previous Volume: Volume Removed: Volume Added: Band Size:
== END ==
LOC: BARWHC3 16:11
PROVIDERS: ATTEND Surgery Plastic and Reconstructive Surgery
DX: E66.01 Morbid (severe) obesity due to excess calories (principal); Z68.23 Body mass index [BMI] 23.0-23.9, adult; F32.A Depression, unspecified; M16.0 Bilateral primary osteoarthritis of hip; M17.0 Bilateral primary osteoarthritis of knee; M47.9 Spondylosis, unspecified; R13.10 Dysphagia, unspecified; I47.1 Supraventricular tachycardia; E11.9 Type 2 diabetes mellitus without complications; E21.1 Secondary hyperparathyroidism, not elsewhere classified; E55.9 Vitamin D deficiency, unspecified; Z98.84 Bariatric surgery status; E50.9 Vitamin A deficiency, unspecified; K28.9 Gastrojejunal ulcer, unspecified as acute or chronic, without hemorrhage or perforation; R94.5 Abnormal results of liver function studies
CPT/HCPCS: 99211

== ENCOUNTER → 2022-03-03 | Day surgery (SDC) | payer BC ==
[2022-02-26 15:41] VITALS: BMI 22.6
[~2022-03-03] MED LIST changes: -LACTATED RINGERS 1,000 ML IV SCH; +LIDOCAINE 2% INJ 20 MG/ML (2 ML VIAL) ONE; +MIDAZOLAM 2 MG/2 ML VIAL ONE; +PROPOFOL 10 MG/ML 20 ML VIAL IV ONE; +fentaNYL (PF) 50 MCG/ML 2 ML AMP ONE
--- NOTE | 2022-03-03 20:36 | P.GSHP ---
History of Present Illness H&P Date: 03/03/22 CHIEF COMPLAINT: GERD HISTORY OF PRESENT ILLNESS: The patient is a 51-year-old female who presents reports gastroesophageal reflux disease and ulcers. Upper endoscopy was offered for further evaluation and management. PAST MEDICAL HISTORY: Please see list. PAST SURGICAL HISTORY: Please see list. MEDICATIONS: Please see list. ALLERGIES: Please see list. SOCIAL HISTORY: No illicit drug use FAMILY HISTORY: No reports of Crohn disease or ulcerative colitis. REVIEW OF ORGAN SYSTEMS: CONSTITUTIONAL: No reports of fevers or chills. GI: Denies any blood in stools or constipation. PHYSICAL EXAM: VITAL SIGNS: Stable GENERAL: Well-developed and pleasant in no acute distress. HEENT: No scleral icterus. Extraocular movements grossly intact. Moist buccal mucosa. NECK: Supple without lymphadenopathy. CHEST: Unlabored respirations. Equal bilateral excursions. CARDIOVASCULAR: Regular rate and rhythm. Distal 2+ pulses. ABDOMEN: Soft, nondistended. MUSCULOSKELETAL: No clubbing, cyanosis, or edema. ASSESSMENT: 1. Gastroesophageal reflux disease 2. Gastric ulcers PLAN: 1. Recommend proceeding with an upper endoscopy Past Medical History Past Medical History: Asthma, Diabetes Mellitus, GERD/Reflux, Osteoarthritis (OA) Additional Past Medical History / Comment(s): HX SVT, EXERCISE INDUCED ASTHMA, CONSTIPATION, ARTHRITIS IN BACK & KNEES, HX BORDERLINE DIABETES, A1C normal now. Acid reflux resolved. pt has essure device for contraception History of Any Multi-Drug Resistant Organisms: None Reported Past Surgical History: Bariatric Surgery, Orthopedic Surgery, Uterine Ablation Additional Past Surgical History / Comment(s): Leep surgery, LT ACL repair, ELOISA N Y. MULTIPLE EGD'S, Past Anesthesia/Blood Transfusion Reactions: Family History of Problems w/ Anesthesia, Motion Sickness Additional Past Anesthesia/Blood Transfusion Reaction / Comment(s): Mom has difficulty waking up. Smoking Status: Former smoker - Past Family History Mother Family Medical History: Cancer Additional Family Medical History / Comment(s): BREAST CANCER, noncancerous brain tumors. Medications and Allergies Home Medications Medication Instructions Recorded Confirmed Type Calcium Carbonate [Calcium] 600 mg PO DAILY 07/25/20 02/26/22 History Multivitamin [Multivitamins Adult 1 tab PO DAILY 07/25/20 02/26/22 History Gummies] Biotin 5 mg PO DAILY 06/05/21 02/26/22 History Cholecalciferol [Vitamin D3 (25 250 mcg PO DAILY 06/06/21 02/26/22 History Mcg = 1000 Iu)] Linaclotide [Linzess] 290 mcg PO DAILY PRN 06/06/21 02/26/22 History Vitamin A [Vitamin A (8,000 Units 2,400 mcg PO DAILY 06/06/21 02/26/22 History = 2,400 MCG)] Desvenlafaxine Succinate [Pristiq] 50 mg PO HS 01/30/22 02/26/22 History Omeprazole [PriLOSEC] 40 mg PO BID #90 cap 02/03/22 02/26/22 Rx Sucralfate [Carafate] 1 gm PO BID #120 tablet 02/19/22 02/26/22 Rx Allergies Allergy/AdvReac Type Severity Reaction Status Date / Time No Known Allergies Allergy Verified 02/26/22 15:32
--- NOTE | 2022-03-03 20:42 | P.PCN ---
Date of Procedure: 03/03/22 Description of Procedure: PREOPERATIVE DIAGNOSIS: Dysphagia. Gastric ulcers POSTOPERATIVE DIAGNOSIS: Dysphagia. Gastrojejunal stricture without chronic ulcer without perforation OPERATION: Esophagogastrojejunoscopy with balloon dilatation from 12 to 20 mm. SURGEON: Flora Ardon MD ANESTHESIA: MAC. INDICATIONS: The patient is a 51-year-old female who presents with a history of dysphagia and gastric ulcers. Benefits and risks of the procedure were described. Informed consent was obtained. DESCRIPTION: The patient was brought into the endoscopy suite and laid in the left lateral decubitus position. After a timeout was confirmed, the procedure was initiated. An Olympus gastroscope was passed along the posterior oropharynx down to the distal esophagus where the squamocolumnar junction was unremarkable. The gastric pouch was entered. A gastrojejunal stricture of 12 mm was found as the adult gastroscope was 9.5 mm in size. A [employer] balloon dilator was placed through the scope. Final insufflation up to 20 mm was performed with a total of 2 minutes. The scope was advanced up to 60 cm from the incisors into the Reanna limb. The mucosa of the gastrojejunal anastomosis was intact. Resolved chronic gastrojejunal marginal ulcer was encountered. No full-thickness injury was encountered. The GI tract was desufflated. The patient tolerated the procedure well. FINDINGS: Squamocolumnar junction unremarkable at 40 cm. Stricture of approximately 12 mm encountered. Resolved chronic gastrojejunal ulceration encountered. Successful balloon dilatation to 20 mm. Diaphragmatic hiatus at 40 cm. Gastric pouch 4 cm. RECOMMENDATIONS: Continue Carafate and omeprazole. Plan - Discharge Summary Discharge Rx Participant: No New Discharge Prescriptions: Continue Multivitamin [Multivitamins Adult Gummies] 1 tab PO DAILY Calcium Carbonate [Calcium] 600 mg PO DAILY Vitamin A [Vitamin A (8,000 Units = 2,400 MCG)] 2,400 mcg PO DAILY Cholecalciferol [Vitamin D3 (25 Mcg = 1000 Iu)] 250 mcg PO DAILY Desvenlafaxine Succinate [Pristiq] 50 mg PO HS Biotin 5 mg PO DAILY Linaclotide [Linzess] 290 mcg PO DAILY PRN PRN Reason: IBS Omeprazole [PriLOSEC] 40 mg PO BID #90 cap Sucralfate [Carafate] 1 gm PO BID #120 tablet Discharge Medication List Calcium Carbonate [Calcium] 600 mg PO DAILY 07/25/20 [History] Multivitamin [Multivitamins Adult Gummies] 1 tab PO DAILY 07/25/20 [History] Biotin 5 mg PO DAILY 06/05/21 [History] Cholecalciferol [Vitamin D3 (25 Mcg = 1000 Iu)] 250 mcg PO DAILY 06/06/21 [History] Linaclotide [Linzess] 290 mcg PO DAILY PRN 06/06/21 [History] Vitamin A [Vitamin A (8,000 Units = 2,400 MCG)] 2,400 mcg PO DAILY 06/06/21 [History] Desvenlafaxine Succinate [Pristiq] 50 mg PO HS 01/30/22 [History] Omeprazole [PriLOSEC] 40 mg PO BID #90 cap 02/03/22 [Rx] Sucralfate [Carafate] 1 gm PO BID #120 tablet 02/19/22 [Rx] Follow up Appointment(s[facility] [place] - As Needed Patient Instructions/Handouts: Esophageal Dilation (DC) Discharge Disposition: HOME SELF-CARE
== END | disposition home or self-care (01) ==
LOC: ORWHC2ENDO 07:17
PROVIDERS: ATTEND Surgery Plastic and Reconstructive Surgery
DX: K95.89 Other complications of other bariatric procedure (principal); K28.9 Gastrojejunal ulcer, unspecified as acute or chronic, without hemorrhage or perforation; R13.10 Dysphagia, unspecified; K21.9 Gastro-esophageal reflux disease without esophagitis; E11.9 Type 2 diabetes mellitus without complications; K59.00 Constipation, unspecified; J45.990 Exercise induced bronchospasm; M17.0 Bilateral primary osteoarthritis of knee; M47.819 Spondylosis without myelopathy or radiculopathy, site unspecified; Z98.84 Bariatric surgery status; Z87.891 Personal history of nicotine dependence; Z79.899 Other long term (current) drug therapy; Z98.890 Other specified postprocedural states; Z97.5 Presence of (intrauterine) contraceptive device; Z80.3 Family history of malignant neoplasm of breast
CPT/HCPCS: 81025; 43245; J2250; J3010; J2704; J2001; 43239

== ENCOUNTER → 2022-03-10 | Outpatient (CLI) | payer BC ==
[2022-03-11 08:26] VITALS: BMI 23.7
== END ==
LOC: BARWHC3 13:09
PROVIDERS: ATTEND Surgery Plastic and Reconstructive Surgery
DX: E66.01 Morbid (severe) obesity due to excess calories (principal); Z71.3 Dietary counseling and surveillance; Z68.23 Body mass index [BMI] 23.0-23.9, adult; Z87.891 Personal history of nicotine dependence
CPT/HCPCS: 97802

== ENCOUNTER → 2022-09-15 | Day surgery (SDC) | payer BC ==
[2022-09-11 14:28] VITALS: BMI 22.6
[~2022-09-15] MED LIST changes: +LACTATED RINGERS 1,000 ML IV ONE; +LACTATED RINGERS 1,000 ML IV SCH; -LIDOCAINE 2% INJ 20 MG/ML (2 ML VIAL) ONE; -MIDAZOLAM 2 MG/2 ML VIAL ONE; -fentaNYL (PF) 50 MCG/ML 2 ML AMP ONE
--- NOTE | 2022-09-15 04:57 | P.GSHP ---
History of Present Illness H&P Date: 09/15/22 CHIEF COMPLAINT: GERD HISTORY OF PRESENT ILLNESS: The patient is a 51-year-old female who presents reports gastroesophageal reflux disease and ulcers. Upper endoscopy was offered for further evaluation and management. PAST MEDICAL HISTORY: Please see list. PAST SURGICAL HISTORY: Please see list. MEDICATIONS: Please see list. ALLERGIES: Please see list. SOCIAL HISTORY: No illicit drug use FAMILY HISTORY: No reports of Crohn disease or ulcerative colitis. REVIEW OF ORGAN SYSTEMS: CONSTITUTIONAL: No reports of fevers or chills. GI: Denies any blood in stools or constipation. PHYSICAL EXAM: VITAL SIGNS: Stable GENERAL: Well-developed and pleasant in no acute distress. HEENT: No scleral icterus. Extraocular movements grossly intact. Moist buccal mucosa. NECK: Supple without lymphadenopathy. CHEST: Unlabored respirations. Equal bilateral excursions. CARDIOVASCULAR: Regular rate and rhythm. Distal 2+ pulses. ABDOMEN: Soft, nondistended. MUSCULOSKELETAL: No clubbing, cyanosis, or edema. ASSESSMENT: 1. Gastroesophageal reflux disease 2. Gastric ulcers PLAN: 1. Recommend proceeding with an upper endoscopy Past Medical History Past Medical History: Asthma, Diabetes Mellitus, GERD/Reflux, Osteoarthritis (OA) Additional Past Medical History / Comment(s): stomach pain,food feels like its getting stuck and vomiting, tolerating liquids,gastric ulcers HX SVT, EXERCISE INDUCED ASTHMA, CONSTIPATION, ARTHRITIS IN BACK & KNEES, HX BORDERLINE DIABETES, A1C normal now. Acid reflux resolved. pt has essure device for contraception History of Any Multi-Drug Resistant Organisms: None Reported Past Surgical History: Bariatric Surgery, Orthopedic Surgery, Uterine Ablation Additional Past Surgical History / Comment(s): Leep surgery, LT ACL repair, ELOISA N Y. MULTIPLE EGD'S w/ dilation Past Anesthesia/Blood Transfusion Reactions: Family History of Problems w/ Anesthesia, Motion Sickness Additional Past Anesthesia/Blood Transfusion Reaction / Comment(s): Mom has difficulty waking up. Smoking Status: Former smoker - Past Family History Mother Family Medical History: Cancer Additional Family Medical History / Comment(s): BREAST CANCER, noncancerous brain tumors. Medications and Allergies Home Medications Medication Instructions Recorded Confirmed Type Calcium Carbonate [Calcium] 600 mg PO DAILY 07/25/20 09/11/22 History Multivitamin [Multivitamins Adult 1 tab PO DAILY 07/25/20 09/11/22 History Gummies] Biotin 5 mg PO DAILY 06/05/21 09/11/22 History Cholecalciferol [Vitamin D3 (25 250 mcg PO DAILY 06/06/21 09/11/22 History Mcg = 1000 Iu)] Linaclotide [Linzess] 290 mcg PO DAILY PRN 06/06/21 09/11/22 History Vitamin A [Vitamin A (8,000 Units 2,400 mcg PO DAILY 06/06/21 09/11/22 History = 2,400 MCG)] Omeprazole [PriLOSEC] 40 mg PO BID #90 cap 02/03/22 09/11/22 Rx Sucralfate [Carafate] 1 gm PO BID #120 tablet 02/19/22 09/11/22 Rx FLUoxetine HCL [PROzac] 20 mg PO HS 09/11/22 09/11/22 History Allergies Allergy/AdvReac Type Severity Reaction Status Date / Time No Known Allergies Allergy Verified 09/11/22 14:20
[2022-09-15 07:35] LABS: Glucose,Whole Blood 84 mg/dL (70-110)
[2022-09-15 07:37] VITALS: TEMP 97.6
[2022-09-15 07:55] VITALS: PULSE 59
--- NOTE | 2022-09-15 07:57 | P.PCN ---
Date of Procedure: 09/15/22 Description of Procedure: PREOPERATIVE DIAGNOSIS: Dysphagia. Nausea with vomiting. Gastroesophageal reflux disease POSTOPERATIVE DIAGNOSIS: Dysphagia. Gastroesophageal reflux disease Gastrojejunal stricture without chronic ulcer without perforation OPERATION: Esophagogastrojejunoscopy with balloon dilatation from 10 to 18 mm. Esophagogastrojejunoscopy with cold biopsy, gastric pouch SURGEON: Flora Ardon MD ANESTHESIA: MAC. INDICATIONS: The patient is a 51-year-old female who presents with a history of dysphagia and gastroesophageal reflux disease. Benefits and risks of the procedure were described. Informed consent was obtained. DESCRIPTION: The patient was brought into the endoscopy suite and laid in the left lateral decubitus position. After a timeout was confirmed, the procedure was initiated. An Olympus gastroscope was passed along the posterior oropharynx down to the distal esophagus where the squamocolumnar junction was unremarkable. The gastric pouch was entered. A gastrojejunal stricture of 10 mm was found as the adult gastroscope was 9.5 mm in size. A [employer] balloon dilator was placed through the scope. Final insufflation up to 18 mm was performed with a total of 2 minutes. The scope was advanced up to 60 cm from the incisors into the Reanna limb. The mucosa of the gastrojejunal anastomosis was intact. Resolved chronic gastrojejunal marginal ulcer was encountered. No full-thickness injury was encountered. Cold forceps biopsies were obtained of the gastric pouch to assess for H. pylori gastritis. The GI tract was desufflated. The patient tolerated the procedure well. FINDINGS: Squamocolumnar junction unremarkable at 37 cm. Stricture of approximately 10 mm encountered. Resolved chronic gastrojejunal ulceration encountered. Successful balloon dilatation to 18 mm. Gastric pouch, 39-44 cm from the incisors to anastomosis, 5 cm RECOMMENDATIONS: Down grade from omeprazole 40 mg twice a day 2 omeprazole 40 mg daily May discontinue Carafate Follow-up in 2 weeks for symptom management Upper endoscopy as needed. Plan - Discharge Summary Discharge Rx Participant: No New Discharge Prescriptions: New Omeprazole [PriLOSEC] 40 mg PO DAILY #90 cap Continue Multivitamin [Multivitamins Adult Gummies] 1 tab PO DAILY Calcium Carbonate [Calcium] 600 mg PO DAILY Vitamin A [Vitamin A (8,000 Units = 2,400 MCG)] 2,400 mcg PO DAILY Cholecalciferol [Vitamin D3 (25 Mcg = 1000 Iu)] 250 mcg PO DAILY Biotin 5 mg PO DAILY Linaclotide [Linzess] 290 mcg PO DAILY PRN PRN Reason: IBS FLUoxetine HCL [PROzac] 20 mg PO HS Discontinued Omeprazole [PriLOSEC] 40 mg PO BID #90 cap Sucralfate [Carafate] 1 gm PO BID #120 tablet Discharge Medication List Calcium Carbonate [Calcium] 600 mg PO DAILY 07/25/20 [History] Multivitamin [Multivitamins Adult Gummies] 1 tab PO DAILY 07/25/20 [History] Biotin 5 mg PO DAILY 06/05/21 [History] Cholecalciferol [Vitamin D3 (25 Mcg = 1000 Iu)] 250 mcg PO DAILY 06/06/21 [History] Linaclotide [Linzess] 290 mcg PO DAILY PRN 06/06/21 [History] Vitamin A [Vitamin A (8,000 Units = 2,400 MCG)] 2,400 mcg PO DAILY 06/06/21 [History] FLUoxetine HCL [PROzac] 20 mg PO HS 09/11/22 [History] Omeprazole [PriLOSEC] 40 mg PO DAILY #90 cap 09/15/22 [Rx] Follow up Appointment(s)/Referral(s): [facility] [place] [[place]] - 09/24/22 Patient Instructions/Handouts: Esophageal Dilation (DC) Activity/Diet/Wound Care/Special Instructions: Warm beverages prior to eating recommended. Discharge Disposition: HOME SELF-CARE
[2022-09-15 08:18] VITALS: BP 111/60; RESP 16
== END | disposition home or self-care (01) ==
LOC: ORWHC2ENDO 06:48
PROVIDERS: ATTEND Surgery Plastic and Reconstructive Surgery
DX: K29.50 Unspecified chronic gastritis without bleeding (principal); K31.4 Gastric diverticulum; K21.9 Gastro-esophageal reflux disease without esophagitis; J45.909 Unspecified asthma, uncomplicated; E11.9 Type 2 diabetes mellitus without complications; M19.90 Unspecified osteoarthritis, unspecified site; Z98.84 Bariatric surgery status; Z98.890 Other specified postprocedural states; Z87.891 Personal history of nicotine dependence; Z80.3 Family history of malignant neoplasm of breast; Z79.899 Other long term (current) drug therapy; Z79.1 Long term (current) use of non-steroidal anti-inflammatories (NSAID); Z79.84 Long term (current) use of oral hypoglycemic drugs
CPT/HCPCS: 81025; 88305; 43239; 43245; J2704; C1726

== ENCOUNTER → 2022-10-10 | Outpatient (CLI) | payer BC ==
[2022-10-10 08:06] LABS: Partial Thromboplastin Time 23.9 sec (22.0-30.0); Prothrombin Time 10.7 sec (9.0-12.0)
[2022-10-10 10:41] LABS: HCT 39.7 % (37.2-46.3); HGB 12.9 g/dL (12.0-15.0); MCH 30.8 pg (27.0-32.0); MCHC 32.5 g/dL (32.0-37.0); MCV 94.7 fL (80.0-97.0); Mean Platelet Volume 10.1 fL (9.5-12.2); NRBC Per 100 WBC 0 /100 WBCS (0.0-0.0); Platelet Count 218 X 10*3/uL (140-440); RBC 4.19 X 10*6/uL (4.10-5.20); RDW 12.1 % (11.5-14.5); WBC 5.12 X 10*3/uL (4.50-10.00)
[2022-10-10 10:55] LABS: % Iron Saturation 23.54 (12.00-45.00); ALT 65 U/L (8-44); AST 40 U/L (13-35); African American GFR (CKD) 100.3 (60.0-200.0); Albumin 4.4 g/dL (3.8-4.9); Albumin/Globulin Ratio 1.76 (1.60-3.17); Alkaline Phosphatase 99 U/L (41-126); BUN/Creat Ratio 26.13 Ratio (12.00-20.00); Blood Urea Nitrogen 20.9 mg/dL (9.0-27.0); Calcium 9.9 mg/dL (8.7-10.3); Carbon Dioxide 29.2 mmol/L (20.0-27.5); Chloride 103 mmol/L (96-109); Ferritin 90.4 ng/mL (10.0-291.0); Globulin 2.5 g/dL (1.6-3.3); Glucose 91 mg/dL (70-110); Iron 89 ug/dL (50-170); Magnesium 2.1 mg/dL (1.5-2.4); Non-African American GFR(CKD) 86.6 (60.0-200.0); Phosphorus 4.8 mg/dL (2.4-5.1); Potassium 4.3 mmol/L (3.5-5.5); Sodium 141 mmol/L (135-145); Total Iron Binding Capacity 378 ug/dL (228-460); Total Protein 6.9 g/dL (6.2-8.2)
[2022-10-10 11:41] LABS: Chol/HDL Ratio 2.71 Ratio; LDL Cholesterol,Calculated 121.5 mg/dL (0.0-131.0); Prealbumin 20.2 mg/dL (18.0-42.0); VLDL Calculation 12.16 mg/dL (5.00-40.00)
== END | disposition home or self-care (01) ==
LOC: LABWHC1 07:11
PROVIDERS: ATTEND Surgery Plastic and Reconstructive Surgery
DX: E66.01 Morbid (severe) obesity due to excess calories (principal); D50.8 Other iron deficiency anemias; K91.2 Postsurgical malabsorption, not elsewhere classified; E44.0 Moderate protein-calorie malnutrition; E45 Retarded development following protein-calorie malnutrition; E55.9 Vitamin D deficiency, unspecified; K74.1 Hepatic sclerosis; N19 Unspecified kidney failure; T56.894A Toxic effect of other metals, undetermined, initial encounter; K50.90 Crohn's disease, unspecified, without complications
CPT/HCPCS: 36415; 80053; 80061; 82306; 82525; 82607; 82728; 82746; 83036; 83540; 83550; 83735; 83970; 84100; 84134; 84255; 84425; 84443; 84590; 84630; 85027; 85610; 85730

== ENCOUNTER 2022-10-23 11:14 | Emergency (ER) | payer BC ==
[2022-10-23 12:25] VITALS: RESP 16
[2022-10-23] MEDS ORDERED: SODIUM CHLORIDE 0.9% 1,000 ML IV STA (12:28)
[2022-10-23] MEDS ORDERED: MORPHINE SULFATE 4 MG/ML SYRINGE IV STA (12:28)
[2022-10-23] MEDS ORDERED: ONDANSETRON 4 MG/2 ML VIAL IVP STA (12:28)
[2022-10-23] MEDS ORDERED: PANTOPRAZOLE 40 MG/10 ML VIAL IVP STA (12:28)
--- NOTE | 2022-10-23 12:44 | ED ---
General Adult HPI - General Source: patient, RN notes reviewed, old records reviewed Mode of arrival: ambulatory <Rubin Ocampo - Last Filed: 10/23/22 15:12> <Richy Colmenares - Last Filed: 10/23/22 16:33> - General Chief complaint: Abdominal Pain Stated complaint: gallbladder attack Time Seen by Provider: 10/23/22 12:20 - History of Present Illness Initial comments: Patient is a 52-year-old female with past medical history that is remarkable for SVT, diabetes, asthma who presents emergency Department stating that she is having a gallbladder attack. Was told by her surgeon, Dr. Ardon in the emergency department when she is having this type of pain. She is having these episodes over the last 1-2 days. She states it is her typical gallbladder pain which is not right-sided but actually epigastric and left-sided abdominal pain. Endorses nausea but no episodes of emesis. No diarrhea. States she was due to have a ultrasound as well as a HIDA scan done over the next week or so, however does not believe she can wait that long. Presents for further evaluation at this time. Denies any brent chest pain. Does state some mild left shoulder discomfort. Denies any nausea, vomiting currently. Denies any fevers, chills, sick contacts. Denies diarrhea. Presents for further evaluation at this time. (Rubin Ocampo) - Related Data Home Medications Medication Instructions Recorded Confirmed Calcium Carbonate [Calcium] 600 mg PO HS 07/25/20 10/23/22 Cholecalciferol [Vitamin D3 (25 25 mcg PO DAILY 06/06/21 10/23/22 Mcg = 1000 Iu)] Vitamin A [Vitamin A (8,000 Units 2,400 mcg PO DAILY 06/06/21 10/23/22 = 2,400 MCG)] FLUoxetine HCL [PROzac] 20 mg PO HS 09/11/22 10/23/22 Multivit/Iron Sulf/Folic Acid 1 tab PO Q48H 10/23/22 10/23/22 [Multivitamin with Iron] Multivitamins, Thera [Multivitamin 1 tab PO Q48H 10/23/22 10/23/22 (formulary)] Omeprazole 20 mg PO DAILY PRN 10/23/22 10/23/22 Allergies Allergy/AdvReac Type Severity Reaction Status Date / Time No Known Allergies Allergy Verified 10/23/22 15:00 Review of Systems ROS Other: All systems not noted in ROS Statement are negative. <Rubin Ocampo - Last Filed: 10/23/22 15:12> ROS Other: All systems not noted in ROS Statement are negative. <Richy Colmenares - Last Filed: 10/23/22 16:33> ROS Statement: Those systems with pertinent positive or pertinent negative responses have been documented in the HPI. Review of Systems: CONST: Denies fever EYES: Denies blurry vision ENT: Denies nasal congestion C/V: Denies Chest pain RESP: Denies shortness of breath GI: Endorses abdominal pain : Denies dysuria SKIN: Denies rash. MSK: Denies joint pain. NEURO: Denies headache (Rubin Ocampo) Past Medical History Past Medical History: Asthma, Diabetes Mellitus, GERD/Reflux, Osteoarthritis (OA) Additional Past Medical History / Comment(s): stomach pain,food feels like its getting stuck and vomiting, tolerating liquids,gastric ulcers HX SVT, EXERCISE INDUCED ASTHMA, CONSTIPATION, ARTHRITIS IN BACK & KNEES, HX BORDERLINE DIABETES, A1C normal now. Acid reflux resolved. pt has essure device for contraception History of Any Multi-Drug Resistant Organisms: None Reported Past Surgical History: Bariatric Surgery, Orthopedic Surgery, Uterine Ablation Additional Past Surgical History / Comment(s): Leep surgery, LT ACL repair, ELOISA N Y. MULTIPLE EGD'S w/ dilation, scope for ulcer check Past Anesthesia/Blood Transfusion Reactions: Family History of Problems w/ Anesthesia, Motion Sickness Additional Past Anesthesia/Blood Transfusion Reaction / Comment(s): Mom has difficulty waking up. Past Psychological History: Anxiety, Depression Smoking Status: Former smoker Past Alcohol Use History: None Reported Past Drug Use History: None Reported - Past Family History Mother Family Medical History: Cancer Additional Family Medical History / Comment(s): BREAST CANCER, noncancerous brain tumors. <Rubin Ocampo - Last Filed: 10/23/22 15:12> General Exam <Rubin Ocampo - Last Filed: 10/23/22 15:12> - General Exam Comments Initial Comments: General: Appears in mild discomfort secondary to pain. HEAD: Normal with no signs of head trauma. EYES: PERRLA, EOMI, conjunctiva normal, no discharge. ENT: Hearing grossly intact, normal oropharynx. RESPIRATORY: Clear breath sounds bilaterally. No wheezes, rales, or rhonchi. C/V: Regular rate and rhythm. S1 and S2 auscultated, no edema, peripheral pulses 2+ and intact throughout ABD: Abdomen soft, nondistended. Mildly tender to palpation epigastric region, left upper quadrant. No guarding. No rebound tenderness. No peritoneal signs. EXT: Normal range of motion, no obvious deformity SKIN: No rashes or lesions observed on exposed skin. NEURO: Alert and oriented 4. (Rubin Ocampo) Course Vital Signs 10/23/22 10/23/22 10/23/22 11:27 12:20 13:58 Temperature 97.9 F 98.6 F Pulse Rate 61 73 69 Respiratory 14 16 16 Rate Blood Pressure 107/72 119/78 108/67 O2 Sat by Pulse 96 97 98 Oximetry Medical Decision Making - Lab Data Result diagrams: 10/23/22 12:47 10/23/22 12:47 - EKG Data -: EKG Interpreted by Dc <Rubin Ocampo - Last Filed: 10/23/22 15:12> - Lab Data Result diagrams: 10/23/22 12:47 10/23/22 12:47 <Richy Colmenares - Last Filed: 10/23/22 16:33> - Medical Decision Making Based on the patient's presentation and physical exam, I'm concerned for possible intra-abdominal pathology for current symptoms. States this is typical of her gallbladder pain in I'm concerned for possible cholecystitis or biliary colic but I cannot rule out the possibility of atypical ACS presentation as her pain is atypical for gallbladder pain. She is having epigastric and left-sided discomfort with some left shoulder involvement. Therefore we will obtain screening cardiac labs in addition to abdominal laboratory studies and a right upper quadrant ultrasound. She will be sent likely treatment with IV fluids, analgesia, antiemetics. She was in agreement this plan. Vital signs within acceptable limits. Patient's EKG shows no signs of acute ischemia. Troponin is undetectable. The remainder the patient's lavatory studies are remarkable for slightly elevated LFTs which are chronic for the patient. Patient's right upper quadrant ultrasound does reveal some biliary sludge, in addition to a dilated CBD of 0.8 cm. I discussed the case with patient's surgeon, Dr. Ardon who requested a CT abdomen and pelvis at this time. This was obtained and interpreted by myself as revealing no evidence of acute intra-abdominal process. Postsurgical changes are seen. On reevaluation, patient's pain is resolved. I updated her on her workup. We will recheck out to Dr. Ardon at this time for input on disposition. Patient signed out to Dr. Colmenares in stable condition. Dr. Ardon wants to come evaluate the patient to decide on disposition. (Rubin Ocampo) The patient has been seen and evaluated by Dr. Ardon. They're going to try a gallbladder diet and follow in the clinic. Appropriate further care and follow-up as well as return parameters were discussed. (Richy Colmenares) - Lab Data Lab Results 10/23/22 10/23/22 10/23/22 Range/Units 12:47 12:47 12:47 WBC 5.8 (3.8-10.6) k/uL RBC 4.29 (3.80-5.40) m/uL Hgb 13.4 (11.4-16.0) gm/dL Hct 39.8 (34.0-46.0) % MCV 92.8 (80.0-100.0) fL MCH 31.2 (25.0-35.0) pg MCHC 33.6 (31.0-37.0) g/dL RDW 12.4 (11.5-15.5) % Plt Count 221 (150-450) k/uL MPV 8.0 Neutrophils % 57 % Lymphocytes % 35 % Monocytes % 3 % Eosinophils % 1 % Basophils % 1 % Neutrophils # 3.3 (1.3-7.7) k/uL Lymphocytes # 2.0 (1.0-4.8) k/uL Monocytes # 0.2 (0-1.0) k/uL Eosinophils # 0.1 (0-0.7) k/uL Basophils # 0.1 (0-0.2) k/uL PT 10.9 (9.0-12.0) sec INR 1.0 (<1.2) APTT 22.9 (22.0-30.0) sec Sodium 138 (137-145) mmol/L Potassium 4.2 (3.5-5.1) mmol/L Chloride 105 (98-107) mmol/L Carbon Dioxide 26 (22-30) mmol/L Anion Gap 7 mmol/L BUN 23 H (7-17) mg/dL Creatinine 0.59 (0.52-1.04) mg/dL Est GFR (CKD-EPI)AfAm >90 (>60 ml/min/1.73 sqM) Est GFR (CKD-EPI)NonAf >90 (>60 ml/min/1.73 sqM) Glucose 91 (74-99) mg/dL Plasma Lactic Acid Dionte (0.7-2.0) mmol/L Calcium 9.2 (8.4-10.2) mg/dL Total Bilirubin 0.6 (0.2-1.3) mg/dL AST 52 H (14-36) U/L ALT 62 H (4-34) U/L Alkaline Phosphatase 107 (38-126) U/L Troponin I (0.000-0.034) ng/mL Total Protein 7.1 (6.3-8.2) g/dL Albumin 4.5 (3.5-5.0) g/dL Amylase 82 (30-110) U/L Lipase 166 (23-300) U/L 10/23/22 10/23/22 Range/Units 12:47 12:47 WBC (3.8-10.6) k/uL RBC (3.80-5.40) m/uL Hgb (11.4-16.0) gm/dL Hct (34.0-46.0) % MCV (80.0-100.0) fL MCH (25.0-35.0) pg MCHC (31.0-37.0) g/dL RDW (11.5-15.5) % Plt Count (150-450) k/uL MPV Neutrophils % % Lymphocytes % % Monocytes % % Eosinophils % % Basophils % % Neutrophils # (1.3-7.7) k/uL Lymphocytes # (1.0-4.8) k/uL Monocytes # (0-1.0) k/uL Eosinophils # (0-0.7) k/uL Basophils # (0-0.2) k/uL PT (9.0-12.0) sec INR (<1.2) APTT (22.0-30.0) sec Sodium (137-145) mmol/L Potassium (3.5-5.1) mmol/L Chloride (98-107) mmol/L Carbon Dioxide (22-30) mmol/L Anion Gap mmol/L BUN (7-17) mg/dL Creatinine (0.52-1.04) mg/dL Est GFR (CKD-EPI)AfAm (>60 ml/min/1.73 sqM) Est GFR (CKD-EPI)NonAf (>60 ml/min/1.73 sqM) Glucose (74-99) mg/dL Plasma Lactic Acid Dionte 0.6 L (0.7-2.0) mmol/L Calcium (8.4-10.2) mg/dL Total Bilirubin (0.2-1.3) mg/dL AST (14-36) U/L ALT (4-34) U/L Alkaline Phosphatase (38-126) U/L Troponin I <0.012 (0.000-0.034) ng/mL Total Protein (6.3-8.2) g/dL Albumin (3.5-5.0) g/dL Amylase (30-110) U/L Lipase (23-300) U/L - EKG Data EKG Comments: 12-lead Electrocardiogram Interpretation Note EKG was reviewed and interpreted by myself. 12-lead ECG performed at 1233 is interpreted by me as revealing sinus bradycardia at a rate of 56 beats per minute. [place] is normal. [place] interval is 150 ms, QRS duration is 84 ms, QTc is 428 milliseconds.. There were no ST or T wave abnormalities to suggest myocardial ischemia or injury. R wave progression across the precordium was satisfactory. By my interpretation this EKG is non-diagnostic for acute ischemia. When compared with EKG from May 2021, no significant change. (Rubin Ocampo) Disposition <Rubin Ocampo - Last Filed: 10/23/22 15:12> Is patient prescribed a controlled substance at d/c from ED?: No <Richy Colmenares - Last Filed: 10/23/22 16:33> Clinical Impression: Abdominal pain Disposition: HOME SELF-CARE Condition: Good Instructions (If sedation given, give patient instructions): Abdominal Pain (ED), Biliary Colic (ED) Referrals: Khadar Cantu MD [Primary Care Provider] - 1-2 days Flora Ardon MD [STAFF PHYSICIAN] - 1-2 days
[2022-10-23 13:07] LABS: Basophils # (A) 0.1 k/uL (0-0.2); Basophils % (A) 1 %; Eosinophils # (A) 0.1 k/uL (0-0.7); Eosinophils % (A) 1 %; HCT 39.8 % (34.0-46.0); HGB 13.4 gm/dL (11.4-16.0); Lymphocytes % (A) 35 %; MCH 31.2 pg (25.0-35.0); MCHC 33.6 g/dL (31.0-37.0); MCV 92.8 fL (80.0-100.0); Monocytes # (A) 0.2 k/uL (0-1.0); Monocytes % (A) 3 %; Neutrophils # (A) 3.3 k/uL (1.3-7.7); Neutrophils % (A) 57 %; Platelet Count 221 k/uL (150-450); RBC 4.29 m/uL (3.80-5.40); RDW 12.4 % (11.5-15.5); WBC 5.8 k/uL (3.8-10.6)
[2022-10-23 13:09] LABS: ALT 62 U/L (4-34); AST 52 U/L (14-36); African American GFR (CKD) >90 (>60 ml/min/1.73 sqM); Albumin 4.5 g/dL (3.5-5.0); Alkaline Phosphatase 107 U/L (38-126); Amylase 82 U/L (30-110); Anion Gap 7 mmol/L; Blood Urea Nitrogen 23 mg/dL (7-17); Calcium 9.2 mg/dL (8.4-10.2); Carbon Dioxide 26 mmol/L (22-30); Chloride 105 mmol/L (98-107); Glucose 91 mg/dL (74-99); Lipase 166 U/L (23-300); Non-African American GFR(CKD) >90 (>60 ml/min/1.73 sqM); Potassium 4.2 mmol/L (3.5-5.1); Sodium 138 mmol/L (137-145); Total Bilirubin 0.6 mg/dL (0.2-1.3); Total Protein 7.1 g/dL (6.3-8.2)
[2022-10-23 13:25] LABS: Partial Thromboplastin Time 22.9 sec (22.0-30.0); Prothrombin Time 10.9 sec (9.0-12.0)
--- NOTE | 2022-10-23 13:46 | US ---
EXAMINATION TYPE: US gallbladder DATE OF EXAM: 10/23/2022 COMPARISON: US, CT CLINICAL HISTORY: nausea and vomiting, gallbladder pain. Nausea and vomiting, pain. Hx gastric bypass . TECHNIQUE: Multiple sonographic images of the right upper quadrant are obtained. FINDINGS: EXAM MEASUREMENTS: Liver Length: 14.3 cm Gallbladder Wall: 0.28 cm CBD: 0.76 cm Right Kidney: 10.5 x 4.8 x 4.3 cm CLOTH LAYER NOTES: Exam is limited due to great amount of bowel gas. Pancreas: Duct measures 0.20 cm. Liver: Appears wnl Gallbladder: There appear to be internal echoes within the gallbladder, arrow shown in images. Evidence for sonographic Johns's sign: No CBD: *Appears dilated Right Kidney: No hydronephrosis or masses seen. *Limited due to gas. IMPRESSION: 1. Correlate for either gallbladder sludge or tiny stones. The CBD measures 8 mm and appears dilated for the patient's age. Distal CBD stone or pathology in the differential diagnosis.
--- NOTE | 2022-10-23 14:57 | CT ---
EXAMINATION TYPE: CT abdomen pelvis w con CT DLP: 622.4 mGycm, Automated exposure control for dose reduction was used. DATE OF EXAM: 10/23/2022 2:31 PM COMPARISON: CT abdomen pelvis most recent from 12/05/2019 CLINICAL INDICATION:Female, 52 years old with history of abd pain; TECHNIQUE: Axial CT of the abdomen and pelvis. Sagittal and coronal reformats were created on a [employer] workstation. Contrast used:100 mL of Isovue 300 with IV Contrast, Oral contrast used: without Oral Contrast FINDINGS: LOWER CHEST: Unremarkable ABDOMEN LIVER: Unremarkable GALLBLADDER AND BILE DUCTS: Unremarkable. PANCREAS: Unremarkable. SPLEEN: Unremarkable. ADRENAL GLANDS: Unremarkable. KIDNEYS AND URETERS: No evidence of hydronephrosis or renal calculus. The ureters are unremarkable. PELVIS BLADDER: Distended urinary bladder. REPRODUCTIVE: Bilateral tubal ligation devices bilaterally. ABDOMEN & PELVIS STOMACH AND BOWEL: No evidence of bowel obstruction. Postsurgical changes to the gastric lumen and di stal esophagus. Postsurgical changes to the small bowel with suture identified in the left abdomen. T here is a moderate amount stool throughout the colon. PERITONEUM: No evidence of pneumoperitoneum or free fluid. VASCULATURE: No evidence of aortic aneurysm. MUSCULOSKELETAL: No acute osseous abnormalities, mild multilevel disc degeneration changes. LYMPH NODES: No gross evidence for lymphadenopathy. SOFT TISSUE/ABDOMINAL WALL: Unremarkable IMPRESSION: Postsurgical changes to the gastric intestinal tract consistent with bariatric surgeries. There is no evidence for bowel obstruction or evidence of acute process in the abdomen.
[2022-10-23 16:43] VITALS: BP 116/69; PULSE 66; TEMP 97.8
--- NOTE | 2022-10-23 23:31 | P.GSCN ---
History of Present Illness Consult date: 10/23/22 History of present illness: In terms with severe quadrant abdominal pain after having protein shake, latte. Patient reports severe persistent right upper quadrant abdominal pain. After morphine, patient's pain improved. Diagnostic studies ultrasound review demonstrates gallbladder sludge. Computed tomography scan of the abdomen pelvis reviewed demonstrating moderate stool burden. Gastric bypass intact. No mesenteric swirl signs of internal hernia. As patient is improving, recommend trial of diet low fat. If tolerates, discharge home. Past Medical History Past Medical History: Asthma, Diabetes Mellitus, GERD/Reflux, Osteoarthritis (OA) Additional Past Medical History / Comment(s): stomach pain,food feels like its getting stuck and vomiting, tolerating liquids,gastric ulcers HX SVT, EXERCISE INDUCED ASTHMA, CONSTIPATION, ARTHRITIS IN BACK & KNEES, HX BORDERLINE DIABETES, A1C normal now. Acid reflux resolved. pt has essure device for contraception History of Any Multi-Drug Resistant Organisms: None Reported Past Surgical History: Bariatric Surgery, Orthopedic Surgery, Uterine Ablation Additional Past Surgical History / Comment(s): Leep surgery, LT ACL repair, ELOISA N Y. MULTIPLE EGD'S w/ dilation, scope for ulcer check Past Anesthesia/Blood Transfusion Reactions: Family History of Problems w/ Anesthesia, Motion Sickness Additional Past Anesthesia/Blood Transfusion Reaction / Comm: Mom has difficulty waking up. Past Psychological History: Anxiety, Depression Smoking Status: Former smoker Past Alcohol Use History: None Reported Past Drug Use History: None Reported - Past Family History Mother Family Medical History: Cancer Additional Family Medical History / Comment(s): BREAST CANCER, noncancerous brain tumors. Medications and Allergies Home Medications Medication Instructions Recorded Confirmed Type Calcium Carbonate [Calcium] 600 mg PO HS 07/25/20 10/23/22 History Cholecalciferol [Vitamin D3 (25 25 mcg PO DAILY 06/06/21 10/23/22 History Mcg = 1000 Iu)] Vitamin A [Vitamin A (8,000 Units 2,400 mcg PO DAILY 06/06/21 10/23/22 History = 2,400 MCG)] FLUoxetine HCL [PROzac] 20 mg PO HS 09/11/22 10/23/22 History Multivit/Iron Sulf/Folic Acid 1 tab PO Q48H 10/23/22 10/23/22 History [Multivitamin with Iron] Multivitamins, Thera [Multivitamin 1 tab PO Q48H 10/23/22 10/23/22 History (formulary)] Omeprazole 20 mg PO DAILY PRN 10/23/22 10/23/22 History Allergies Allergy/AdvReac Type Severity Reaction Status Date / Time No Known Allergies Allergy Verified 10/23/22 15:00 Surgical - Exam Vital Signs Temp Pulse Resp BP Pulse Ox 97.9 F 61 14 107/72 96 10/23/22 11:27 10/23/22 11:27 10/23/22 11:27 10/23/22 11:27 10/23/22 11:27 Results - Labs 10/23/22 12:47 10/23/22 12:47 Abnormal Lab Results - Last 24 Hours (Table) 10/23/22 10/23/22 Range/Units 12:47 12:47 BUN 23 H (7-17) mg/dL Plasma Lactic Acid Dionte 0.6 L (0.7-2.0) mmol/L AST 52 H (14-36) U/L ALT 62 H (4-34) U/L Diabetes panel 10/23/22 Range/Units 12:47 Sodium 138 (137-145) mmol/L Potassium 4.2 (3.5-5.1) mmol/L Chloride 105 (98-107) mmol/L Carbon Dioxide 26 (22-30) mmol/L BUN 23 H (7-17) mg/dL Creatinine 0.59 (0.52-1.04) mg/dL Glucose 91 (74-99) mg/dL Calcium 9.2 (8.4-10.2) mg/dL AST 52 H (14-36) U/L ALT 62 H (4-34) U/L Alkaline Phosphatase 107 (38-126) U/L Total Protein 7.1 (6.3-8.2) g/dL Albumin 4.5 (3.5-5.0) g/dL Calcium panel 10/23/22 Range/Units 12:47 Calcium 9.2 (8.4-10.2) mg/dL Albumin 4.5 (3.5-5.0) g/dL Pituitary panel 10/23/22 Range/Units 12:47 Sodium 138 (137-145) mmol/L Potassium 4.2 (3.5-5.1) mmol/L Chloride 105 (98-107) mmol/L Carbon Dioxide 26 (22-30) mmol/L BUN 23 H (7-17) mg/dL Creatinine 0.59 (0.52-1.04) mg/dL Glucose 91 (74-99) mg/dL Calcium 9.2 (8.4-10.2) mg/dL Adrenal panel 10/23/22 Range/Units 12:47 Sodium 138 (137-145) mmol/L Potassium 4.2 (3.5-5.1) mmol/L Chloride 105 (98-107) mmol/L Carbon Dioxide 26 (22-30) mmol/L BUN 23 H (7-17) mg/dL Creatinine 0.59 (0.52-1.04) mg/dL Glucose 91 (74-99) mg/dL Calcium 9.2 (8.4-10.2) mg/dL Total Bilirubin 0.6 (0.2-1.3) mg/dL AST 52 H (14-36) U/L ALT 62 H (4-34) U/L Alkaline Phosphatase 107 (38-126) U/L Total Protein 7.1 (6.3-8.2) g/dL Albumin 4.5 (3.5-5.0) g/dL
== END 2022-10-23 16:46 | disposition home or self-care (01) ==
LOC: EC 11:14
DX: R10.11 Right upper quadrant pain (principal); E11.9 Type 2 diabetes mellitus without complications; F32.A Depression, unspecified; F41.9 Anxiety disorder, unspecified; K21.9 Gastro-esophageal reflux disease without esophagitis; J45.909 Unspecified asthma, uncomplicated; Z79.899 Other long term (current) drug therapy; Z87.891 Personal history of nicotine dependence
CPT/HCPCS: 36415; 93005; 80053; 82150; 83605; 83690; 84484; 85025; 85610; 85730; 76705; 74177; 99285; 96374; 96375 ×2; 96361; J2270; J2405; C9113; Q9967

== ENCOUNTER 2022-10-30 10:18 | Day surgery (SDC) | payer BC ==
--- NOTE | 2022-10-30 06:11 | P.GSHP ---
History of Present Illness H&P Date: 10/30/22 CHIEF COMPLAINT: Cholecystitis HISTORY OF PRESENT ILLNESS: The patient is a 52-year-old female who presents with history of epigastric including right upper quadrant abdominal pain. She underwent diagnostic studies for her gallbladder. Separately her clinical picture was consistent with cholecystitis. Now she presents for surgical intervention. PAST MEDICAL HISTORY: Please see list PAST SURGICAL HISTORY: Please see list MEDICATIONS: Please see list ALLERGIES: Please see list SOCIAL HISTORY: Please see list FAMILY HISTORY: Please see list REVIEW OF ORGAN SYSTEMS: CONSTITUTIONAL: No reports of fevers or chills. HEENT: Denies any troubles with the vision or hearing. ENDOCRINE: No reports of hypothyroidism. No diabetes. RESPIRATORY: No recent pneumonias. CARDIOVASCULAR: Denies chest pain or palpitations GI: No blood in stools or constipation. MUSCULOSKELETAL: Has occasional joint pain including back pain. NEURO: No seizure disorders or headaches. No recent stroke. PSYCH: No depression or suicidal ideation. GENITOURINARY: No active blood in urine. No urinary hesitancy. HEMATOLOGIC: No personal or family history of DVTs or pulmonary emboli. SKIN: No skin cancer. PHYSICAL EXAM: VITAL SIGNS: Afebrile vital signs stable GENERAL: Well-developed pleasant in no acute distress. HEENT: No scleral icterus. Extraocular movements grossly intact. Moist buccal mucosa. NECK: Supple without lymphadenopathy. CHEST: Unlabored respirations. Equal bilateral excursions. CARDIOVASCULAR: Regular rate regular rhythm rhythm. Distal 2+ pulses. ABDOMEN: Soft, nondistended. Tender along the epigastrium and right upper quadrant. MUSCULOSKELETAL: No clubbing, cyanosis, or edema. NEURO: Cranial nerves II to XII within normal limits. No focal or lateralizing signs. PSYCH: Alert and oriented to person, place and time. SKIN: Well-perfused good skin turgor. ASSESSMENT: 1. Epigastric and right upper quadrant abdominal pain 2. Chronic cholecystitis 3. Symptomatic gallstones. PLAN: 1. Will need a robotic cholecystectomy possible open. Benefits and risks were described. 2. Heparin for DVT prophylaxis 5000 units. 3. Antibiotic prophylaxis. 4. CBC and CMP on day of procedure 5. Non-narcotic pre and post op pain management reviewed. 6. Indocyanine green for biliary imaging. Past Medical History Past Medical History: Asthma, GERD/Reflux, Osteoarthritis (OA) Additional Past Medical History / Comment(s): stomach pain,food feels like its getting stuck and vomiting had a stricture and was tx, HX gastric ulcers HX SVT monitored by Dr Flor, EXERCISE INDUCED ASTHMA, CONSTIPATION, ARTHRITIS IN BACK & KNEES, HX BORDERLINE DIABETES , A1C normal now for about 2 yrs, no meds no accuchecks any more. Acid reflux resolved. pt has essure device for contraception. recent abdominal pain. - gallbladder History of Any Multi-Drug Resistant Organisms: None Reported Past Surgical History: Bariatric Surgery, Orthopedic Surgery, Uterine Ablation Additional Past Surgical History / Comment(s): Leep surgery, LT ACL repair, ELOISA N Y. MULTIPLE EGD'S w/ dilation, scope for ulcer check Past Anesthesia/Blood Transfusion Reactions: Family History of Problems w/ Anesthesia, Motion Sickness Additional Past Anesthesia/Blood Transfusion Reaction / Comment(s): Mom has difficulty waking up. Smoking Status: Former smoker - Past Family History Mother Family Medical History: Cancer Additional Family Medical History / Comment(s): BREAST CANCER, noncancerous brain tumors. Medications and Allergies Home Medications Medication Instructions Recorded Confirmed Type Calcium Carbonate [Calcium] 600 mg PO HS 07/25/20 10/27/22 History Cholecalciferol [Vitamin D3 (25 25 mcg PO DAILY 06/06/21 10/27/22 History Mcg = 1000 Iu)] Vitamin A [Vitamin A (8,000 Units 2,400 mcg PO DAILY 06/06/21 10/27/22 History = 2,400 MCG)] FLUoxetine HCL [PROzac] 20 mg PO HS 09/11/22 10/27/22 History Multivit/Iron Sulf/Folic Acid 1 tab PO Q48H 10/23/22 10/27/22 History [Multivitamin with Iron] Multivitamins, Thera [Multivitamin 1 tab PO Q48H 10/23/22 10/27/22 History (formulary)] Omeprazole 20 mg PO DAILY PRN 10/23/22 10/27/22 History Allergies Allergy/AdvReac Type Severity Reaction Status Date / Time No Known Allergies Allergy Verified 10/27/22 12:39
[~2022-10-30 10:18] MED LIST changes: +ACETAMINOPHEN TAB 500 MG TAB PO STA; +GABAPENTIN 300 MG CAP PO STA; +HEPARIN SODIUM,PORCINE/PF 5,000 UNIT/0.5 ML SYRINGE SQ PRN; +INDOCYANINE GREEN 25 MG VIAL IV STA; -LACTATED RINGERS 1,000 ML IV SCH; -PROPOFOL 10 MG/ML 20 ML VIAL IV ONE; +SCOPOLAMINE 1 MG/72 HR PATCH TRANSDERM STA
[2022-10-30] MEDS ORDERED: ONDANSETRON 4 MG/2 ML VIAL ONE (10:23)
[2022-10-30] MEDS ORDERED: DEXAMETHASONE SOD PHOSPHATE 4 MG/ML 1 ML VIAL IVP ONE (10:26)
[2022-10-30] MEDS ORDERED: SUCCINYLCHOLINE CHLORIDE 200 MG/10 ML VIAL IV ONE (11:00)
[2022-10-30] MEDS ORDERED: KETOROLAC 15 MG/ML 1 ML VIAL ONE (11:00)
[2022-10-30] MEDS ORDERED: WATER FOR INJECTION, STERILE 10 ML VIAL IV ONE (11:00)
[2022-10-30] MEDS ORDERED: fentaNYL (PF) 50 MCG/ML 2 ML AMP ONE (11:00)
[2022-10-30] MEDS ORDERED: ePHEDrine 50 MG/ML 1 ML VIAL ONE (11:00)
[2022-10-30] MEDS ORDERED: GLYCOPYRROLATE 0.2 MG/ML 2 ML VIAL ONE (11:00)
[2022-10-30] MEDS ORDERED: LIDOCAINE 2% INJ 20 MG/ML (2 ML VIAL) ONE (11:00)
[2022-10-30] MEDS ORDERED: INDOCYANINE GREEN 25 MG VIAL IV ONE (11:00)
[2022-10-30] MEDS ORDERED: PROPOFOL 10 MG/ML 20 ML VIAL IV ONE (11:00)
[2022-10-30] MEDS ORDERED: HYDROmorphone (PF) 1 MG/ML ONE (11:00)
[2022-10-30] MEDS ORDERED: MIDAZOLAM 2 MG/2 ML VIAL ONE (11:00)
[2022-10-30] MEDS ORDERED: ROCURONIUM 10 MG/ML (5 ML VIAL) IV ONE (11:00)
[2022-10-30] MEDS ORDERED: NEOSTIGMINE 1 MG/ML 10 ML VIAL ONE (11:00)
[2022-10-30 11:14] LABS: ALT 50 U/L (4-34); AST 39 U/L (14-36); African American GFR (CKD) >90 (>60 ml/min/1.73 sqM); Albumin 4.5 g/dL (3.5-5.0); Alkaline Phosphatase 92 U/L (38-126); Anion Gap 4 mmol/L; Blood Urea Nitrogen 16 mg/dL (7-17); Calcium 9.2 mg/dL (8.4-10.2); Carbon Dioxide 33 mmol/L (22-30); Chloride 105 mmol/L (98-107); Glucose 86 mg/dL (74-99); Non-African American GFR(CKD) >90 (>60 ml/min/1.73 sqM); Potassium 4.3 mmol/L (3.5-5.1); Sodium 142 mmol/L (137-145); Total Bilirubin 0.5 mg/dL (0.2-1.3); Total Protein 7.3 g/dL (6.3-8.2)
[2022-10-30] MEDS ORDERED: BUPIVACAIN-EPI 0.25%-1:200,000 30 ML VIAL SQ ONE (11:37)
[2022-10-30] MEDS ORDERED: LACTATED RINGERS 1,000 ML IV ONE ×2 (12:00→14:41)
[2022-10-30 12:35] VITALS: TEMP 97
[2022-10-30] MEDS ORDERED: oxyCODONE-APAP 7.5-325MG 1 EACH TAB PO PRN (13:23)
[2022-10-30] MEDS ORDERED: KETOROLAC 15 MG/ML 1 ML VIAL IVP STA (13:23)
--- NOTE | 2022-10-30 13:25 | P.OP ---
Date of Procedure: 10/30/22 Description of Procedure: SURGEON: MATEUS VITAL MD PREOPERATIVE DIAGNOSES: 1. Symptomatic gallstone 2. Right upper quadrant abdominal pain POSTOPERATIVE DIAGNOSES: 1. Symptomatic gallstone 2. Right upper quadrant abdominal pain 3. Chronic cholecystitis 4. Peritoneal adhesions, right upper quadrant OPERATION: Robotic-assisted da Shirlene Xi laparoscopic cholecystectomy, multiport with FIREFLY ESTIMATED BLOOD LOSS: 10 mL. SPECIMENS REMOVED: Gallbladder. COMPLICATIONS: None. OPERATIVE FINDINGS: 1. Moderate scarring over entire gallbladder with peritoneal adhesions, pericholecystic with features of chronic cholecystitis 2. Extensive lysis of adhesions over 50% of the case 3. Intra-abdominal adhesion of omentum to the left upper abdominal wall lysed 4. Small bowel unremarkable 5. Dilated common bile duct unharmed during procedure INDICATIONS: The patient is a 52-year-old female who presents with symptomatic gallstones. Robotic assisted laparoscopic approach was described. Benefits and risks of the procedure including but not limited to bleeding, infection, injury to the biliary tree was described. Informed consent was obtained. DESCRIPTION OF PROCEDURE: Patient was brought to the operating room, placed in supine position. After general induction, the abdomen had been prepped and draped in standard sterile fashion. The robotic da Shirlene XI system was primed. After a timeout protocol was performed, the patient had been prepped and draped in standard sterile fashion. The patient was injected with indocyanine green. A 5 mm 0 degrees laparoscopic trocar entry was performed along the left upper quadrant. The abdomen insufflated to 15 mmHg pressure which was tolerated well. Diagnostic laparoscopy demonstrated no injury to bowel viscera or mesentery. The liver surface was unremarkable. Next, two 8 mm robotic ports were placed along the right upper abdomen. The camera 8-mm port was maintained along the epigastrium. Another 8 mm port was placed along the left upper abdominal wall after exchanging the 5 mm port. Please note that the ports were placed at least 10 to 15 cm away from the target anatomy of the gallbladder. The robot was docked along the left lateral abdomen. The patient was repositioned in reverse Trendelenburg position. Using a grasper for arm 3, a grasper for arm 4, including hook cautery for arm 1, the robotic system was docked and primed as described. Instruments were interchanged by the assistant foreman including hook cautery, Bovie cautery and clip appliers. I had sat at the console. The gallbladder was scarred with peritoneal adhesions. Lysis of adhesions was performed to free the gallbladder from the surrounding tissues. Next attention was brought to the infundibulum and cystic structures. The infundibulum and cystic duct were dissected free from surrounding tissues. The cystic duct was isolated. FIREFLY was used to identify the cystic artery and cystic structures. A critical view of safety was obtained. Large PLASTIC clips were used throughout the entire case. Using a clip soft work wrapper layer and examiner, 2 clips were placed at the junction of the infundibulum and cystic duct. The cystic duct was divided between clips. Next, the cystic artery was similarly clipped and cauterized. Electro-Bovie cautery was used to remove the gallbladder from the hepatic fossa. Hemostasis was checked and found to be adequate. The robot was undocked. I re-scrubbed into the case. Using a 10 mm Endo Catch bag via the left upper quadrant incision, the specimen was removed from the abdominal cavity. All pneumoperitoneum instruments were evacuated from the abdominal cavity. The incisions were reapproximated using 4-0 Monocryl in an interrupted subcuticular fashion. Fascial defects were less than 8 mm in size. Please note along the trocar sites, local anesthetic was placed as a field block prior to insertion of all instruments. Liquid glue was applied to the skin. At the end of the procedure needle, sponge, and instrument count had been verified correct by the surgical supervisor. The patient was transferred to postanesthesia care unit in stable condition. Intraoperative films were shared with the patient's family. Plan - Discharge Summary Discharge Rx Participant: No New Discharge Prescriptions: New Simethicone [Gas-X] 125 mg PO AC-TID PRN #20 capsule PRN Reason: Pain Acetaminophen Tab [Tylenol Tab] 1,000 mg PO Q6HR PRN #30 tablet PRN Reason: Pain Continue Calcium Carbonate [Calcium] 600 mg PO HS Vitamin A [Vitamin A (8,000 Units = 2,400 MCG)] 2,400 mcg PO DAILY Cholecalciferol [Vitamin D3 (25 Mcg = 1000 Iu)] 25 mcg PO DAILY Multivit/Iron Sulf/Folic Acid [Multivitamin with Iron] 1 tab PO Q48H Omeprazole 20 mg PO DAILY PRN PRN Reason: Gi Upset FLUoxetine HCL [PROzac] 20 mg PO HS Multivitamins, Thera [Multivitamin (formulary)] 1 tab PO Q48H Discharge Medication List Calcium Carbonate [Calcium] 600 mg PO HS 07/25/20 [History] Cholecalciferol [Vitamin D3 (25 Mcg = 1000 Iu)] 25 mcg PO DAILY 06/06/21 [History] Vitamin A [Vitamin A (8,000 Units = 2,400 MCG)] 2,400 mcg PO DAILY 06/06/21 [History] FLUoxetine HCL [PROzac] 20 mg PO HS 09/11/22 [History] Multivit/Iron Sulf/Folic Acid [Multivitamin with Iron] 1 tab PO Q48H 10/23/22 [History] Multivitamins, Thera [Multivitamin (formulary)] 1 tab PO Q48H 10/23/22 [History] Omeprazole 20 mg PO DAILY PRN 10/23/22 [History] Acetaminophen Tab [Tylenol Tab] 1,000 mg PO Q6HR PRN #30 tablet 10/30/22 [Rx] Simethicone [Gas-X] 125 mg PO AC-TID PRN #20 capsule 10/30/22 [Rx] [facility]Ref[place] [facility] [place] Patient Instructions/Handouts: *Surgery [facility] - (Anesthesia) Discharge Instructions Outpatient Surgery, Laparoscopic Cholecystectomy (DC), Low Fat Diet (DC), *Sur[facility] - Managing Your Pain After Surgery Without Opioids, Lysis of Abdominal Adhesions (DC) Activity/Diet/Wound Care/Special Instructions: Recommend low-fat diet for the next 2 days. No lifting over 10 pounds in 2 weeks until Nov 13. May shower. No bath tub [place] for two weeks until Nov 13. Diet as tolerated. Use Tylenol, simethicone and ibuprofen or Aleve scheduled for the next 24-48 hours for best pain relief. Use ice along incisions for today to prevent swelling. No Jujitsu until 11/30/22 Discharge Disposition: HOME SELF-CARE
[2022-10-30 13:34] VITALS: RESP 15
[2022-10-30 15:01] VITALS: BP 106/70; PULSE 63
== END 2022-10-30 15:48 | disposition home or self-care (01) ==
LOC: OR 10:18
PROVIDERS: ATTEND Surgery Plastic and Reconstructive Surgery
DX: K80.10 Calculus of gallbladder with chronic cholecystitis without obstruction (principal); K66.0 Peritoneal adhesions (postprocedural) (postinfection); K83.8 Other specified diseases of biliary tract; Z79.52 Long term (current) use of systemic steroids; Z79.1 Long term (current) use of non-steroidal anti-inflammatories (NSAID); Z79.01 Long term (current) use of anticoagulants; Z79.899 Other long term (current) drug therapy; J45.909 Unspecified asthma, uncomplicated; M19.90 Unspecified osteoarthritis, unspecified site; Z87.19 Personal history of other diseases of the digestive system; R73.03 Prediabetes; Z98.84 Bariatric surgery status; Z98.890 Other specified postprocedural states; Z87.891 Personal history of nicotine dependence; Z80.3 Family history of malignant neoplasm of breast; Z82.0 Family history of epilepsy and other diseases of the nervous system; Z79.810 Long term (current) use of selective estrogen receptor modulators (SERMs)
CPT/HCPCS: 80053; 47562; J2250; J0330; J1100; J2710; J0690; J2405; J3010; J1170; J1885; J2704; J1644; J2001; 88304

== ENCOUNTER → 2022-11-05 | Outpatient (CLI) | payer BC ==
[2022-11-05 15:49] VITALS: BP 95/63; PULSE 82; RESP 16; TEMP 98.3; BMI 22.6
--- NOTE | 2022-11-05 17:13 | P.BASOAP ---
Subjective Progress Note Date: 11/05/22 Epigastric abdominal pain resolved. No diarrhea. Mild nausea resolved. Stable for return to work. Doing well status post cholecystectomy for acalculus cholecystitis Objective - Vital Signs Vital signs: Vital Signs Temp 98.3 F 11/05/22 15:45 Pulse 82 11/05/22 15:45 Resp 16 11/05/22 15:45 BP 95/63 11/05/22 15:45 Pulse Ox FiO2 Intake & Output 11/04/22 11/05/22 11/05/22 18:59 06:59 18:59 Weight 57.606 kg Assessment/Plan Plan: Date: 11/05/22 Initial Weight: 93.213 kg Initial BMI: 36.6 Current Weight: 57.606 kg Current BMI: 22.6 Type of Surgery: Reanna-en-Y Gastric Bypass Total Volume in Band: Previous Volume: Volume Removed: Volume Added: Band Size:
== END ==
LOC: BARWHC3 15:38
PROVIDERS: ATTEND Surgery Plastic and Reconstructive Surgery
DX: E66.01 Morbid (severe) obesity due to excess calories (principal); Z98.84 Bariatric surgery status; Z68.22 Body mass index [BMI] 22.0-22.9, adult; Z87.891 Personal history of nicotine dependence
CPT/HCPCS: 99211

== ENCOUNTER → 2023-03-25 | Outpatient (CLI) | payer BC ==
[2023-03-25 15:55] VITALS: BP 96/60; PULSE 66; TEMP 98.3; BMI 23.7
--- NOTE | 2023-03-25 16:51 | P.HPBAR ---
Bariatric H&P - History & Physicial H&P Date: 03/25/23 History & Physicial: Visit/CC: weight gain Patient initial contact: Initial weight: 93.213 kg Initial weight in pounds: 205.50 Height: 5 ft 2.75 in Initial BMI: 36.6 Last weight: Current weight: 60.328 kg Current weight in pounds: 133.00 Current BMI: 23.7 [place] body weight (based on NIH guidelines): 51.596 kg Excess body weight loss: 79.0% The patient is a 52 year-old F who presents for Bariatric Assessment. She complains of symptoms of left upper quadrant abdominal and adhesions. She has severe symptoms of thiamine deficiency forgetfulness, leg numbness. Her father has Parkinsons. May benefit from lysis of adhesions. Past Medical History Past Medical History: Asthma, GERD/Reflux, Osteoarthritis (OA) Additional Past Medical History / Comment(s): stomach pain,food feels like its getting stuck and vomiting had a stricture and was tx, HX gastric ulcers HX SVT monitored by Dr Flor, EXERCISE INDUCED ASTHMA, CONSTIPATION, ARTHRITIS IN BACK & KNEES, HX BORDERLINE DIABETES , A1C normal now for about 2 yrs, no meds no accuchecks any more. Acid reflux resolved. pt has essure device for contraception. recent abdominal pain. - gallbladder History of Any Multi-Drug Resistant Organisms: None Reported Past Surgical History: Bariatric Surgery, Cholecystectomy, Orthopedic Surgery, Uterine Ablation Additional Past Surgical History / Comment(s): Leep surgery, LT ACL repair, ELOISA N Y. MULTIPLE EGD'S w/ dilation, scope for ulcer check. lap choly 10-30-22 Past Anesthesia/Blood Transfusion Reactions: Family History of Problems w/ Anesthesia, Motion Sickness Additional Past Anesthesia/Blood Transfusion Reaction / Comm: Mom has difficulty waking up. Past Psychological History: Anxiety, Depression Additional Psychological History / Comment(s): . Smoking Status: Former smoker Past Alcohol Use History: None Reported Additional Past Alcohol Use History / Comment(s): QUIT SMOKING MARCH 19, 2020, SMOKED 1 TO [facility] ,. SMOKED ON AND OFF FOR 12 YEARS. Past Drug Use History: None Reported - Past Family History Mother Family Medical History: Cancer Additional Family Medical History / Comment(s): BREAST CANCER, noncancerous brain tumors. Surgical - Exam Vital Signs Temp Pulse BP 98.3 F 66 96/60 03/25/23 15:50 03/25/23 15:50 03/25/23 15:50 Bariatric Checklist Checklist: Plan: Checklist: EGD: 1. Hiatal hernia: 2. H. Pylori: HgbA1c: Vitamin D: Smoking: Former smoker Primary care physician referral: alo martin Psychiatry clearance: Cardiology clearance: Sleep study: Diet journal: VTE risk score: VTE risk level: Rehab needs at discharge:
== END ==
LOC: BARWHC3 15:21
PROVIDERS: ATTEND Surgery Plastic and Reconstructive Surgery
DX: E66.01 Morbid (severe) obesity due to excess calories (principal); J45.909 Unspecified asthma, uncomplicated; K21.9 Gastro-esophageal reflux disease without esophagitis; M19.90 Unspecified osteoarthritis, unspecified site; Z87.891 Personal history of nicotine dependence
CPT/HCPCS: 99211

== ENCOUNTER → 2023-03-30 | Outpatient (CLI) | payer BC ==
[2023-03-30 13:30] LABS: Partial Thromboplastin Time 22.7 sec (22.0-30.0)
[2023-03-30 15:38] LABS: ALT 85 U/L (8-44); AST 55 U/L (13-35); African American GFR (CKD) 99.6 (60.0-200.0); Albumin 4.5 g/dL (3.8-4.9); Albumin/Globulin Ratio 1.96 (1.60-3.17); Alkaline Phosphatase 105 U/L (41-126); BUN/Creat Ratio 29.13 Ratio (12.00-20.00); Blood Urea Nitrogen 23.3 mg/dL (9.0-27.0); Calcium 9.7 mg/dL (8.7-10.3); Carbon Dioxide 26.1 mmol/L (20.0-27.5); Chloride 103 mmol/L (96-109); Chol/HDL Ratio 2.72 Ratio; Globulin 2.3 g/dL (1.6-3.3); Glucose 90 mg/dL (70-110); LDL Cholesterol,Calculated 97.8 mg/dL (0.0-131.0); Phosphorus 2.6 mg/dL (2.4-5.1); Potassium 4.3 mmol/L (3.5-5.5); Prealbumin 22.9 mg/dL (18.0-42.0); Sodium 142 mmol/L (135-145); Total Protein 6.8 g/dL (6.2-8.2); VLDL Calculation 16.02 mg/dL (5.00-40.00)
[2023-03-30 15:43] LABS: Follicle Stimulating Hormone 78.5 mIU/mL
[2023-03-30 15:46] LABS: HCT 42.3 % (37.2-46.3); HGB 13.5 g/dL (12.0-15.0); MCH 31.3 pg (27.0-32.0); MCHC 31.9 g/dL (32.0-37.0); MCV 98.1 fL (80.0-97.0); Mean Platelet Volume 10.2 fL (9.5-12.2); NRBC Per 100 WBC 0.3 /100 WBCS (0.0-0.0); Platelet Count 215 X 10*3/uL (140-440); RBC 4.31 X 10*6/uL (4.10-5.20); RDW 12.1 % (11.5-14.5); WBC 7.89 X 10*3/uL (4.50-10.00)
[2023-03-31 11:58] LABS: Zinc, Serum 60 ug/dL (60-130)
[2023-03-31 16:30] LABS: Estrogens Total 45 pg/mL
[2023-04-01 09:37] LABS: Vit B1(Thiamine) 84 ug/L (38-122)
== END | disposition home or self-care (01) ==
LOC: LABWHC1 11:39
PROVIDERS: ATTEND Surgery Plastic and Reconstructive Surgery
DX: E66.01 Morbid (severe) obesity due to excess calories (principal); E44.0 Moderate protein-calorie malnutrition; E44.1 Mild protein-calorie malnutrition; E45 Retarded development following protein-calorie malnutrition; E46 Unspecified protein-calorie malnutrition; K74.1 Hepatic sclerosis; N19 Unspecified kidney failure; T56.894A Toxic effect of other metals, undetermined, initial encounter; K50.90 Crohn's disease, unspecified, without complications; Z98.84 Bariatric surgery status; N95.9 Unspecified menopausal and perimenopausal disorder; M54.50 Low back pain, unspecified; F90.8 Attention-deficit hyperactivity disorder, other type; F41.9 Anxiety disorder, unspecified; F32.A Depression, unspecified; E78.5 Hyperlipidemia, unspecified; E34.9 Endocrine disorder, unspecified; E28.39 Other primary ovarian failure
CPT/HCPCS: 36415; 80053; 80061; 82525; 82672; 82746; 83001; 83970; 84100; 84134; 84255; 84425; 84443; 84630; 85027; 85610; 85730

== ENCOUNTER → 2023-07-22 | Outpatient (CLI) | payer BC ==
--- NOTE | 2023-07-23 08:47 | MM ---
Reason for Exam: Screening (asymptomatic). Last mammogram was performed 2 year(s) and 7 month(s) ago. Patient History: Menarche at age 14. First Full-Term at age 35. Late child-bearing (after 30). Postmenopausal. Patient has history of breast feeding. Hormonal Contraceptives for 12 years from age 16 until age 34. Paternal aunt had breast cancer. Mother had breast cancer, age 68. Risk Values: Betzy 5 year model risk: 2.0%. NCI Lifetime model risk: 17.3%. Prior Study Comparison: 06/18/2018 Bilateral Screening Mammogram, [facility]. 06/23/2018 Right Diagnostic Mammogram, [facility]. 12/13/2020 Bilateral Screening Mammogram, [facility]. Tissue Density: The breast tissue is heterogeneously dense. This may lower the sensitivity of mammography. Findings: Analyzed By CAD. There is no suspicious group of microcalcifications or new suspicious mass in either breast. Overall Assessment: Negative, BI-RAD 1 Management: Screening Mammogram of both breasts in 1 year. . Patient should continue monthly self-breast exams. A clinical breast exam by your physician is recommended on an annual basis. This exam should not preclude additional follow-up of suspicious palpable abnormalities. Note on Betzy scores and lifetime risk: 1. A Betzy score greater than 3% is considered moderate risk. If this is the case, consider specialist referral to assess eligibility for a risk reducing agent. 2. If overall lifetime risk for the development of breast cancer is 20% or higher, the patient may qualify for future screening with alternating mammogram and breast MRI. Electronically signed and approved by: Justo Cheney M.D. Radiologis
== END | disposition home or self-care (01) ==
LOC: RADMAMWWP 07:10
PROVIDERS: ATTEND Obstetrics & Gynecology Obstetrics
DX: Z12.31 Encounter for screening mammogram for malignant neoplasm of breast (principal); Z78.0 Asymptomatic menopausal state; Z80.3 Family history of malignant neoplasm of breast
CPT/HCPCS: 77063; 77067

== ENCOUNTER → 2025-01-25 | Outpatient (CLI) | payer BC ==
[2025-01-25 17:25] LABS: Urine Alcohol Negative (Negative); Urine Barbiturate Negative (Negative); Urine Cocaine Negative (Negative); Urine Methadone Negative (Negative); Urine Opiates Negative (Negative); Urine Phencyclidine Negative (Negative)
== END | disposition home or self-care (01) ==
LOC: LABWHC1 11:38
PROVIDERS: ATTEND Psychiatry & Neurology Psychiatry
DX: Z51.81 Encounter for therapeutic drug level monitoring (principal); F33.1 Major depressive disorder, recurrent, moderate
CPT/HCPCS: 80306

== ENCOUNTER → 2025-03-06 | Outpatient (CLI) | payer BC ==
--- NOTE | 2025-03-06 07:52 | MM ---
Reason for Exam: Screening (asymptomatic). Last mammogram was performed 1 year(s) and 7 month(s) ago. Patient History: Menarche at age 14. First Full-Term at age 35. Late child-bearing (after 30). Postmenopausal. Patient has history of breast feeding. Hormonal Contraceptives for 12 years from age 16 until age 34. Currently using Estrogen and Progesterone, starting at age 53. Paternal aunt had breast cancer. Mother had breast cancer, age 68. Risk Values: Betzy 5 year model risk: 2.1%. NCI Lifetime model risk: 16.7%. Prior Study Comparison: 06/23/2018 Right Diagnostic Mammogram, [facility]. 12/13/2020 Bilateral Screening Mammogram, [facility]. 07/22/2023 Bilateral MG 3D screening mammo w/cad, [facility]. Tissue Density: The breasts are heterogeneously dense, which may obscure small masses. Findings: Analyzed By CAD. There is no suspicious group of microcalcifications or new suspicious mass in either breast. Overall Assessment: Negative, BI-RAD 1 Management: Screening Mammogram of both breasts in 1 year. . Patient should continue monthly self-breast exams. A clinical breast exam by your physician is recommended on an annual basis. This exam should not preclude additional follow-up of suspicious palpable abnormalities. Note on Betzy scores and lifetime risk: 1. A Betzy score greater than 3% is considered moderate risk. If this is the case, consider specialist referral to assess eligibility for a risk reducing agent. 2. If overall lifetime risk for the development of breast cancer is 20% or higher, the patient may qualify for future screening with alternating mammogram and breast MRI. [facility], , 03/06/2025 7:49 AM. Electronically signed and approved by: Rashi Cash M.D.
--- NOTE | 2025-03-06 07:54 | CTL ---
EXAMINATION TYPE: CT Low Dose Lung DATE OF EXAM: 03/06/2025 7:37 AM COMPARISON: None. 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 TECHNIQUE: Low Dose CT Lung Screening, Low dose computed tomography scan was performed through the est at 1 millimeter thick sections and reconstructed images in the coronal plane at 1 mm thick sectio ns. IV CONTRAST USED: None. SCREENING VISIT: First visit CT DLP: 58.10 mGycm, Automated exposure control for dose reduction was used. CT CTDI: 1.6 mGy FINDINGS: CT DIAGNOSTIC QUALITY: Satisfactory LUNG NODULES: Not presentLeft lung: no nodules identified.Right lung: no nodules identified. LUNGS: COPD: Severity: None Fibrosis: Severity:None Lymph nodes: None Other findings: None RIGHT PLEURAL SPACE: Effusion: None Calcification: None Thickening: None Pneumothorax: None LEFT PLEURAL SPACE: Effusion: None Calcification: None Thickening: None Pneumothorax: None HEART: * Size within normal limits. * No significant coronary artery calcifications. OTHER FINDINGS: Upper abdomen: No significant abnormality Bony thorax: Degenerative changes Supraclavicular region: No significant abnormalityOther: No significant abnormalityI IMPRESSION: 1. No clinically significant pulmonary nodules. 2. Mild emphysema. CT LUNG RAD AND CT CHEST RECOMMENDATION: Lung-Rad 1 Negative: Continue annual screening with LDCT in 12 months. S Modifier (other clinically significant findings): [facility], , 03/06/2025 7:52 AM
== END | disposition home or self-care (01) ==
LOC: RADMAMWWP 06:49
PROVIDERS: ATTEND Family Medicine
DX: Z12.31 Encounter for screening mammogram for malignant neoplasm of breast (principal); Z12.2 Encounter for screening for malignant neoplasm of respiratory organs; R92.323 Mammographic fibroglandular density, bilateral breasts; J43.9 Emphysema, unspecified; Z78.0 Asymptomatic menopausal state; Z80.3 Family history of malignant neoplasm of breast; Z92.0 Personal history of contraception; Z87.891 Personal history of nicotine dependence
CPT/HCPCS: 71271; 77067